=== PATIENT | male | born 1945 | race Caucasian/White ===

== ENCOUNTER 2017-06-28 10:09 | Inpatient (IN) | payer MEDICARE, OTHER ==
--- NOTE | 2017-06-28 11:17 | ED ---
Weakness HPI - General Chief complaint: Weakness Stated complaint: sent by doctor Time Seen by Provider: 06/28/17 10:45 Source: patient, RN notes reviewed Mode of arrival: wheelchair Limitations: no limitations - History of Present Illness Initial comments: This is a 72-year-old male who was sent from an outpatient clinic for evaluation for possible DVT. Patient has had a cough for about 2 weeks even feeling weak tired he developed a fever last evening he also has erythema and a positive Homans sign to the right lower extremity. He did have a blood pressure 104/68 QRS 96 and a room air at the clinic. He has no prior history of DVTs. His other complaints at this time MD Complaint: generalized weakness - Related Data Home Medications Medication Instructions Recorded Confirmed Acetaminophen [Tylenol] 500 mg PO BID 06/28/17 06/28/17 Allopurinol [Zyloprim] 300 mg PO DAILY 06/28/17 06/28/17 Aspirin EC [Ecotrin] 325 mg PO DAILY 06/28/17 06/28/17 Atorvastatin [Lipitor] 40 mg PO DAILY 06/28/17 06/28/17 Furosemide [Lasix] 20 mg PO DAILY 06/28/17 06/28/17 Gemfibrozil [Lopid] 600 mg PO AC-BID 06/28/17 06/28/17 Glimepiride [Amaryl] 1 mg PO DAILY 06/28/17 06/28/17 Lisinopril [Zestril] 20 mg PO DAILY 06/28/17 06/28/17 Metoprolol Tartrate [Lopressor] 50 mg PO BID 06/28/17 06/28/17 Multivitamins, Thera [Multivitamin 1 tab PO DAILY 06/28/17 06/28/17 (formulary)] Omega3/Dha/Epa/Fish Oil/Vit D3 1 cap PO BID 06/28/17 06/28/17 [Fish Oil-Vit D3 Softgel] Pantoprazole Sodium 40 mg PO DAILY 06/28/17 06/28/17 Potassium Chloride ER [K-Dur 10] 10 meq PO DAILY 06/28/17 06/28/17 Allergies Allergy/AdvReac Type Severity Reaction Status Date / Time No Known Allergies Allergy Verified 06/28/17 10:34 Review of Systems ROS Statement: Those systems with pertinent positive or pertinent negative responses have been documented in the HPI. ROS Other: All systems not noted in ROS Statement are negative. Past Medical History Past Medical History: Diabetes Mellitus, Hyperlipidemia, Hypertension History of Any Multi-Drug Resistant Organisms: None Reported Past Surgical History: Coronary Bypass/CABG, Heart Catheterization, Orthopedic Surgery Additional Past Surgical History / Comment(s): bl KNEE Past Psychological History: No Psychological Hx Reported Smoking Status: Never smoker Past Alcohol Use History: None Reported Past Drug Use History: None Reported General Exam - General Exam Comments Initial Comments: This is a well-developed well-nourished awake alert oriented times 3 male Limitations: no limitations General appearance: alert, in no apparent distress Head exam: Present: atraumatic, normocephalic, normal inspection Eye exam: Present: normal appearance, PERRL, EOMI. Absent: scleral icterus, conjunctival injection, periorbital swelling ENT exam: Present: normal exam, mucous membranes moist Neck exam: Present: normal inspection. Absent: tenderness, meningismus, lymphadenopathy Respiratory exam: Present: normal lung sounds bilaterally. Absent: respiratory distress, wheezes, rales, rhonchi, stridor Cardiovascular Exam: Present: regular rate, normal rhythm, normal heart sounds. Absent: systolic murmur, diastolic murmur, rubs, gallop, clicks GI/Abdominal exam: Present: soft, normal bowel sounds. Absent: distended, tenderness, guarding, rebound, rigid Extremities exam: Present: full ROM, normal capillary refill, other (Right calf tenderness with erythema noted to the anterior right lower extremity consistent with a localized cellulitis. No palpable cords.). Absent: tenderness, pedal edema, joint swelling, calf tenderness Back exam: Present: normal inspection Neurological exam: Present: alert, oriented X3, CN II-XII intact Psychiatric exam: Present: normal affect, normal mood Skin exam: Present: warm, dry, intact, normal color. Absent: rash Course Vital Signs 06/28/17 06/28/17 06/28/17 10:16 11:20 12:00 Temperature 100.4 F H Pulse Rate 79 60 74 Respiratory 18 18 18 Rate Blood Pressure 112/71 127/66 108/66 O2 Sat by Pulse 95 95 97 Oximetry 06/28/17 06/28/17 13:00 14:00 Temperature Pulse Rate 78 80 Respiratory 18 18 Rate Blood Pressure 108/66 124/67 O2 Sat by Pulse 94 L 96 Oximetry EKG Findings - EKG Results: EKG: interpreted by BEATRIZ, sinus rhythm (Sinus rhythm rate 67. Interval 190 QRS duration 86 QT since QTC of 406/429, Q waves in lead [address]-T wave changes) Medical Decision Making - Medical Decision Making I did a long discussion with the patient and family regarding findings. Discuss case with the inpatient physician. Patient be admitted place an IV antibiotics. - Lab Data Result diagrams: 06/28/17 10:36 06/28/17 10:36 Lab Results 06/28/17 06/28/17 06/28/17 Range/Units 10:36 10:36 10:36 WBC (3.8-10.6) k/uL RBC (4.30-5.90) m/uL Hgb (13.0-17.5) gm/dL Hct (39.0-53.0) % MCV (80.0-100.0) fL MCH (25.0-35.0) pg MCHC (31.0-37.0) g/dL RDW (11.5-15.5) % Plt Count (150-450) k/uL Neutrophils % % Lymphocytes % % Monocytes % % Eosinophils % % Basophils % % Neutrophils # (1.3-7.7) k/uL Lymphocytes # (1.0-4.8) k/uL Monocytes # (0-1.0) k/uL Eosinophils # (0-0.7) k/uL Basophils # (0-0.2) k/uL PT (9.0-12.0) sec INR (<1.2) APTT (22.0-30.0) sec D-Dimer (<0.60) mg/L FEU Sodium 144 (137-145) mmol/L Potassium 4.9 (3.5-5.1) mmol/L Chloride 107 (98-107) mmol/L Carbon Dioxide 24 (22-30) mmol/L Anion Gap 13 mmol/L BUN 24 H (9-20) mg/dL Creatinine 1.45 H (0.66-1.25) mg/dL Est GFR (MDRD) Af Amer 58 (>60 ml/min/1.73 sqM) Est GFR (MDRD) Non-Af 48 (>60 ml/min/1.73 sqM) Glucose 103 H (74-99) mg/dL Calcium 9.2 (8.4-10.2) mg/dL Magnesium 1.7 (1.6-2.3) mg/dL Total Bilirubin 1.2 (0.2-1.3) mg/dL AST 54 (17-59) U/L ALT 62 (21-72) U/L Alkaline Phosphatase 73 (38-126) U/L Total Creatine Kinase 148 (55-170) U/L CK-MB (CK-2) 0.7 (0.0-2.4) ng/mL CK-MB (CK-2) Rel Index 0.5 Troponin I <0.012 (0.000-0.034) ng/mL NT-Pro-B Natriuret Pep 218 pg/mL Total Protein 7.2 (6.3-8.2) g/dL Albumin 4.5 (3.5-5.0) g/dL Urine Color Urine Appearance (Clear) Urine pH (5.0-8.0) Ur Specific [place] (1.001-1.035) Urine Protein (Negative) Urine Glucose (UA) (Negative) Urine Ketones (Negative) Urine Blood (Negative) Urine Nitrite (Negative) Urine Bilirubin (Negative) Urine Urobilinogen (<2.0) mg/dL Ur Leukocyte Esterase (Negative) 06/28/17 06/28/17 06/28/17 Range/Units 10:36 10:36 11:43 WBC 11.4 H (3.8-10.6) k/uL RBC 4.89 (4.30-5.90) m/uL Hgb 15.0 (13.0-17.5) gm/dL Hct 44.2 (39.0-53.0) % MCV 90.2 (80.0-100.0) fL MCH 30.7 (25.0-35.0) pg MCHC 34.1 (31.0-37.0) g/dL RDW 13.7 (11.5-15.5) % Plt Count 162 (150-450) k/uL Neutrophils % 69 % Lymphocytes % 17 % Monocytes % 9 % Eosinophils % 1 % Basophils % 1 % Neutrophils # 7.9 H (1.3-7.7) k/uL Lymphocytes # 2.0 (1.0-4.8) k/uL Monocytes # 1.0 (0-1.0) k/uL Eosinophils # 0.1 (0-0.7) k/uL Basophils # 0.1 (0-0.2) k/uL PT 11.7 (9.0-12.0) sec INR 1.2 H (<1.2) APTT 23.6 (22.0-30.0) sec D-Dimer 0.58 (<0.60) mg/L FEU Sodium (137-145) mmol/L Potassium (3.5-5.1) mmol/L Chloride (98-107) mmol/L Carbon Dioxide (22-30) mmol/L Anion Gap mmol/L BUN (9-20) mg/dL Creatinine (0.66-1.25) mg/dL Est GFR (MDRD) Af Amer (>60 ml/min/1.73 sqM) Est GFR (MDRD) Non-Af (>60 ml/min/1.73 sqM) Glucose (74-99) mg/dL Calcium (8.4-10.2) mg/dL Magnesium (1.6-2.3) mg/dL Total Bilirubin (0.2-1.3) mg/dL AST (17-59) U/L ALT (21-72) U/L Alkaline Phosphatase (38-126) U/L Total Creatine Kinase (55-170) U/L CK-MB (CK-2) (0.0-2.4) ng/mL CK-MB (CK-2) Rel Index Troponin I (0.000-0.034) ng/mL NT-Pro-B Natriuret Pep pg/mL Total Protein (6.3-8.2) g/dL Albumin (3.5-5.0) g/dL Urine Color Light Yellow Urine Appearance Clear (Clear) Urine pH 5.0 (5.0-8.0) Ur Specific [place] 1.005 (1.001-1.035) Urine Protein Negative (Negative) Urine Glucose (UA) Negative (Negative) Urine Ketones Negative (Negative) Urine Blood Negative (Negative) Urine Nitrite Negative (Negative) Urine Bilirubin Negative (Negative) Urine Urobilinogen <2.0 (<2.0) mg/dL Ur Leukocyte Esterase Negative (Negative) - Radiology Data Radiology results: report reviewed (I did review the imaging and reports no evidence of pulmonary emboli.), image reviewed Disposition Clinical Impression: Cellulitis of right lower extremity, Febrile illness, acute, Leg pain Disposition: ADMITTED IP TO THIS [facility] Condition: Stable Referrals: Angeline Iglesias DO [Primary Care Provider] - 1-2 days Decision Time: 14:30
[2017-06-28 11:48] LABS: Basophils # (A) 0.1 k/uL (0-0.2); Basophils % (A) 1 %; CH 30.7; CHCM 34.2; Eosinophils # (A) 0.1 k/uL (0-0.7); Eosinophils % (A) 1 %; HCT 44.2 % (39.0-53.0); HDW 2.58; Luc # (Auto) 0.36; Luc % (Auto) 3; Lymphocytes % (A) 17 %; MCH 30.7 pg (25.0-35.0); MCHC 34.1 g/dL (31.0-37.0); MCV 90.2 fL (80.0-100.0); Mean Platelet Volume 7.6; Monocytes % (A) 9 %; Neutrophils # (A) 7.9 k/uL (1.3-7.7); Neutrophils % (A) 69 %; RBC 4.89 m/uL (4.30-5.90); RDW 13.7 % (11.5-15.5); WBC 11.4 k/uL (3.8-10.6); WBC (Perox) 10.88
[2017-06-28 11:53] LABS: Calcium 9.2 mg/dL (8.4-10.2); Magnesium 1.7 mg/dL (1.6-2.3); Total Bilirubin 1.2 mg/dL (0.2-1.3); Total Protein 7.2 g/dL (6.3-8.2)
[2017-06-28 11:54] LABS: Potassium 4.9 mmol/L (3.5-5.1)
[2017-06-28 11:58] LABS: INR 1.2 (<1.2); Partial Thromboplastin Time 23.6 sec (22.0-30.0); Prothrombin Time 11.7 sec (9.0-12.0)
[2017-06-28 12:04] LABS: Appearance,Urine Clear (Clear); Bilirubin,Urine Negative (Negative); Glucose,Urine (UA) Negative (Negative); Ketones,Urine Negative (Negative); Leukocyte Esterase,Urine Negative (Negative); Nitrite,Urine Negative (Negative); Protein,Urine Negative (Negative); Specific Gravity,Urine 1.005 (1.001-1.035); UA Billing (MACRO vs. MICRO) CHEM; Urobilinogen,Urine <2.0 mg/dL (<2.0)
[2017-06-28 12:05] LABS: Creatine Kinase 148 U/L (55-170)
--- NOTE | 2017-06-28 12:11 | XR ---
EXAMINATION TYPE: XR chest 2V DATE OF EXAM: 06/28/2017 COMPARISON: None HISTORY: 72-year-old male with weakness TECHNIQUE: Frontal and lateral views FINDINGS: Heart is normal size. Median sternotomy wires with post-CABG clips. Strandy atelectasis in the lower lungs. No consolidation or pleural effusion. Bridging anterior endplate spondylosis upper to midthora cic spine suggestive of DISH. IMPRESSION: No acute cardiopulmonary process.
[2017-06-28 12:18] LABS: Creatine Kinase MB 0.7 ng/mL (0.0-2.4); Troponin I <0.012 ng/mL (0.000-0.034)
--- NOTE | 2017-06-28 12:58 | US ---
EXAMINATION TYPE: US venous doppler duplex LE RT DATE OF EXAM: 06/28/2017 12:31 PM COMPARISON: NONE CLINICAL HISTORY: 72-year-old male with Pain. SIDE PERFORMED: Right TECHNIQUE: The lower extremity deep venous system is examined utilizing real time linear array sonog aneesh with graded compression, doppler sonography and color-flow sonography. FINDINGS: [employer] ARCHITECT NOTES: Patient of large body habitus making exam technically difficult. VESSELS IMAGED: External Iliac Vein (EIV) Common Femoral Vein Deep Femoral Vein Greater Saphenous Vein * Femoral Vein Popliteal Vein Small Saphenous Vein * Proximal Calf Veins (* superficial vessels) Right Leg: Appears negative for DVT. IMPRESSION: Technically difficult exam but without evidence for DVT within the right lower extremity imaged from the groin to the upper calf.
[2017-06-28] MEDS ORDERED: PIPERACILLIN-TAZOBACTAM 3.375 GM in DEXTROSE/WATER 1 50ML.BAG IVPB STA (14:02)
[2017-06-28] MEDS ORDERED: NALOXONE 0.4 MG/ML 1 ML VIAL IV PRN (15:28)
[2017-06-28] MEDS ORDERED: ACETAMINOPHEN TAB 325 MG TAB PO PRN (15:28)
[2017-06-28 16:52] VITALS: BMI 38.5
[2017-06-28] MEDS: SODIUM CHLORIDE 0.9% 1,000 ML IV SCH (17:02)
[2017-06-28] MEDS: HEPARIN SODIUM,PORCINE 5,000 UNIT/ML 1 ML VIAL SQ SCH ×2 (17:03→23:12)
[2017-06-28] MEDS ORDERED: GEMFIBROZIL 600 MG TAB PO SCH (17:30)
[2017-06-28 17:32] LABS: Glucose,Whole Blood 89 mg/dL (75-99)
[2017-06-28] MEDS: INSULIN LISPRO (humaLOG) 300 UNIT/3 ML VIAL SQ SCH ×2 (17:38→21:13)
[2017-06-28 17:55] LABS: Hemoglobin A1C 6.8 % (4.2-6.1)
[2017-06-28 20:05] LABS: Glucose,Whole Blood 101 mg/dL (75-99)
[2017-06-28] MEDS ORDERED: EPA PO SCH (21:00)
[2017-06-28] MEDS ORDERED: VIT D3 PO SCH (21:00)
[2017-06-28] MEDS ORDERED: DHA PO SCH (21:00)
[2017-06-28] MEDS ORDERED: FISH OIL PO SCH (21:00)
[2017-06-28] MEDS ORDERED: OMEGA3 PO SCH (21:00)
[2017-06-28] MEDS: GEMFIBROZIL 600 MG TAB PO SCH (21:11)
[2017-06-28] MEDS: METOPROLOL TARTRATE 50 MG TAB PO SCH (21:11)
[2017-06-29] MEDS: GEMFIBROZIL 600 MG TAB PO SCH ×2 (06:14→22:00)
[2017-06-29 07:05] LABS: Glucose,Whole Blood 117 mg/dL (75-99)
[2017-06-29] MEDS: GLIMEPIRIDE 1 MG TAB PO SCH (08:13)
[2017-06-29] MEDS: ATORVASTATIN 40 MG TAB PO SCH (08:14)
[2017-06-29] MEDS: MULTIVITAMINS, THERA 1 EACH TAB PO SCH (08:14)
[2017-06-29] MEDS: LISINOPRIL 20 MG TAB PO SCH (08:14)
[2017-06-29] MEDS: POTASSIUM CHLORIDE ER 10 MEQ TAB.ER.PRT PO SCH (08:14)
[2017-06-29] MEDS: ASPIRIN 325 MG TAB PO SCH (08:14)
[2017-06-29] MEDS: METOPROLOL TARTRATE 50 MG TAB PO SCH ×2 (08:14→22:00)
[2017-06-29] MEDS: ALLOPURINOL 300 MG TAB PO SCH (08:15)
[2017-06-29] MEDS: INSULIN LISPRO (humaLOG) 300 UNIT/3 ML VIAL SQ SCH ×4 (08:15→23:27)
[2017-06-29] MEDS: PANTOPRAZOLE 40 MG TABLET PO SCH (08:15)
[2017-06-29] MEDS: HEPARIN SODIUM,PORCINE 5,000 UNIT/ML 1 ML VIAL SQ SCH ×3 (08:15→23:27)
[2017-06-29] MEDS ORDERED: FUROSEMIDE 20 MG TAB PO SCH (09:00)
[2017-06-29 11:39] LABS: Glucose,Whole Blood 201 mg/dL (75-99)
[2017-06-29] MEDS: SODIUM CHLORIDE 0.9% 1,000 ML IV SCH ×2 (11:45→18:20)
[2017-06-29] MEDS ORDERED: ceFAZolin 2 GM in SODIUM CHLORIDE 0.9% 100 ML IVPB SCH (12:00)
--- NOTE | 2017-06-29 14:13 | P.HPIM ---
History of Present Illness H&P Date: 06/29/17 Chief Complaint: Redness and pain right lower extremity This is a 72-year-old male, patient of [facility]. 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 Patient presents to the emergency room with complaints of redness along the right lower extremity with some pain and discomfort. His PCP was concerned about a possible DVT. A Doppler was completed and was negative for DVT. Patient was admitted to the hospital for right lower extremity cellulitis. He had low- grade temps of 100.4 and white count was elevated at 11.4. Patient was having fevers at home and a mild cough. But does admit to having chronic cough with his SALMA inhibitor that he just deals with. Patient also reports being in and February and had multiple ticks on his body. He doesn't remember having any tick bites. He also reports having a history of MRSA in his right great toe. Patient was given 1 dose of IV Zosyn in the emergency room. He'll be started on IV ceftezole and infectious disease consulted. Chest x-ray was negative and EKG shows normal sinus rhythm. Patient denies any chest pain or shortness of breath. Denies any nausea or vomiting. Denies any bowel movement changes or urinary symptoms. Review of Systems Please refer to HPI otherwise unremarkable Past Medical History Past Medical History: Diabetes Mellitus, Hyperlipidemia, Hypertension Additional Past Medical History / Comment(s): Coronary artery disease with previous CABG 3 vessel, myocardial infarction History of Any Multi-Drug Resistant Organisms: None Reported Past Surgical History: Coronary Bypass/CABG, Heart Catheterization, Orthopedic Surgery Additional Past Surgical History / Comment(s): bl KNEE Past Anesthesia/Blood Transfusion Reactions: No Reported Reaction Past Psychological History: No Psychological Hx Reported Smoking Status: Never smoker Past Alcohol Use History: None Reported Past Drug Use History: None Reported Medications and Allergies Home Medications Medication Instructions Recorded Confirmed Type Acetaminophen [Tylenol] 500 mg PO BID 06/28/17 06/28/17 History Allopurinol [Zyloprim] 300 mg PO DAILY 06/28/17 06/28/17 History Aspirin EC [Ecotrin] 325 mg PO DAILY 06/28/17 06/28/17 History Atorvastatin [Lipitor] 40 mg PO DAILY 06/28/17 06/28/17 History Furosemide [Lasix] 20 mg PO DAILY 06/28/17 06/28/17 History Gemfibrozil [Lopid] 600 mg PO AC-BID 06/28/17 06/28/17 History Glimepiride [Amaryl] 1 mg PO DAILY 06/28/17 06/28/17 History Lisinopril [Zestril] 20 mg PO DAILY 06/28/17 06/28/17 History Metoprolol Tartrate [Lopressor] 50 mg PO BID 06/28/17 06/28/17 History Multivitamins, Thera [Multivitamin 1 tab PO DAILY 06/28/17 06/28/17 History (formulary)] Omega3/Dha/Epa/Fish Oil/Vit D3 1 cap PO BID 06/28/17 06/28/17 History [Fish Oil-Vit D3 Softgel] Pantoprazole Sodium 40 mg PO DAILY 06/28/17 06/28/17 History Potassium Chloride ER [K-Dur 10] 10 meq PO DAILY 06/28/17 06/28/17 History Allergies Allergy/AdvReac Type Severity Reaction Status Date / Time hazelnut Allergy Anaphylaxis Verified 06/28/17 17:25 Physical Exam Vitals: Vital Signs Temp Pulse Pulse Resp BP BP Pulse Ox 06/29/17 08:00 68 16 06/29/17 07:00 98.5 F 68 16 135/74 95 06/29/17 00:00 92 16 06/28/17 23:09 98.1 F 100/67 06/28/17 21:56 100.4 F H 92 16 169/89 92 L 06/28/17 16:03 100 F H 79 20 124/67 96 Intake and Output 06/28/17 06/29/17 06/29/17 22:59 06:59 14:59 Intake Total 140 245 580 Balance 140 245 580 Intake: Intake, IV Titration 245 100 Amount Sodium Chloride 0.9% 1, 245 000 ml @ 75 mls/hr IV . [id number] MADDIE Rx#:[id number] ceFAZolin 2 gm In Sodium 100 Chloride 0.9% 100 ml @ 100 mls/hr IVPB Q8HR MADDIE Rx#:[id number] Oral 140 480 Other: Voiding Method Toilet # Voids 1 1 3 # Bowel Movements 1 Weight 125.191 kg 125.191 kg 125.191 kg Patient Weight 06/30/17 06:59 Weight 125.191 kg Head normocephalic Neck supple Lungs clear to auscultation bilaterally no wheezing or crackles Heart regular rate and rhythm S1-S2, no rub or gallop Abdomen is soft nontender nondistended positive bowel sounds no hepatosplenomegaly Extremities no edema. Right lower extremity along the medial aspect of the lower right leg evidence of erythema and warmth to touch. No significant pain with palpation Neuro alert and orientated to 3 Results CBC & Chem 7: 06/28/17 10:36 06/28/17 10:36 Labs: Abnormal Lab Results - Last 24 Hours (Table) 06/28/17 06/28/17 06/29/17 Range/Units 11:30 20:04 07:04 POC Glucose (mg/dL) 101 H 117 H (75-99) mg/dL Hemoglobin A1c 6.8 H (4.2-6.1) % 06/29/17 Range/Units 11:38 POC Glucose (mg/dL) 201 H (75-99) mg/dL Hemoglobin A1c (4.2-6.1) % Microbiology - Last 24 Hours (Table) 06/28/17 10:36 Blood Culture - Preliminary Blood No Growth after 24 hours Thrombosis Risk Factor Assmnt - Choose All That Apply Any of the Below Risk Factors Present?: Yes Each Factor Represents 1 point: Obesity (BMI >25) Other Risk Factors: Yes Each Risk Factor Represents 2 Points: Age 61-74 years Thrombosis Risk Factor Assessment Total Risk Factor Score: 3 Thrombosis Risk Factor Assessment Level: Moderate Risk Assessment and Plan Plan: 1. Right lower extremity cellulitis: Patient is currently on cefazolin in 2 g every 8 hours. Consult infectious disease. Blood culture pending. Low-grade temps of 100.4 and white count 11.4 on admission. Patient hasn't had exposure to ticks. We'll await further infectious disease recommendations 2. Acute kidney injury: Creatinine 1.45 on admission. Discontinue Lasix and place patient on normal saline at 75 mL an hour 3. Diabetes mellitus type 2 continue the Amaryl. Add sliding scale coverage. 4. Essential hypertension: Blood pressure stable continue metoprolol and lisinopril 5. History of coronary artery disease with previous myocardial infarction and coronary artery bypass graft 3 vessel 6. Hyperlipidemia continue Lipitor DVT prophylaxis subcu heparin GI prophylaxis Protonix Time with Patient: Greater than 30 (Greater than 50% of the total time spent in counseling and coordination of care.I performed an examination of the patient and discussed their management with the physician [employer] Broker. I have reviewed the Physician [employer]oles[employer] Diamond Broker's notes and agree with the documented findings and plan of care)
[2017-06-29 16:58] LABS: Glucose,Whole Blood 89 mg/dL (75-99)
[2017-06-29] MEDS: ceFAZolin 2 GM in SODIUM CHLORIDE 0.9% 100 ML IVPB SCH ×2 (18:49→23:27)
[2017-06-29 20:37] LABS: Glucose,Whole Blood 154 mg/dL (75-99)
[2017-06-29 23:41] LABS: Glucose,Whole Blood 133 mg/dL (75-99)
[2017-06-30] MEDS: GEMFIBROZIL 600 MG TAB PO SCH (05:43)
[2017-06-30 07:01] LABS: Basophils # (A) 0.1 k/uL (0-0.2); Basophils % (A) 1 %; CH 31.7; CHCM 34.6; Eosinophils # (A) 0.2 k/uL (0-0.7); Eosinophils % (A) 3 %; HCT 42.1 % (39.0-53.0); HDW 2.67; HGB 13.9 gm/dL (13.0-17.5); Luc # (Auto) 0.29; Luc % (Auto) 4; Lymphocytes # (A) 1.6 k/uL (1.0-4.8); Lymphocytes % (A) 24 %; MCH 30.4 pg (25.0-35.0); MCHC 33.1 g/dL (31.0-37.0); MCV 92.1 fL (80.0-100.0); Monocytes # (A) 0.7 k/uL (0-1.0); Monocytes % (A) 11 %; Neutrophils # (A) 3.8 k/uL (1.3-7.7); Neutrophils % (A) 58 %; RBC 4.57 m/uL (4.30-5.90); RDW 14.4 % (11.5-15.5); WBC 6.7 k/uL (3.8-10.6); WBC (Perox) 6.12
[2017-06-30 07:17] LABS: ALT 43 U/L (21-72); AST 42 U/L (17-59); Alkaline Phosphatase 73 U/L (38-126); Anion Gap 10 mmol/L; Blood Urea Nitrogen 22 mg/dL (9-20); Calcium 8.5 mg/dL (8.4-10.2); Carbon Dioxide 20 mmol/L (22-30); Chloride 109 mmol/L (98-107); Glucose 102 mg/dL (74-99); Non-African American GFR(MDRD) 60 (>60 ml/min/1.73 sqM); Potassium 3.9 mmol/L (3.5-5.1); Sodium 139 mmol/L (137-145); Total Bilirubin 0.7 mg/dL (0.2-1.3)
[2017-06-30] MEDS: INSULIN LISPRO (humaLOG) 300 UNIT/3 ML VIAL SQ SCH ×2 (07:37→12:26)
[2017-06-30] MEDS: ceFAZolin 2 GM in SODIUM CHLORIDE 0.9% 100 ML IVPB SCH (07:44)
[2017-06-30] MEDS: HEPARIN SODIUM,PORCINE 5,000 UNIT/ML 1 ML VIAL SQ SCH (07:46)
[2017-06-30] MEDS: ASPIRIN 325 MG TAB PO SCH (07:46)
[2017-06-30] MEDS: GLIMEPIRIDE 1 MG TAB PO SCH (07:47)
[2017-06-30] MEDS: POTASSIUM CHLORIDE ER 10 MEQ TAB.ER.PRT PO SCH (07:47)
[2017-06-30] MEDS: LISINOPRIL 20 MG TAB PO SCH (07:47)
[2017-06-30] MEDS: ALLOPURINOL 300 MG TAB PO SCH (07:47)
[2017-06-30] MEDS: ATORVASTATIN 40 MG TAB PO SCH (07:47)
[2017-06-30] MEDS: METOPROLOL TARTRATE 50 MG TAB PO SCH (07:47)
[2017-06-30] MEDS: PANTOPRAZOLE 40 MG TABLET PO SCH (07:48)
[2017-06-30] MEDS: SODIUM CHLORIDE 0.9% 1,000 ML IV SCH (07:48)
[2017-06-30] MEDS: MULTIVITAMINS, THERA 1 EACH TAB PO SCH (07:48)
[2017-06-30 08:24] VITALS: BP 147/81; PULSE 62; RESP 16; TEMP 98.6
[2017-06-30 12:07] LABS: Glucose,Whole Blood 126 mg/dL (75-99)
--- NOTE | 2017-06-30 13:27 | P.DS ---
Providers Date of admission: 06/28/17 15:28 Expected date of discharge: 06/30/17 Attending physician: Saad Arauz Consults: 06/29/17 11:10 Consult Physician Routine Consulting Provider: Juliette Dominguez Consult Reason/Comments: cellulitis Do you want consulting provider notified?: Yes Primary care physician: Angeline [facility] Course: 1. Right lower extremity cellulitis: Patient is currently on cefazolin in 2 g every 8 hours. Consult infectious disease. Blood culture negative. Low-grade temps of 100.4 and white count 11.4 on admission. White count has now normalized. Patient is been afebrile. Doppler negative for DVT 2. Acute kidney injury: Likely secondary to dehydration and diuretics. Creatinine 1.45 on admission. Lasix held during this admission. Creatinine has normalized. 3. Diabetes mellitus type 2 continue the Amaryl. Add sliding scale coverage. 4. Essential hypertension: Blood pressure stable continue metoprolol and lisinopril 5. History of coronary artery disease with previous myocardial infarction and coronary artery bypass graft 3 vessel 6. Hyperlipidemia continue Lipitor Hospital course This is a 72-year-old male, patient of [facility]. 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 Patient presents to the emergency room with complaints of redness along the right lower extremity with some pain and discomfort. His PCP was concerned about a possible DVT. A Doppler was completed and was negative for DVT. Patient was admitted to the hospital for right lower extremity cellulitis. He had low- grade temps of 100.4 and white count was elevated at 11.4. Patient was having fevers at home and a mild cough. But does admit to having chronic cough with his SALMA inhibitor that he just deals with. Patient also reports being in and February and had multiple ticks on his body. He doesn't remember having any tick bites. He also reports having a history of MRSA in his right great toe. Patient was given 1 dose of IV Zosyn in the emergency room. He'll be started on IV kefzol and infectious disease consulted. Chest x-ray was negative and EKG shows normal sinus rhythm. Patient denies any chest pain or shortness of breath. Denies any nausea or vomiting. Denies any bowel movement changes or urinary symptoms. Patient's symptoms have shown great improvement. He is afebrile. White count has normalized. Patient is eager for discharge home. He'll be evaluated by infectious disease one more time prior to discharge and await their antibiotic recommendations. Kidney functions have improved creatinine is back to normal. Lasix can be resumed tomorrow. Patient is medically stable for discharge once seen by infectious disease. Recommend to check a BMP in 1 week I performed an examination of the patient and discussed their management with the physician [employer] Engineer. I have reviewed the Physician [employer] Engineer's notes and agree with the documented findings and plan of care Patient Condition at Discharge: Stable Plan - Discharge Summary New Discharge Prescriptions: Continue Omega3/Dha/Epa/Fish Oil/Vit D3 [Fish Oil-Vit D3 Softgel] 1 cap PO BID Multivitamins, Thera [Multivitamin (formulary)] 1 tab PO DAILY Atorvastatin [Lipitor] 40 mg PO DAILY Aspirin EC [Ecotrin] 325 mg PO DAILY Acetaminophen [Tylenol] 500 mg PO BID Pantoprazole Sodium 40 mg PO DAILY Metoprolol Tartrate [Lopressor] 50 mg PO BID Lisinopril [Zestril] 20 mg PO DAILY Glimepiride [Amaryl] 1 mg PO DAILY Furosemide [Lasix] 20 mg PO DAILY Allopurinol [Zyloprim] 300 mg PO DAILY Potassium Chloride ER [K-Dur 10] 10 meq PO DAILY Gemfibrozil [Lopid] 600 mg PO AC-BID Discharge Medication List Acetaminophen [Tylenol] 500 mg PO BID 06/28/17 [History] Allopurinol [Zyloprim] 300 mg PO DAILY 06/28/17 [History] Aspirin EC [Ecotrin] 325 mg PO DAILY 06/28/17 [History] Atorvastatin [Lipitor] 40 mg PO DAILY 06/28/17 [History] Furosemide [Lasix] 20 mg PO DAILY 06/28/17 [History] Gemfibrozil [Lopid] 600 mg PO AC-BID 06/28/17 [History] Glimepiride [Amaryl] 1 mg PO DAILY 06/28/17 [History] Lisinopril [Zestril] 20 mg PO DAILY 06/28/17 [History] Metoprolol Tartrate [Lopressor] 50 mg PO BID 06/28/17 [History] Multivitamins, Thera [Multivitamin (formulary)] 1 tab PO DAILY 06/28/17 [History ] Omega3/Dha/Epa/Fish Oil/Vit D3 [Fish Oil-Vit D3 Softgel] 1 cap PO BID 06/28/17 [ History] Pantoprazole Sodium 40 mg PO DAILY 06/28/17 [History] Potassium Chloride ER [K-Dur 10] 10 meq PO DAILY 06/28/17 [History] Cephalexin [Keflex] 500 mg PO Q6HR #40 cap 06/30/17 [Rx] Follow up Appointment(s)/Referral(s): Angeline Iglesias DO [Primary Care Provider] - 1 Week Activity/Diet/Wound Care/Special Instructions: Diet: cardiac, diabetic Activity: as tolerated Discharge Disposition: HOME SELF-CARE
--- NOTE | 2017-06-30 13:46 | CONS ---
DATE OF SERVICE: 06/29/2017 REASON FOR CONSULTATION: Right lower extremity cellulitis. HISTORY OF PRESENT ILLNESS: The patient is a 72-year-old male who presented to the ER with chief complaints of swelling and redness of his right lower extremity. Currently his symptoms have been going on for about two days prior to admission to the hospital. The patient had some discomfort along with swelling and redness of the right leg. The pain is described to be more of a dull aching, 2-3 out of 10, especially when the area is touched. There is no skin breakdown. There is no drainage. The patient did have a low grade fever of 100.4 and elevated white. The patient has been evaluated by the ER physician. Did have lower extremity Doppler that had been negative for DVT. The patient was started on Zosyn in the ER, however, subsequent ( ) and ID was consulted for further recommendation regarding antibiotic therapy. REVIEW OF SYSTEMS: CONSTITUTIONAL: Positive for weakness and a fever. EYES: No complaint. ENT: No complaint. RESPIRATORY: No complaint. CARDIOVASCULAR: No complaint. GENITOURINARY: No complaint. GASTROINTESTINAL: No complaint. MUSCULOSKELETAL: No complaint. INTEGUMENTARY: As per HPI. PSYCHOLOGICAL: No complaint. ENDOCRINE: No complaint. IMMUNOLOGIC: No complaint. PAST MEDICAL HISTORY: Hypertension, hyperlipidemia, diabetes mellitus, coronary artery disease. PAST SURGICAL HISTORY: Heart catheterization, coronary artery bypass grafting and bilateral knee surgery. SOCIAL HISTORY: No history of smoking, drinking or drug use. FAMILY HISTORY: No pertinent findings were noted. ALLERGIES: No known drug allergies. MEDICATION: The patient is currently on Tylenol, Zyloprim, aspirin, Lipitor, cefazolin 2 gm q12, Lopid, Amaryl, heparin, Humalog, Zestril, Lopressor, Theragran, Marcaine, Protonix, K-Dur. On examination, blood pressure 124/57 with a pulse of 71, temperature 99.1, T- max of 100.4. He is 95% on room air. GENERAL DESCRIPTION: Elderly male lying in bed in no distress. No tachypnea or muscles of respiration used. HEENT: Showed no pallor or scleral icterus. Oral mucosa dry. NECK: Trachea central. No thyromegaly. LUNGS: Unlabored breathing. Clear to auscultation anteriorly. HEART: S1/S2 regular rate. ABDOMEN: Soft. No tenderness, no rigidity. EXTREMITIES: Right leg did have swelling, redness, slightly warm to touch. No skin breakdown and no evidence of athlete's foot. NEUROLOGIC: The patient is awake, alert and oriented x3. Mood and affect normal. LABS: Hemoglobin 15, white count 11.4. BUN 24 with a creatinine 1.45. Electrolytes have been normal. Liver enzymes are normal. Urine has been negative. Blood cultures currently pending. DIAGNOSTIC IMPRESSION: The patient in the hospital with acute right lower extremity cellulitis. The patient did have some diffuse swelling and redness with elevated white count and low grade fever. It is likely streptococcal cellulitis. The patient apparently did ahve some improvement with Zosyn and cefazolin he has received in a patient who did have a normal kidney function. PLAN: 1. Will keep cefazolin 2 gm q8h. 2. Wide Reynaldo wrap to the leg. 3. Will follow up in the clinic ( ). Thank you for this consultation. I will follow the patient along with you. BEAN
--- NOTE | 2017-06-30 16:31 | PN ---
DATE OF SERVICE: 06/30/2017 REASON FOR FOLLOW UP: Right lower extremity cellulitis. INTERVAL HISTORY: The patient was seen on rounds early this afternoon. The patient overall is feeling better, breathing comfortably. Right leg swelling and redness improved. Denies significant chest pain, shortness of breath or cough. No abdominal pain or any diarrhea. On examination, blood pressure 147/81 with a pulse of 52, temperature 98.6. He is 97% on room air. GENERAL DESCRIPTION: Elderly male up in the bed in no distress. RESPIRATORY: Unlabored breathing. Clear to auscultation anteriorly. HEART: S1/S2 regular rate. ABDOMEN: Soft. No tenderness. Right leg swelling and redness has improved. LABS: White count is 6.7. Blood culture has been negative. DIAGNOSTIC IMPRESSION: Patient with acute right lower extremity cellulitis, ( ) cefazolin. Did have improvement. Patient interested in going home. Antibiotic was switched over to Keflex 500 mg q6h for 10 days with outpatient follow up. [facility]
== END 2017-06-30 14:00 | disposition home or self-care (01) | DRG 603 ==
LOC: EC 10:09 → 5MS5E 15:28
PROVIDERS: ADMIT Internal Medicine; ATTEND Internal Medicine
DX: L03.115 Cellulitis of right lower limb (principal); N17.9 Acute kidney failure, unspecified; E11.9 Type 2 diabetes mellitus without complications; E86.0 Dehydration; E78.5 Hyperlipidemia, unspecified; I10 Essential (primary) hypertension; I25.10 Atherosclerotic heart disease of native coronary artery without angina pectoris; I25.2 Old myocardial infarction; Z79.899 Other long term (current) drug therapy; Z86.14 Personal history of Methicillin resistant Staphylococcus aureus infection; Z87.442 Personal history of urinary calculi; Z95.1 Presence of aortocoronary bypass graft; Z79.82 Long term (current) use of aspirin
CPT/HCPCS: 36415; 71020; 80053; 81003; 82550; 82553; 83036; 83735; 83880; 84484; 85025; 85379; 85610; 85730; 87040; 93005; 96365; 96366; 99285

== ENCOUNTER 2018-06-13 16:31 | Emergency (ER) | payer MEDICARE, OTHER ==
[2018-06-13] MEDS ORDERED: SODIUM CHLORIDE 0.9% 1,000 ML IV STA (17:34)
[2018-06-13] MEDS ORDERED: ONDANSETRON 4 MG/2 ML VIAL IVP STA (17:34)
[2018-06-13] MEDS ORDERED: MORPHINE SULFATE 4 MG/ML SYRINGE IV STA (17:34)
[2018-06-13] MEDS ORDERED: KETOROLAC 30 MG/ML 1 ML VIAL IVP STA (17:34)
--- NOTE | 2018-06-13 17:38 | ED ---
Abdominal Pain HPI - General Chief Complaint: Abdominal Pain Stated Complaint: Poss Kidney Stone Time Seen by Provider: 06/13/18 17:28 Source: patient Mode of arrival: ambulatory Limitations: no limitations - History of Present Illness Initial Comments: 73-year-old male patient presents to the emergency department today for evaluation of right flank pain. Patient states his been having pain intermittently over the last week however states the pain became much worse. Patient states this is a sharp stabbing pain to the right flank. Denies any radiation of the pain to his abdomen. Denies any nausea, vomiting, constipation , or diarrhea. Denies any difficulty with urination. Denies any hematuria, dysuria, urinary urgency, urinary frequency. States he has had a kidney stone in the past and this feels quite similar. States that it hurts in the right flank to take a deep breath. Denies any cough, chest pain, shortness of breath. Patient denies any recent rash, fever, chills, numbness, tingling, dizziness, weakness, hematuria, dysuria, urinary urgency, urinary frequency, headache, visual changes, or any other complaints. - Related Data Home Medications Medication Instructions Recorded Confirmed Acetaminophen [Tylenol] 500 mg PO BID 06/28/17 06/13/18 Allopurinol [Zyloprim] 300 mg PO DAILY 06/28/17 06/13/18 Aspirin EC [Ecotrin] 325 mg PO DAILY 06/28/17 06/13/18 Atorvastatin [Lipitor] 40 mg PO DAILY 06/28/17 06/13/18 Furosemide [Lasix] 20 mg PO DAILY 06/28/17 06/13/18 Gemfibrozil [Lopid] 600 mg PO AC-BID 06/28/17 06/13/18 Glimepiride [Amaryl] 1 mg PO DAILY 06/28/17 06/13/18 Metoprolol Tartrate [Lopressor] 50 mg PO BID 06/28/17 06/13/18 Multivitamins, Thera [Multivitamin 1 tab PO DAILY 06/28/17 06/13/18 (formulary)] Omega3/Dha/Epa/Fish Oil/Vit D3 1 cap PO BID 06/28/17 06/13/18 [Fish Oil-Vit D3 Softgel] Pantoprazole Sodium 40 mg PO DAILY 06/28/17 06/13/18 Potassium Chloride ER [K-Dur 10] 10 meq PO DAILY 06/28/17 06/13/18 Previous Rx's Medication Instructions Recorded Acetaminophen-Codeine 300-30mg 1 tab PO Q6H PRN #12 tablet 06/13/18 [Tylenol #3] Allergies Allergy/AdvReac Type Severity Reaction Status Date / Time hazelnut Allergy Anaphylaxis Verified 06/13/18 17:55 Review of Systems ROS Statement: Those systems with pertinent positive or pertinent negative responses have been documented in the HPI. ROS Other: All systems not noted in ROS Statement are negative. Past Medical History Past Medical History: Diabetes Mellitus, Hyperlipidemia, Hypertension Additional Past Medical History / Comment(s): Coronary artery disease with previous CABG 3 vessel, myocardial infarction, kidney stones History of Any Multi-Drug Resistant Organisms: None Reported Past Surgical History: Coronary Bypass/CABG, Heart Catheterization, Orthopedic Surgery Additional Past Surgical History / Comment(s): bl KNEE Past Anesthesia/Blood Transfusion Reactions: No Reported Reaction Past Psychological History: No Psychological Hx Reported Smoking Status: Never smoker Past Alcohol Use History: None Reported Past Drug Use History: None Reported General Exam Limitations: no limitations General appearance: alert, in no apparent distress, other (Social well-developed , well-nourished adult male patient in no acute distress. Vital signs upon presentation are temperature 98.3F, pulse 66, respirations 20, blood pressure 132/70, pulse ox 98% on room air.) Eye exam: Present: normal appearance, PERRL, EOMI. Absent: scleral icterus, conjunctival injection, periorbital swelling ENT exam: Present: normal exam, normal oropharynx, mucous membranes moist Respiratory exam: Present: normal lung sounds bilaterally. Absent: respiratory distress, wheezes, rales, rhonchi, stridor Cardiovascular Exam: Present: regular rate, normal rhythm, normal heart sounds. Absent: systolic murmur, diastolic murmur, rubs, gallop, clicks GI/Abdominal exam: Present: soft, normal bowel sounds. Absent: distended, tenderness, guarding, rebound, rigid Back exam: Present: normal inspection, CVA tenderness (R). Absent: CVA tenderness (L) Neurological exam: Present: alert, oriented X3, CN II-XII intact Psychiatric exam: Present: normal affect, normal mood Skin exam: Present: warm, dry, intact, normal color. Absent: rash Course Vital Signs 06/13/18 06/13/18 06/13/18 16:37 18:26 22:52 Temperature 98.3 F 98.5 F Pulse Rate 66 64 78 Respiratory 20 18 20 Rate Blood Pressure 132/78 119/69 140/70 O2 Sat by Pulse 98 98 98 Oximetry Medical Decision Making - Medical Decision Making 73-year-old male patient presented to the emergency department today for evaluation of right flank and right lower back pain. Physical examination did reveal right flank tenderness. Patient did have increased pain with movement and deep breathing. Labs reviewed and were unremarkable. Urine had no evidence of blood. Patient did have a history of kidney stones we did perform CT abdomen and pelvis without contrast, this showed no acute abnormalities, no hydronephrosis, no presence of stones. Patient continued to have significant pain despite a couple doses of pain medicine here in the department, given patient's symptoms we did discuss possible gallbladder dysfunction, patient is going out of town since we did perform ultrasound of the abdomen here, it appeared gallbladder was mildly enlarged at 4.6 cm, no dilation of the ducts no evidence of stones. I did discuss findings and results with the patient. He is instructed to follow-up with his primary care physician for recheck in 1-2 days. Did discuss musculoskeletal pain as a possible cause for his symptoms, patient has no history of back pain does not think this is the case. He is instructed to follow-up as soon as possible. Return parameters discussed in detail. He verbalizes understanding and agree with this plan. - Lab Data Result diagrams: 06/13/18 15:11 06/13/18 15:11 Lab Results 06/13/18 06/13/18 06/13/18 Range/Units 15:11 15:11 19:23 WBC 9.2 (3.8-10.6) k/uL RBC 5.20 (4.30-5.90) m/uL Hgb 15.0 (13.0-17.5) gm/dL Hct 45.8 (39.0-53.0) % MCV 87.9 (80.0-100.0) fL MCH 28.7 (25.0-35.0) pg MCHC 32.7 (31.0-37.0) g/dL RDW 14.2 (11.5-15.5) % Plt Count 211 (150-450) k/uL Neutrophils % 57 % Lymphocytes % 28 % Monocytes % 8 % Eosinophils % 4 % Basophils % 1 % Neutrophils # 5.3 (1.3-7.7) k/uL Lymphocytes # 2.6 (1.0-4.8) k/uL Monocytes # 0.7 (0-1.0) k/uL Eosinophils # 0.3 (0-0.7) k/uL Basophils # 0.1 (0-0.2) k/uL Sodium 143 (137-145) mmol/L Potassium 4.7 (3.5-5.1) mmol/L Chloride 108 H (98-107) mmol/L Carbon Dioxide 26 (22-30) mmol/L Anion Gap 9 mmol/L BUN 20 (9-20) mg/dL Creatinine 1.20 (0.66-1.25) mg/dL Est GFR (CKD-EPI)AfAm 70 (>60 ml/min/1.73 sqM) Est GFR (CKD-EPI)NonAf 61 (>60 ml/min/1.73 sqM) Glucose 91 (74-99) mg/dL Calcium 9.6 (8.4-10.2) mg/dL Total Bilirubin 0.8 (0.2-1.3) mg/dL AST 41 (17-59) U/L ALT 49 (21-72) U/L Alkaline Phosphatase 81 (38-126) U/L Total Protein 7.1 (6.3-8.2) g/dL Albumin 4.5 (3.5-5.0) g/dL Amylase 130 H (30-110) U/L Lipase 442 H (23-300) U/L Urine Color Light Yellow Urine Appearance Clear (Clear) Urine pH 5.0 (5.0-8.0) Ur Specific [place] 1.009 (1.001-1.035) Urine Protein Negative (Negative) Urine Glucose (UA) Negative (Negative) Urine Ketones Negative (Negative) Urine Blood Negative (Negative) Urine Nitrite Negative (Negative) Urine Bilirubin Negative (Negative) Urine Urobilinogen <2.0 (<2.0) mg/dL Ur Leukocyte Esterase Negative (Negative) - Radiology Data Radiology results: report reviewed, image reviewed Two-view x-ray of the abdomen is obtained. Report was reviewed in its entirety. Impression by Dr. Bonny Franco shows no acute process. CT of the abdomen and pelvis without contrast was obtained. Report was reviewed in its entirety. Impression by Dr. Bonny Franco shows no acute process, coronary calcifications noted. Ultrasound of the right upper quadrant was obtained. Report was reviewed in its entirety. Impression by Dr. Montemayor shows gallbladder is mildly dilated and measures 4.6 cm. This could relate to a gallbladder dysfunction. Intrahepatic bile ducts are not dilated. Disposition Clinical Impression: Right flank pain Disposition: HOME SELF-CARE Condition: Good Instructions: Low Fat Diet (ED), Flank Pain (ED) Additional Instructions: Increase fluids. Take pain medication as directed. Follow-up with your primary care physician for recheck in 1-2 days. Return here immediately for any new, worsening, or concerning symptoms. Prescriptions: Acetaminophen-Codeine 300-30mg [Tylenol #3] 1 tab PO Q6H PRN #12 tablet PRN Reason: Pain Is patient prescribed a controlled substance at d/c from ED?: Yes When asked, does pt state using other controlled substances?: Yes If prescribed controlled substance>3 days was MAPS reviewed?: Prescribed <3 Days If opioid is for acute pain is fill amount 7 days or less?: Yes If Rx opioid, was Start Talking consent form obtained?: Yes Referrals: Angeline Iglesias DO [Primary Care Provider] - 1-2 days Time of Disposition: 22:37
--- NOTE | 2018-06-13 17:58 | XR ---
EXAMINATION TYPE: XR KUB, 2 views DATE OF EXAM: 06/13/2018 COMPARISON: NONE HISTORY: Abdominal pain, right flank TECHNIQUE: 2 upright views FINDINGS: Visualized lung bases and pleural spaces are negative. Sternal sutures are noted, and mildl y enlarged cardiac silhouette. There is no pneumoperitoneum. The bowel gas pattern is normal, although excessive right colonic stool volume is No acute skeletal or soft tissue findings are evident. There are no calcifications over the renal sha dows or the expected course of the ureters bilaterally, although bilateral pelvic phleboliths are atul dent. IMPRESSION: No acute process.
[2018-06-13 18:26] LABS: Basophils # (A) 0.1 k/uL (0-0.2); Basophils % (A) 1 %; Eosinophils # (A) 0.3 k/uL (0-0.7); Eosinophils % (A) 4 %; HCT 45.8 % (39.0-53.0); Lymphocytes # (A) 2.6 k/uL (1.0-4.8); Lymphocytes % (A) 28 %; MCH 28.7 pg (25.0-35.0); MCHC 32.7 g/dL (31.0-37.0); MCV 87.9 fL (80.0-100.0); Mean Platelet Volume 7.7; Monocytes # (A) 0.7 k/uL (0-1.0); Monocytes % (A) 8 %; Neutrophils # (A) 5.3 k/uL (1.3-7.7); Neutrophils % (A) 57 %; Platelet Count 211 k/uL (150-450); RDW 14.2 % (11.5-15.5); WBC 9.2 k/uL (3.8-10.6)
[2018-06-13 18:46] LABS: Albumin 4.5 g/dL (3.5-5.0); Calcium 9.6 mg/dL (8.4-10.2); Potassium 4.7 mmol/L (3.5-5.1); Total Bilirubin 0.8 mg/dL (0.2-1.3); Total Protein 7.1 g/dL (6.3-8.2)
[2018-06-13] MEDS ORDERED: HYDROmorphone 0.5 MG/0.5 ML SYRINGE IVP STA (19:05)
[2018-06-13 19:43] LABS: Appearance,Urine Clear (Clear); Bilirubin,Urine Negative (Negative); Blood,Urine Negative (Negative); Color,Urine Light Yellow; Glucose,Urine (UA) Negative (Negative); Ketones,Urine Negative (Negative); Leukocyte Esterase,Urine Negative (Negative); Nitrite,Urine Negative (Negative); Protein,Urine Negative (Negative); Specific Gravity,Urine 1.009 (1.001-1.035); Urobilinogen,Urine <2.0 mg/dL (<2.0)
--- NOTE | 2018-06-13 21:04 | CT ---
EXAMINATION TYPE: CT abdomen pelvis wo con DATE OF EXAM: 06/13/2018 COMPARISON: HISTORY: Right flank pain, hx of kidney stones CT DLP: 1939.1 mGycm Automated exposure control for dose reduction was used. TECHNIQUE: Helical acquisition of images was performed from the lung bases through the pelvis. FINDINGS: KIDNEYS, URETERS, BLADDER: There are no calcifications within the kidneys or ureters or bladder. Ther e is no hydronephrosis or hydroureter. No focal findings. LUNG BASES: No significant abnormality is appreciated. Prominent left and right coronary calcificatio ns noted. LIVER/GB: No significant abnormality is appreciated. PANCREAS: No significant abnormality is seen. SPLEEN: No significant abnormality is seen. ADRENALS: No significant abnormality is seen. FREE AIR: No free air is visualized ADENOPATHY: None visualized REPRODUCTIVE ORGANS: No significant abnormality is seen URINARY BLADDER: No significant abnormality is seen. PELVIC ADENOPATHY: None visualized. OSSEOUS STRUCTURES: No significant abnormality is seen. BOWEL: No significant abnormality is seen. IMPRESSION: 1. NO ACUTE PROCESS. 2. Coronary calcifications noted.
--- NOTE | 2018-06-13 22:08 | US ---
EXAMINATION TYPE: US abdomen limited DATE OF EXAM: 06/13/2018 COMPARISON: NONE CLINICAL HISTORY: Pain. Pain RLQ EXAM MEASUREMENTS: Liver Length: 19.8 cm Gallbladder Wall: 0.27 cm CBD: 0.75 cm Right Kidney: 10.6 x 5.3 x 4.2 cm Pancreas: Obscured by bowel gas Liver: Increased attenuation Gallbladder: No stones seen Evidence for sonographic Gifford's sign: No CBD: upper limits Right Kidney: No hydronephrosis or masses seen IMPRESSION: Gallbladder is mildly dilated and measures 4.6 cm. There is could relate to gallbladder d ysfunction. Intrahepatic bile ducts are not dilated.
[2018-06-13 22:55] VITALS: BP 140/70; PULSE 78; RESP 20; TEMP 98.5
== END 2018-06-13 22:55 | disposition home or self-care (01) ==
LOC: EC 16:31
DX: R10.9 Unspecified abdominal pain (principal); M54.5 Low back pain; K82.8 Other specified diseases of gallbladder; E11.9 Type 2 diabetes mellitus without complications; E78.5 Hyperlipidemia, unspecified; I10 Essential (primary) hypertension; I25.2 Old myocardial infarction; Z87.442 Personal history of urinary calculi; Z79.82 Long term (current) use of aspirin; Z79.84 Long term (current) use of oral hypoglycemic drugs; Z79.899 Other long term (current) drug therapy; Z91.018 Allergy to other foods; Z95.818 Presence of other cardiac implants and grafts; Z95.1 Presence of aortocoronary bypass graft
CPT/HCPCS: 36415; 80053; 82150; 83690; 85025; 81003; 74018; 76705; 74176; 99284; 96374; 96375 ×3; 96361; J2270; J2405; J1885; J1170

== ENCOUNTER 2019-11-18 07:09 | Day surgery (SDC) | payer MEDICARE, OTHER ==
[~2019-11-18 07:09] MED LIST: LACTATED RINGERS 1,000 ML IV SCH; LIDOCAINE 1% 20 ML VIAL (10MG/ML) FOR IV START INTRADERMA PRN
[2019-11-18 08:02] VITALS: RESP 16; TEMP 97.7
[2019-11-18] MEDS ORDERED: PROPOFOL 10 MG/ML 20 ML VIAL IV ONE (08:05)
[2019-11-18 08:17] LABS: Glucose,Whole Blood 93 mg/dL (75-99)
--- NOTE | 2019-11-18 08:26 | P.PCN ---
Date of Procedure: 11/18/19 Description of Procedure: BRIEF HISTORY: Patient is a 74-year-old pleasant male scheduled for an elective colonoscopy as a part of personal history of colon polyps. Last colonoscopy in 2014 per his recollection with polypectomy performed. No change in bowel reported. He has seen some small amounts of blood per rectum. No family history of colon cancer. PROCEDURE PERFORMED: Colonoscopy. PREOPERATIVE DIAGNOSIS: Personal history of colon polyps, last colonoscopy 2014. ESTIMATED BLOOD LOSS: Minimal. IV sedation per Anesthesia. PROCEDURE: After informed consent was obtained, the patient, was brought into the endoscopy unit. IV sedation was administered by Anesthesia under continuous monitoring. Digital rectal examination was normal. Initially the Olympus CF-190 flexible video colonoscope was then inserted in the rectum, gradually advanced into the cecum without any difficulty. Careful examination was performed as the scope was gradually being withdrawn. Ileocecal valve and the appendiceal orifice were visualized and appeared normal. Prep was good. Mucosa of the cecum, ascending colon, transverse colon, descending colon, sigmoid colon, and rectum appeared normal. A few scattered diverticula noted in the sigmoid colon. Retroflexion was performed in the rectum and no lesions were seen, low-grade internal hemorrhoids. The patient tolerated the procedure well. IMPRESSION: Normal-appearing colon from rectum to cecum. Mild sigmoid diverticulosis. RECOMMENDATIONS: Findings of this examination were discussed with the patient and his . Okay to resume diet. Okay to resume medications. Would recommend repeat colonoscopy in 5 years for personal history of colon polyps.
[2019-11-18 08:41] VITALS: BP 127/80; PULSE 64
== END 2019-11-18 09:00 | disposition home or self-care (01) ==
LOC: ORWHC2ENDO 07:09
PROVIDERS: ATTEND Internal Medicine
DX: Z12.11 Encounter for screening for malignant neoplasm of colon (principal); K57.30 Diverticulosis of large intestine without perforation or abscess without bleeding; Z86.010 Personal history of colon polyps; I25.10 Atherosclerotic heart disease of native coronary artery without angina pectoris; I10 Essential (primary) hypertension; E78.5 Hyperlipidemia, unspecified; E11.9 Type 2 diabetes mellitus without complications; K21.9 Gastro-esophageal reflux disease without esophagitis; Z79.84 Long term (current) use of oral hypoglycemic drugs; Z79.82 Long term (current) use of aspirin; Z79.899 Other long term (current) drug therapy; Z95.1 Presence of aortocoronary bypass graft; Z96.653 Presence of artificial knee joint, bilateral; Z91.018 Allergy to other foods
CPT/HCPCS: J2704; G0105

== ENCOUNTER → 2020-06-03 | Outpatient (CLI) | payer MEDICARE, OTHER ==
--- NOTE | 2020-06-03 09:55 | CT ---
EXAMINATION TYPE: CT abdomen pelvis wo con DATE OF EXAM: 06/03/2020 COMPARISON: 06/13/2018 HISTORY: Calculus of kidney, right flank pain CT DLP: 2160.1 mGycm Automated exposure control for dose reduction was used. TECHNIQUE: Helical acquisition of images was performed from the lung bases through the pelvis. FINDINGS: LUNG BASES: Groundglass changes most typical of atelectasis heart is enlarged and there is coronary a rtery calcification. LIVER/GB: No significant abnormality is appreciated. PANCREAS: No significant abnormality is seen. SPLEEN: No significant abnormality is seen. ADRENALS: No significant abnormality is seen. KIDNEYS: No hydronephrosis or nephrolithiasis. Nonspecific perinephric stranding. URINARY BLADDER: No significant abnormality is seen. ADENOPATHY: None visualized. OSSEOUS STRUCTURES: Hypertrophic and degenerative changes of the spine. Multilevel facet arthropathy with grade 1 anterolisthesis L4 relative to L5. Chronic deformity of the right iliac bone could be r elated to previous trauma. Small osteochondroma in the differential diagnosis. BOWEL: There is a moderate-sized hiatal hernia. OTHER: Fat-containing bilateral inguinal hernias. Atherosclerotic change of the aorta but no evidence of aneurysm. Tiny fat-containing periumbilical hernia. Calcifications in the soft tissue the right gluteal region likely related to granuloma. IMPRESSION: 1. No evidence of hydronephrosis or nephrolithiasis. Nonspecific. Nonspecific perinephric stranding c an occasionally be associated with infectious etiology correlate with urinalysis. 2. Coronary artery calcification. 3. Moderate-sized hiatal hernia. 4. Chronic deformity of the right iliac crest could been the basis of remote trauma or hyperostosis. Small osteochondroma not excluded.
== END | disposition home or self-care (01) ==
LOC: RADCTMAIN 08:59
PROVIDERS: ATTEND Nurse Practitioner Acute Care
DX: K44.9 Diaphragmatic hernia without obstruction or gangrene (principal); M95.5 Acquired deformity of pelvis
CPT/HCPCS: 74176

== ENCOUNTER → 2020-08-28 | Outpatient (CLI) | payer OTHER ==
--- NOTE | 2020-08-28 09:30 | US ---
EXAMINATION TYPE: US kidneys/renal and bladder DATE OF EXAM: 08/28/2020 COMPARISON: CT 06/03/2020 CLINICAL HISTORY: N18.3 CKD. EXAM MEASUREMENTS: Right Kidney: 12.5 x 6.1 x 5.5 cm Left Kidney: 12.9 x 5.6 x 5.8 cm Right Kidney: No hydronephrosis or masses seen Left Kidney: No hydronephrosis or masses seen Bladder: wnl Bilateral Jets seen: No No obstructing renal stones identified. IMPRESSION: 1. Normal renal ultrasound
== END | disposition home or self-care (01) ==
LOC: RADUSWWP 07:31
PROVIDERS: ATTEND Internal Medicine Nephrology
DX: N18.3 Chronic kidney disease, stage 3 (moderate) (principal)
CPT/HCPCS: 76770

== ENCOUNTER 2021-06-18 11:18 | Emergency (ER) | payer OTHER ==
[2021-06-18 11:42] VITALS: TEMP 98.4
--- NOTE | 2021-06-18 12:15 | ED ---
Skin/Abscess/FB HPI - General Chief complaint: Skin/Abscess/Foreign Body Stated complaint: toe infection Source: patient, RN notes reviewed Mode of arrival: ambulatory Limitations: physical limitation - History of Present Illness Initial comments: 76-year-old white male alert and oriented 4, presents to the emergency room with left second toe pain and redness. Patient states that he opened a door over his foot 3 weeks ago and avulsed the toenail. Patient states that over the past 3 weeks the toe has become increasingly red and swollen and now the foot is swollen. He states that he normally uses compression socks but related to the toe injury has not been wearing them. He denies any fevers. He states he went to [facility] and they told him to come to the emergency room for evaluation. Patient denies any fevers, nausea vomiting or diarrhea. He is able to ambulate without difficulty. He states he has been working but is planning on going on vacation and wants to make sure that it's okay before he leaves. MD complaint: other (Nail avulsion to the second digit of his left foot 3 weeks ago. Increased redness to the toe and foot.) -: week(s) (3) Tetanus Up to Date: unsure Location: L foot Quality: aching Consistency: constant Improves with: none Worsens with: palpation Context: other (Social history of 3 weeks ago nail avulsion) Associated symptoms: denies other symptoms Treatments Prior to Arrival: bandages - Related Data Home Medications Medication Instructions Recorded Confirmed Acetaminophen [Tylenol] 500 mg PO BID 06/28/17 11/18/19 Aspirin EC [Ecotrin] 325 mg PO DAILY 06/28/17 11/18/19 Atorvastatin [Lipitor] 40 mg PO HS 06/28/17 11/18/19 Glimepiride [Amaryl] 1 mg PO QAM 06/28/17 11/18/19 Metoprolol Tartrate [Lopressor] 50 mg PO BID 06/28/17 11/18/19 Multivitamins, Thera [Multivitamin 1 tab PO DAILY 06/28/17 11/18/19 (formulary)] Omega3/Dha/Epa/Fish Oil/Vit D3 1 cap PO BID 06/28/17 11/18/19 [Fish Oil-Vit D3 Softgel] Pantoprazole Sodium 40 mg PO QAM 06/28/17 11/18/19 allopurinoL [Zyloprim] 300 mg PO QAM 06/28/17 11/18/19 gemfibroziL [Lopid] 600 mg PO AC-BID 06/28/17 11/18/19 Pioglitazone [Actos] 30 mg PO QAM 11/11/19 11/18/19 lisinopriL 20 mg PO QAM 11/11/19 11/18/19 Furosemide [Lasix] 120 mg PO DAILY 11/12/19 11/18/19 Previous Rx's Medication Instructions Recorded Cephalexin [Keflex] 500 mg PO Q6HR 7 Days #28 cap 06/18/21 Sulfamethox-Tmp 800-160Mg [Bactrim 1 each PO Q12HR 7 Days #14 tab 06/18/21 Ds] Allergies Allergy/AdvReac Type Severity Reaction Status Date / Time hazelnut Allergy Anaphylaxis Verified 06/18/21 11:42 Review of Systems ROS Statement: Those systems with pertinent positive or pertinent negative responses have been documented in the HPI. ROS Other: All systems not noted in ROS Statement are negative. Past Medical History Past Medical History: Diabetes Mellitus, Hyperlipidemia, Hypertension, Myocardial Infarction ([place]) Additional Past Medical History / Comment(s): GOUT. HX: CELLULITIS POST RIGHT KNEE SCOPE (STREP). MRSA OF RIGHT BIG TOE. Coronary artery disease with previous CABG 3 vessel, myocardial infarction, kidney stones History of Any Multi-Drug Resistant Organisms: MRSA Date of last positivie culture/infection: 05/09/10 MDRO Source:: RIGHT BIG TOE. Past Surgical History: Coronary Bypass/CABG, Heart Catheterization, Orthopedic Surgery, Tonsillectomy Additional Past Surgical History / Comment(s): BILATERAL KNEE REPLACEMENT. Past Anesthesia/Blood Transfusion Reactions: No Reported Reaction Past Psychological History: No Psychological Hx Reported Smoking Status: Never smoker Past Alcohol Use History: None Reported Past Drug Use History: None Reported General Exam Limitations: physical limitation General appearance: alert, in no apparent distress Head exam: Present: atraumatic, normocephalic, normal inspection Eye exam: Present: normal appearance, PERRL, EOMI. Absent: scleral icterus, conjunctival injection, periorbital swelling ENT exam: Present: normal exam, normal oropharynx, mucous membranes moist Neck exam: Present: normal inspection, full ROM. Absent: tenderness, meningismus, lymphadenopathy, thyromegaly Respiratory exam: Present: normal lung sounds bilaterally. Absent: respiratory distress, wheezes, rales, rhonchi, stridor Cardiovascular Exam: Present: regular rate, normal rhythm, normal heart sounds. Absent: systolic murmur, diastolic murmur, rubs, gallop, clicks GI/Abdominal exam: Present: soft, normal bowel sounds. Absent: distended, tenderness, guarding, rebound, rigid Left Foot/Toe exam: Present: tenderness, swelling, erythema (Erythema extending from the second toe to the top of the foot), nail avulsion. Absent: ecchymosis, deformity, calcaneal tenderness Neurovascular tendon exam: Present: no vascular compromise. Absent: pulse deficit, extremity cold to touch, pallor, foot drop Gait: observed and normal Back exam: Present: full ROM. Absent: tenderness, CVA tenderness (R), CVA tenderness (L), muscle spasm, paraspinal tenderness, vertebral tenderness, rash noted Neurological exam: Present: alert, oriented X3, CN II-XII intact Psychiatric exam: Present: normal affect, normal mood Skin exam: Present: warm, dry, intact, normal color. Absent: rash, cyanosis, diaphoretic, erythema, petechiae, pallor, mottled Course Vital Signs 06/18/21 06/18/21 11:38 12:58 Temperature 98.4 F Pulse Rate 64 65 Respiratory 18 22 Rate Blood Pressure 110/63 122/67 O2 Sat by Pulse 99 96 Oximetry Medical Decision Making - Medical Decision Making X-ray of the left foot shows no suspicious abnormality or osteomyelitis to the distal second digit. There is superficial soft tissue swelling. Patient will be treated for cellulitis with Bactrim and Keflex. Case was discussed with Dr. Archer was agreeable to this plan of care. Patient was given strict return parameters for any increasing redness or pain, fevers or discoloration of the toe. Patient given a postop shoe to wear. Disposition Clinical Impression: Cellulitis Disposition: HOME SELF-CARE Condition: Fair Instructions (If sedation given, give patient instructions): Cellulitis (ED) Additional Instructions: Take medication as prescribed. Follow-up with the primary care doctor within 1 week. Return if any worsening signs and symptoms of infection including increased swelling and redness, drainage or fevers. Prescriptions: Sulfamethox-Tmp 800-160Mg [Bactrim Ds] 1 each PO Q12HR 7 Days #14 tab Cephalexin [Keflex] 500 mg PO Q6HR 7 Days #28 cap Is patient prescribed a controlled substance at d/c from ED?: No Referrals: [facility],Clinic [Primary Care Provider] - 1-2 days Time of Disposition: 13:12
[2021-06-18] MEDS: DIPH,PERTUS(ACELL)TETVAC-LF 0.5 ML VIAL IM ONE (12:20)
--- NOTE | 2021-06-18 12:40 | XR ---
EXAMINATION TYPE: XR foot complete LT DATE OF EXAM: 06/18/2021 COMPARISON: None HISTORY: Second distal digit nonhealing wound TECHNIQUE: 3 view left foot FINDINGS: A small amount soft tissue abnormalities at the tip of the second digit. The underlying oss eous structures appear intact. There is some soft tissue swelling over the second digit Varus deformity of the distal fifth digit is present. Degenerative joint changes are present notably the distal interphalangeal joint spaces and the first tarsal metatarsal junction small plantar and Ac hilles tendon calcaneal heel spurs are present. Diffuse soft tissue swelling is present. IMPRESSION: 1. No suspicious abnormality to suggest acute osteomyelitis distal second digit 2. Superficial soft tissue swelling and soft tissue abnormality of the distal second digit. 3. Degenerative joint changes. 4. Calcaneal heel spurs.
[2021-06-18 12:58] VITALS: BP 122/67; PULSE 65; RESP 22
== END 2021-06-18 13:24 | disposition home or self-care (01) ==
LOC: EC 11:18
DX: L03.032 Cellulitis of left toe (principal); Z23 Encounter for immunization; E11.9 Type 2 diabetes mellitus without complications; I10 Essential (primary) hypertension; E78.5 Hyperlipidemia, unspecified; I25.10 Atherosclerotic heart disease of native coronary artery without angina pectoris; I25.2 Old myocardial infarction; Z79.84 Long term (current) use of oral hypoglycemic drugs; Z79.82 Long term (current) use of aspirin
CPT/HCPCS: 90471; 90715; 99283

== ENCOUNTER 2021-07-13 14:59 | Inpatient (IN) | payer OTHER, MEDICARE ==
[2021-07-13] MEDS ORDERED: VANCOMYCIN IV PER PHARMACY 1 EACH MISC MISCELLANE PRN ×2 (16:06→19:53)
[2021-07-13] MEDS ORDERED: AMPICILLIN-SULBACTAM 3 GM in SODIUM CHLORIDE 0.9% 100 ML IVPB STA (16:06)
[2021-07-13] MEDS ORDERED: VANCOMYCIN 2,000 MG in SODIUM CHLORIDE 0.9% 500 ML 500 ML IVPB STA (16:12)
--- NOTE | 2021-07-13 16:25 | XR ---
EXAMINATION TYPE: XR foot complete LT DATE OF EXAM: 07/13/2021 CLINICAL HISTORY: pain TECHNIQUE: Frontal, lateral and oblique images of the left foot are obtained. COMPARISON: None. FINDINGS: Bony destructive process involving the distal phalanx of the left second toe compatible wit h osteomyelitis. Overlying soft tissue swelling. No additional bony destructive process is seen. No e vidence for fracture or dislocation. IMPRESSION: Osteomyelitis involving the distal phalanx of the left second toe.
[2021-07-13 16:41] LABS: Basophils # (A) 0.1 k/uL (0-0.2); Basophils % (A) 1 %; Eosinophils # (A) 0.3 k/uL (0-0.7); Eosinophils % (A) 4 %; HCT 40.8 % (39.0-53.0); HGB 14.1 gm/dL (13.0-17.5); Lymphocytes # (A) 2.2 k/uL (1.0-4.8); Lymphocytes % (A) 29 %; MCH 31.7 pg (25.0-35.0); MCHC 34.7 g/dL (31.0-37.0); MCV 91.6 fL (80.0-100.0); Mean Platelet Volume 7.6; Monocytes # (A) 0.7 k/uL (0-1.0); Monocytes % (A) 9 %; Neutrophils # (A) 4.2 k/uL (1.3-7.7); Neutrophils % (A) 54 %; Platelet Count 175 k/uL (150-450); RBC 4.46 m/uL (4.30-5.90); RDW 14.9 % (11.5-15.5); WBC 7.7 k/uL (3.8-10.6)
[2021-07-13 16:49] LABS: Albumin 4.3 g/dL (3.5-5.0); Calcium 9.2 mg/dL (8.4-10.2); Potassium 4.9 mmol/L (3.5-5.1); Total Bilirubin 1.2 mg/dL (0.2-1.3); Total Protein 6.8 g/dL (6.3-8.2)
[2021-07-13] MEDS ORDERED: NALOXONE 0.4 MG/ML 1 ML VIAL IV PRN (17:28)
--- NOTE | 2021-07-13 17:28 | ED ---
Extremity Problem HPI - General Chief complaint: Extremity Problem,Nontraumatic Stated complaint: L Toe Infection Time Seen by Provider: 07/13/21 15:00 Source: patient Mode of arrival: ambulatory Limitations: no limitations - History of Present Illness Initial comments: Patient is a 76-year-old male with past history of udt-[id number]-[id number] diabetes, hypertension who presents emergency Department with reported osteomyelitis of his left second toe. Patient was seen in our emergency department on June 18. At that time he states that 3 weeks prior he sustained an injury to his left second toe. He came into the emergency department and was placed on Keflex and Bactrim for possible cellulitis. He states he followed up with his primary care doctor after he finished the course of the antibiotics and was placed on a second course. He cannot room number the name of the antibiotic. He has had continued pain, swelling and redness. The ulceration to the tip of his toe has gotten larger in size. He went to the [place] clinic today and an x-ray was repeated. He was found have osteomyelitis the second digit. They did place him back on Bactrim. He states he took the first dose. He was instructed to come in to the emergency room for further treatment. He does have a history of non insulin dependant diabetes - last HbA1c was 5.8. He denies any fevers or chills. No numbness, tingling, weakness or pain in his foot. No nausea or vomiting. No other alleviating, precipitating or modifying factors - Related Data Home Medications Medication Instructions Recorded Confirmed Atorvastatin [Lipitor] 40 mg PO HS 06/28/17 07/13/21 Glimepiride [Amaryl] 1 mg PO DAILY 06/28/17 07/13/21 Multivitamins, Thera [Multivitamin 1 tab PO DAILY 06/28/17 07/13/21 (formulary)] Pantoprazole Sodium 40 mg PO DAILY 06/28/17 07/13/21 allopurinoL [Zyloprim] 300 mg PO DAILY 06/28/17 07/13/21 Pioglitazone [Actos] 30 mg PO DAILY 11/11/19 07/13/21 lisinopriL 20 mg PO DAILY 11/11/19 07/13/21 Furosemide [Lasix] 80 mg PO DAILY 11/12/19 07/13/21 Aspirin EC [Ecotrin Low Dose] 81 mg PO DAILY 07/13/21 07/13/21 Empagliflozin [Jardiance] 10 mg PO DAILY 07/13/21 07/13/21 Ergocalciferol [Vitamin D2 (1250 1,250 mcg PO Q30D 07/13/21 07/13/21 Mcg = 92761 Iu)] Ezetimibe [Zetia] 10 mg PO DAILY 07/13/21 07/13/21 Metoprolol Tartrate [Lopressor] 25 mg PO BID 07/13/21 07/13/21 Nitroglycerin Sl Tabs [Nitrostat] 0.4 mg SL Q5M PRN 07/13/21 07/13/21 [place]-3 Fatty Acids/Fish Oil [Fish 2 cap PO DAILY 07/13/21 07/13/21 Oil 1,000 mg Softgel] Sulfamethox-Tmp 800-160Mg [Bactrim 1 tab PO Q12H 07/13/21 07/13/21 Ds] Allergies Allergy/AdvReac Type Severity Reaction Status Date / Time hazelnut Allergy Anaphylaxis Verified 07/15/21 13:52 Review of Systems ROS Statement: Those systems with pertinent positive or pertinent negative responses have been documented in the HPI. ROS Other: All systems not noted in ROS Statement are negative. Past Medical History Past Medical History: Diabetes Mellitus, Hyperlipidemia, Hypertension, Myocardial Infarction ([place]) Additional Past Medical History / Comment(s): GOUT. HX: CELLULITIS POST RIGHT KNEE SCOPE (STREP). MRSA OF RIGHT BIG TOE. Coronary artery disease with previous CABG 3 vessel, myocardial infarction, kidney stones History of Any Multi-Drug Resistant Organisms: MRSA Date of last positivie culture/infection: 05/09/10 MDRO Source:: RIGHT BIG TOE. Past Surgical History: Coronary Bypass/CABG, Heart Catheterization, Orthopedic Surgery, Tonsillectomy Additional Past Surgical History / Comment(s): BILATERAL KNEE REPLACEMENT. Past Anesthesia/Blood Transfusion Reactions: No Reported Reaction Past Psychological History: No Psychological Hx Reported Smoking Status: Never smoker Past Alcohol Use History: None Reported Past Drug Use History: None Reported - Past Family History Mother Family Medical History: Coronary Artery Disease (CAD), Diabetes Mellitus Father Family Medical History: Coronary Artery Disease (CAD), Diabetes Mellitus General Exam Limitations: no limitations General appearance: alert, in no apparent distress Head exam: Present: atraumatic, normocephalic, normal inspection Eye exam: Present: normal appearance, PERRL, EOMI. Absent: scleral icterus, conjunctival injection, periorbital swelling ENT exam: Present: normal exam, mucous membranes moist Neck exam: Present: normal inspection. Absent: tenderness, meningismus, lymphadenopathy Respiratory exam: Present: normal lung sounds bilaterally. Absent: respiratory distress, wheezes, rales, rhonchi, stridor Cardiovascular Exam: Present: regular rate, normal rhythm, normal heart sounds. Absent: systolic murmur, diastolic murmur, rubs, gallop, clicks GI/Abdominal exam: Present: soft, normal bowel sounds. Absent: distended, tenderness, guarding, rebound, rigid Extremities exam: Present: tenderness (left second toe has distal ulceration, surrounding erythema. Toenail absent. Digits 1, 3-5 appear normal on the left. 2+ DP and PT pulses.), normal capillary refill. Absent: pedal edema, joint s welling, calf tenderness Back exam: Present: normal inspection Neurological exam: Present: alert, oriented X3, CN II-XII intact Psychiatric exam: Present: normal affect, normal mood Skin exam: Present: warm, dry, intact, normal color. Absent: rash Course Vital Signs 07/13/21 07/13/21 07/13/21 15:00 18:47 19:00 Temperature 97.6 F 98.2 F Pulse Rate 73 50 L Pulse Rate [ Sitting] Respiratory 19 18 18 Rate Blood Pressure 173/83 135/72 135/72 Blood Pressure [Left Radial Artery] O2 Sat by Pulse 97 99 98 Oximetry 07/13/21 07/14/21 07/14/21 22:33 07:11 11:34 Temperature 98.5 F Pulse Rate 68 51 L Pulse Rate [ Sitting] Respiratory 18 19 20 Rate Blood Pressure 122/74 125/66 Blood Pressure [Left Radial Artery] O2 Sat by Pulse 94 L 97 Oximetry 07/14/21 07/14/21 12:09 19:15 Temperature 97.8 F 98.2 F Pulse Rate 53 L Pulse Rate [ 51 L Sitting] Respiratory 17 18 Rate Blood Pressure 95/69 Blood Pressure 122/62 [Left Radial Artery] O2 Sat by Pulse 99 98 Oximetry Medical Decision Making - Medical Decision Making Upon arrival patient's placed into room 17. A thorough history and physical exam is performed. IV is established laboratory studies were conducted. Review the patient's labs demonstrate that his creatinine is 1.9. This is likely due to the Bactrim that the patient has been on. X-ray was repeated as we do not have the imaging from the [place] clinic. He does demonstrate osteo-myelitis involving the distal phalanx of the left second toe. Blood cultures are obtained and the patient is started on Unasyn and Vanco. I did speak with Desire from [facility] [place] who agreed to admit the patient. I will place wound care, infectious disease and vascular on consult. The patient agreed to the treatment plan and he is currently awaiting a bed on the floor - Lab Data Result diagrams: 07/17/21 06:56 07/17/21 06:56 Lab Results 07/13/21 07/13/21 07/13/21 Range/Units 16:19 16:19 16:19 WBC 7.7 (3.8-10.6) k/uL RBC 4.46 (4.30-5.90) m/uL Hgb 14.1 (13.0-17.5) gm/dL Hct 40.8 (39.0-53.0) % MCV 91.6 (80.0-100.0) fL MCH 31.7 (25.0-35.0) pg MCHC 34.7 (31.0-37.0) g/dL RDW 14.9 (11.5-15.5) % Plt Count 175 (150-450) k/uL MPV 7.6 Neutrophils % 54 % Lymphocytes % 29 % Monocytes % 9 % Eosinophils % 4 % Basophils % 1 % Neutrophils # 4.2 (1.3-7.7) k/uL Lymphocytes # 2.2 (1.0-4.8) k/uL Monocytes # 0.7 (0-1.0) k/uL Eosinophils # 0.3 (0-0.7) k/uL Basophils # 0.1 (0-0.2) k/uL Sodium 139 (137-145) mmol/L Potassium 4.9 (3.5-5.1) mmol/L Chloride 105 (98-107) mmol/L Carbon Dioxide 26 (22-30) mmol/L Anion Gap 8 mmol/L BUN 44 H (9-20) mg/dL Creatinine 1.92 H (0.66-1.25) mg/dL Est GFR (CKD-EPI)AfAm 39 (>60 ml/min/1.73 sqM) Est GFR (CKD-EPI)NonAf 34 (>60 ml/min/1.73 sqM) Glucose 104 H (74-99) mg/dL Plasma Lactic Acid Hugh 1.5 (0.7-2.0) mmol/L Calcium 9.2 (8.4-10.2) mg/dL Total Bilirubin 1.2 (0.2-1.3) mg/dL AST 59 (17-59) U/L ALT 49 (4-49) U/L Alkaline Phosphatase 123 (38-126) U/L Total Protein 6.8 (6.3-8.2) g/dL Albumin 4.3 (3.5-5.0) g/dL Disposition Clinical Impression: Osteomyelitis, CHE (acute kidney injury) Disposition: ADMITTED IP TO [facility] Condition: Stable Is patient prescribed a controlled substance at d/c from ED?: No Decision to Admit Reason: Admit from EC Decision Date: 07/13/21 Decision Time: 17:28
[2021-07-13] MEDS ORDERED: NITROGLYCERIN SL TABS 0.4 MG TAB SUBLINGUAL PRN (19:55)
--- NOTE | 2021-07-13 20:33 | HP ---
HISTORY AND PHYSICAL DATE OF SERVICE: 07/13/2021 CHIEF COMPLAINTS: Nonhealing ulcer and possible osteomyelitis of the second toe, left foot. HISTORY OF PRESENT ILLNESS: This 76-year-old gentleman with a past medical history of multiple medical problems, including diabetes mellitus, hypertension, hyperlipidemia, history of myocardial infarction, gout, being followed by Dr. Marco Rivera in the [facility], had an injury on the left foot. The patient hit the foot against the door about 3 months ago and the patient is on antibiotics because of lack of improvement, the patient came to [facility] and was admitted for evaluation and treatment. The creatinine was elevated up to 1.92, indicating acute renal failure. There is no history of any fever, rigors or chills. No history of headache, loss of consciousness, seizures at this time. PAST MEDICAL HISTORY: History of diabetes mellitus, hypertension, hyperlipidemia, history of myocardial infarction, history of gout. MEDICATIONS: Home medications are vitamin D3, Lipitor, lisinopril, zyloprim, Bactrim, Actos, Protonix, fish oil, Nitrostat, multivitamins, Lopressor, Amaryl, Lasix, Zetia. Doses are reviewed. ALLERGIES: HAZELNUTS. FAMILY HISTORY: No history of heart disease or strokes in the family. SOCIAL HISTORY: No history of smoking. No history of alcohol intake. REVIEW OF SYSTEMS: ENT: No diminished hearing. No diminished vision. CARDIOVASCULAR SYSTEM: No angina, palpitations. RESPIRATORY SYSTEM: No cough, hemoptysis. GI: As mentioned earlier. : No dysuria, retention. NERVOUS SYSTEM: No numbness, weakness. ALLERGY/IMMUNOLOGY: No asthma or hay fever. MUSCULOSKELETAL: As mentioned earlier. HEMATOLOGY/ONCOLOGY: No history of anemia. ENDOCRINE: No history of diabetes, hypothyroidism. CONSTITUTIONAL: As mentioned earlier. DERMATOLOGY: Negative. RHEUMATOLOGY: Negative. PSYCHIATRY: As mentioned earlier. PHYSICAL EXAMINATION: Patient is alert and oriented x3. Pulse 50, blood pressure is 135/72, respiration 18, temperature 98.2, pulse ox 99% on room air. HEENT: Conjunctivae normal. Oral mucosa moist. NECK: No jugular venous distention. No carotid bruit. No lymph node enlargement. CARDIOVASCULAR: S1, S2 muffled. No S3. No S4. RESPIRATION: Breath sounds diminished at the bases. No rhonchi. No crackles. ABDOMEN: Soft, obese, non-tender. No mass palpable. LEGS: Cold to touch. Ulcer on the second toe present. LYMPHATICS: No lymph node palpable in neck, axillae or groin. SKIN: No ulcer, rash, bleeding. JOINTS: No active deforming arthropathy. LABS: CBC within normal limits. Sodium potassium 4.2, creatinine is 1.92. ASSESSMENT: 1. Nonhealing ulcer of the second toe of the left foot, possibly osteomyelitis. 2. Rule out peripheral vascular disease. 3. Increased creatinine with acute renal failure, acute tubular necrosis. 4. Diabetes mellitus, type 2. 5. Hypertension. 6. Hyperlipidemia. 7. History of myocardial infarction. 8. Gout. 9. History of cellulitis. 10.History of coronary artery disease, coronary artery bypass grafting. 11.Cardiac catheterization. 12.Obesity with body mass index of 38.2. 13.FULL CODE. RECOMMENDATIONS AND DISCUSSION: In this 76-year-old gentleman who presented with multiple complex medical issues, we will monitor the patient closely, continue the current medications, continue symptomatic treatment. Will initiate broad-spectrum IV antibiotics. Vascular consultation. Wound care. Otherwise, Unasyn and vancomycin have been initiated. Bone scan will be ordered. Prognosis guarded because of multiple complex medical issues. Further recommendations to follow. A copy of this dictation is being forwarded to Dr. Rivera, who is the primary physician. MMJAYMEL / GWENN: [id number] / MTDD
[2021-07-13] MEDS: ATORVASTATIN 40 MG TAB PO SCH (22:32)
[2021-07-13] MEDS: METOPROLOL TARTRATE 25 MG TAB PO SCH (22:32)
[2021-07-13] MEDS: SODIUM CHLORIDE 0.9% 1,000 ML IV SCH (22:33)
[2021-07-13 23:32] LABS: Glucose,Whole Blood 168 mg/dL (75-99)
[2021-07-13] MEDS: INSULIN ASPART (NovoLOG) 100 UNIT/ML VIAL SQ SCH (23:41)
[2021-07-13] MEDS: HEPARIN SODIUM,PORCINE/PF 5,000 UNIT/0.5 ML SYRINGE SQ SCH (23:42)
[2021-07-14] MEDS: AMPICILLIN-SULBACTAM 3 GM in SODIUM CHLORIDE 0.9% 100 ML IVPB SCH ×4 (00:02→17:25)
[2021-07-14 04:17] LABS: Basophils # (A) 0.1 k/uL (0-0.2); Basophils % (A) 1 %; Eosinophils # (A) 0.5 k/uL (0-0.7); Eosinophils % (A) 6 %; HCT 42.8 % (39.0-53.0); HGB 13.9 gm/dL (13.0-17.5); Lymphocytes # (A) 1.9 k/uL (1.0-4.8); Lymphocytes % (A) 27 %; MCH 30.8 pg (25.0-35.0); MCHC 32.6 g/dL (31.0-37.0); MCV 94.5 fL (80.0-100.0); Mean Platelet Volume 8.1; Monocytes # (A) 0.6 k/uL (0-1.0); Monocytes % (A) 8 %; Neutrophils # (A) 3.9 k/uL (1.3-7.7); Neutrophils % (A) 55 %; Platelet Count 154 k/uL (150-450); RBC 4.53 m/uL (4.30-5.90); RDW 14.7 % (11.5-15.5); WBC 7.1 k/uL (3.8-10.6)
[2021-07-14 07:28] LABS: Glucose,Whole Blood 85 mg/dL (75-99)
[2021-07-14] MEDS: INSULIN ASPART (NovoLOG) 100 UNIT/ML VIAL SQ SCH ×4 (07:32→20:43)
[2021-07-14] MEDS: allopurinoL 300 MG TAB PO SCH (07:42)
[2021-07-14] MEDS: ASPIRIN 81 MG PO SCH (07:42)
[2021-07-14] MEDS: MULTIVITAMINS, THERA 1 EACH TAB PO SCH (07:42)
[2021-07-14] MEDS: METOPROLOL TARTRATE 25 MG TAB PO SCH ×2 (07:42→21:47)
[2021-07-14] MEDS: PANTOPRAZOLE 40 MG TABLET PO SCH (07:42)
[2021-07-14] MEDS: HEPARIN SODIUM,PORCINE/PF 5,000 UNIT/0.5 ML SYRINGE SQ SCH ×2 (07:42→21:47)
[2021-07-14] MEDS: Empagliflozin [Jardiance] PO SCH (07:46)
[2021-07-14] MEDS: PIOGLITAZONE 30 MG TAB PO SCH (08:26)
[2021-07-14] MEDS: GLIMEPIRIDE 1 MG TAB PO SCH (08:26)
[2021-07-14] MEDS: EZETIMIBE 10 MG TAB PO SCH (08:26)
[2021-07-14] MEDS: VANCOMYCIN 2,000 MG in SODIUM CHLORIDE 0.9% 500 ML 500 ML IVPB SCH (09:10)
[2021-07-14] MEDS: SODIUM CHLORIDE 0.9% 1,000 ML IV SCH ×2 (09:16→21:48)
[2021-07-14 10:25] LABS: Anion Gap 9.2 mmol/L (4.00-12.00); Calcium 8.8 mg/dL (8.7-10.3); Carbon Dioxide 27.8 mmol/L (21.6-31.8); Non-African American GFR(CKD) 31.9 (60.0-200.0); Potassium 4.6 mmol/L (3.5-5.5)
--- NOTE | 2021-07-14 10:47 | P.GSCN ---
History of Present Illness Consult date: 07/14/21 Reason for Consult: left 2nd toe osteomyelitis Requesting physician: Purvi Hansen History of present illness: This is a pleasant 76-year-old male who presented to the emergency department per recommendation of his PCP. The patient states he injured his left second toe in May by hitting it on a door which caused a small wound. The patient was seen at [facility] on 06/18/2021 for a left toe nonhealing wound and was told to come to the emergency department for further evaluation. He came to the emergency department on 06/18/2021 and was sent home on oral antibiotics of Bactrim and Keflex. He then again went and saw his PCP at the [place] and was given another antibiotic which he finished, but still having discomfort and throbbing in his toe. He again saw his PCP on Monday and they took x-rays and told him he had an infection in his toe and needed to go to the emergency department for further evaluation and treatment. He denies any drainage or foul odor from his toe. He does state that it throbs mostly at night. He denies any history of peripheral arterial disease, he does have a past medical history including diabetes mellitus, coronary artery disease status post CABG, hyperlipidemia, hypertension, and gout. X-ray on admission shows osteomyelitis involving the distal phalanx of the left second toe. He denies fevers or chills, he is been afebrile. He denies any shortness of breath, chest pain, abdominal pain, nausea, or vomiting. Review of Systems - Constitutional Constitutional Comment(s): A 14 point review of systems was completed all pertinent positives and negatives as stated in the HPI. Past Medical History Past Medical History: Diabetes Mellitus, Hyperlipidemia, Hypertension, Myocardial Infarction ([place]) Additional Past Medical History / Comment(s): GOUT. HX: CELLULITIS POST RIGHT KNEE SCOPE (STREP). MRSA OF RIGHT BIG TOE. Coronary artery disease with previous CABG 3 vessel, myocardial infarction, kidney stones History of Any Multi-Drug Resistant Organisms: MRSA Year Discovered:: 05/09/10 MDRO Source:: RIGHT BIG TOE. Past Surgical History: Coronary Bypass/CABG, Heart Catheterization, Orthopedic Surgery, Tonsillectomy Additional Past Surgical History / Comment(s): BILATERAL KNEE REPLACEMENT. Past Anesthesia/Blood Transfusion Reactions: No Reported Reaction Past Psychological History: No Psychological Hx Reported Smoking Status: Never smoker Past Alcohol Use History: None Reported Past Drug Use History: None Reported Medications and Allergies Home Medications Medication Instructions Recorded Confirmed Type Atorvastatin [Lipitor] 40 mg PO HS 06/28/17 07/13/21 History Glimepiride [Amaryl] 1 mg PO DAILY 06/28/17 07/13/21 History Multivitamins, Thera [Multivitamin 1 tab PO DAILY 06/28/17 07/13/21 History (formulary)] Pantoprazole Sodium 40 mg PO DAILY 06/28/17 07/13/21 History allopurinoL [Zyloprim] 300 mg PO DAILY 06/28/17 07/13/21 History Pioglitazone [Actos] 30 mg PO DAILY 11/11/19 07/13/21 History lisinopriL 20 mg PO DAILY 11/11/19 07/13/21 History Furosemide [Lasix] 80 mg PO DAILY 11/12/19 07/13/21 History Aspirin EC [Ecotrin Low Dose] 81 mg PO DAILY 07/13/21 07/13/21 History Empagliflozin [Jardiance] 10 mg PO DAILY 07/13/21 07/13/21 History Ergocalciferol [Vitamin D2 (1250 1,250 mcg PO Q30D 07/13/21 07/13/21 History Mcg = 99652 Iu)] Ezetimibe [Zetia] 10 mg PO DAILY 07/13/21 07/13/21 History Metoprolol Tartrate [Lopressor] 25 mg PO BID 07/13/21 07/13/21 History Nitroglycerin Sl Tabs [Nitrostat] 0.4 mg SL Q5M PRN 07/13/21 07/13/21 History [place]-3 Fatty Acids/Fish Oil [Fish 2 cap PO DAILY 07/13/21 07/13/21 History Oil 1,000 mg Softgel] Sulfamethox-Tmp 800-160Mg [Bactrim 1 tab PO Q12H 07/13/21 07/13/21 History Ds] Allergies Allergy/AdvReac Type Severity Reaction Status Date / Time hazelnut Allergy Anaphylaxis Verified 07/13/21 15:03 Surgical - Exam Vital Signs Temp Pulse Resp BP Pulse Ox 97.6 F 73 19 173/83 97 07/13/21 15:00 07/13/21 15:00 07/13/21 15:00 07/13/21 15:00 07/13/21 15:00 General appearance: The patient is alert, oriented, in no acute distress. HET: Head is normocephalic and atraumatic. . Neck: Supple without lymphadenopathy. Trachea midline. Heart: S1 S2. Regular rate and rhythm. Lungs: Clear to auscultation. Abdomen: Soft, nontender, nondistended. Extremities: Normal skin color and turgor. Left lower extremity +2 pitting edema, left foot second toe with wound on distal aspect, no drainage or odor noticed. Neurological: No focal deficits. Strength and sensation are grossly intact. Results - Labs 07/14/21 03:47 07/14/21 03:47 Abnormal Lab Results - Last 24 Hours (Table) 07/13/21 07/13/21 Range/Units 16:19 23:26 BUN 44 H (9-20) mg/dL Creatinine 1.92 H (0.66-1.25) mg/dL Glucose 104 H (74-99) mg/dL POC Glucose (mg/dL) 168 H (75-99) mg/dL Diabetes panel 07/13/21 Range/Units 16:19 Sodium 139 (137-145) mmol/L Potassium 4.9 (3.5-5.1) mmol/L Chloride 105 (98-107) mmol/L Carbon Dioxide 26 (22-30) mmol/L BUN 44 H (9-20) mg/dL Creatinine 1.92 H (0.66-1.25) mg/dL Glucose 104 H (74-99) mg/dL Calcium 9.2 (8.4-10.2) mg/dL AST 59 (17-59) U/L ALT 49 (4-49) U/L Alkaline Phosphatase 123 (38-126) U/L Total Protein 6.8 (6.3-8.2) g/dL Albumin 4.3 (3.5-5.0) g/dL Calcium panel 07/13/21 Range/Units 16:19 Calcium 9.2 (8.4-10.2) mg/dL Albumin 4.3 (3.5-5.0) g/dL Pituitary panel 07/13/21 Range/Units 16:19 Sodium 139 (137-145) mmol/L Potassium 4.9 (3.5-5.1) mmol/L Chloride 105 (98-107) mmol/L Carbon Dioxide 26 (22-30) mmol/L BUN 44 H (9-20) mg/dL Creatinine 1.92 H (0.66-1.25) mg/dL Glucose 104 H (74-99) mg/dL Calcium 9.2 (8.4-10.2) mg/dL Adrenal panel 07/13/21 Range/Units 16:19 Sodium 139 (137-145) mmol/L Potassium 4.9 (3.5-5.1) mmol/L Chloride 105 (98-107) mmol/L Carbon Dioxide 26 (22-30) mmol/L BUN 44 H (9-20) mg/dL Creatinine 1.92 H (0.66-1.25) mg/dL Glucose 104 H (74-99) mg/dL Calcium 9.2 (8.4-10.2) mg/dL Total Bilirubin 1.2 (0.2-1.3) mg/dL AST 59 (17-59) U/L ALT 49 (4-49) U/L Alkaline Phosphatase 123 (38-126) U/L Total Protein 6.8 (6.3-8.2) g/dL Albumin 4.3 (3.5-5.0) g/dL - Imaging Comments: X-ray left foot shows osteomyelitis involving the distal phalanx of the left second toe Assessment and Plan Assessment: 1. Nonhealing diabetic wound to left second toe 2. Osteomyelitis per x-ray involving distal phalanx of the left second toe 3. History of diabetes mellitus 4. History of coronary artery disease status post CABG 5. Hyperlipidemia 6. Hypertension Plan: 1. Nothing by mouth after midnight 2. Antibiotics per recommendations from infectious disease 3. Will schedule patient for debridement of the left second toe with deep tissue cultures 4. Lower extremity arterial duplex ordered Thank you for this consultation and allowing us take part in the plan of care of your patient during his hospital stay. The impression and plan of care has been dictated as directed. Dr. Javed I performed a history and examination of this patient, discussed the same with the dictator. I agree with the dictator's note ,documented as a scribe. Any additional findings or plans will be noted.
[2021-07-14 11:58] LABS: Glucose,Whole Blood 133 mg/dL (75-99)
--- NOTE | 2021-07-14 14:00 | NM ---
EXAMINATION TYPE: NM bone 3 phase DATE OF EXAM: 07/14/2021 COMPARISON: NONE HISTORY: Correlate for osteomyelitis Triple phase bone scintigraphy was performed following the injection of 22.1 mCi Tc 99m MDP. Immedia te images and 5 hours post injection images acquired. FINDINGS: Triple phase bone scintigraphy demonstrates increased radiotracer accumulation involving the left sec ond toe on all 3 phases of the examination compatible with osteomyelitis. IMPRESSION: Findings compatible with osteomyelitis involving the distal phalanx of the left second toe.
[2021-07-14] MEDS: ACETAMINOPHEN TAB 500 MG TAB PO PRN (14:15)
[2021-07-14] MEDS: LACTATED RINGERS 1,000 ML IV SCH (16:37)
[2021-07-14 17:22] LABS: Glucose,Whole Blood 111 mg/dL (75-99)
[2021-07-14 20:43] LABS: Glucose,Whole Blood 116 mg/dL (75-99)
--- NOTE | 2021-07-14 21:02 | PN ---
PROGRESS NOTE DATE OF SERVICE: 07/14/2021 This 76-year-old gentleman admitted with an ulcer of the second toe on the left foot has features of osteomyelitis. Vascular Surgery is planning debridement tomorrow. No chest pain. No palpitations. No fever. Patient on IV antibiotics. Cultures are pending at this time. PHYSICAL EXAMINATION: Alert, oriented x3. Pulse 51, blood pressure 122/62, respirations 17, temperature 97.8, pulse ox 99% on room air. HEENT: Conjunctivae normal. NECK: No jugular venous distention. CARDIOVASCULAR: S1, S2 muffled. RESPIRATION: Breath sounds diminished at the bases. ABDOMEN: Soft, non-tender. LEGS: Left leg second osteomyelitis present. NERVOUS SYSTEM: No focal deficit. LABS: Accu-Cheks 133, 111. ASSESSMENT: 1. Acute nonhealing ulcer of the second toe of the left foot, possible acute osteomyelitis. 2. Rule out peripheral vascular disease. 3. Increased creatinine with acute renal failure, acute tubular necrosis, present on admission. 4. Diabetes mellitus, type 2. 5. Hypertension. 6. Hyperlipidemia. 7. History of myocardial infarction. 8. Gout. 9. History of cellulitis. 10.History of coronary artery disease, coronary artery bypass grafting. 11.History of cardiac catheterization. 12.Obesity with body mass index of 38.8. 13.FULL CODE. RECOMMENDATIONS AND DISCUSSION: I recommend to continue current medications, continue with symptomatic treatment. Otherwise at this time continue with the IV antibiotics. The patient is on IV vancomycin. Await cultures. Repeat labs. Closely follow with Vascular Surgery and Infectious Disease. Prognosis guarded. Further recommendations to follow. MMODL / IJN: [id number] /
[2021-07-14] MEDS: ATORVASTATIN 40 MG TAB PO SCH (21:47)
[2021-07-15] MEDS: AMPICILLIN-SULBACTAM 3 GM in SODIUM CHLORIDE 0.9% 100 ML IVPB SCH ×5 (00:32→23:37)
[2021-07-15] MEDS ORDERED: ONDANSETRON 4 MG/2 ML VIAL IVP ONE (06:00)
[2021-07-15] MEDS ORDERED: DEXAMETHASONE SOD PHOSPHATE 4 MG/ML 1 ML VIAL IV ONE (06:00)
[2021-07-15 06:19] LABS: African American GFR (CKD) 58 (>60 ml/min/1.73 sqM); Anion Gap 7 mmol/L; Blood Urea Nitrogen 31 mg/dL (9-20); Calcium 8.9 mg/dL (8.4-10.2); Carbon Dioxide 25 mmol/L (22-30); Chloride 108 mmol/L (98-107); Glucose 114 mg/dL (74-99); Non-African American GFR(CKD) 51 (>60 ml/min/1.73 sqM); Potassium 4.8 mmol/L (3.5-5.1); Sodium 140 mmol/L (137-145)
[2021-07-15 06:30] LABS: Basophils # (A) 0.1 k/uL (0-0.2); Basophils % (A) 1 %; Eosinophils # (A) 0.4 k/uL (0-0.7); Eosinophils % (A) 6 %; HCT 38.5 % (39.0-53.0); Lymphocytes # (A) 1.5 k/uL (1.0-4.8); Lymphocytes % (A) 23 %; MCH 31.4 pg (25.0-35.0); MCHC 33.8 g/dL (31.0-37.0); MCV 92.9 fL (80.0-100.0); Mean Platelet Volume 7.8; Monocytes # (A) 0.5 k/uL (0-1.0); Monocytes % (A) 8 %; Neutrophils # (A) 3.9 k/uL (1.3-7.7); Neutrophils % (A) 59 %; Platelet Count 151 k/uL (150-450); RBC 4.14 m/uL (4.30-5.90); RDW 14.9 % (11.5-15.5); WBC 6.5 k/uL (3.8-10.6)
--- NOTE | 2021-07-15 06:41 | P.CONS ---
History of Present Illness - Reason for Consult Consult date: 07/14/21 left 2nd toe osteomyelitis Requesting physician: Vikki Gandara - Chief Complaint left 2nd toe wound and pain x weeks - History of Present Illness History of present illness : Patient is 76-year-old male who did have injury to his left second toe in May 2021 by hitting it on the door with a small wound which has not been healing for the last few weeks patient has been evaluated at [facility] ER on 06/18/2021 and the patient was sent home on Bactrim and Keflex patient was subsequently seen by his primary care physician and the patient was given a different antibiotic patient did not remember the name however the patient did have nonhealing of his left second toe with becoming more swollen and red patient has been complaining of dull aching to throbbing pain to his left second toe intensity is about 5-6 out of 10 had no radiation and the pain was mostly at night patient denies having any purulent drainage from the left second toe and denies high-grade fever with the symptom the patient presented back to the hospital yesterday patient on arrival to the ER was afebrile patient did have a normal white count creatinine was initially elevated to her repeat is 1.37 blood culture has been obtained which are currently pending patient did have a x-rays of the foot suggestive of osteomyelitis involving the distal phalanx of the left second toe bone scan has been done subsequently findings compatible with osteomyelitis involving the distal phalanx of the left second toe patient has been treated with the Unasyn and vancomycin infectious disease was consulted for further management of antibiotic therapy Review of system: CONSTITUTIONAL: Positive for weakness denies high-grade fever. EYES: No complaint. ENT: No complaint. RESPIRATORY: No complaint. CARDIOVASCULAR: No complaint. GENITOURINARY: No complaint. GASTROINTESTINAL: No complaint. MUSCULOSKELETAL: As per history of present illness. INTEGUMENTARY: No complaint. PSYCHOLOGIC: No complaint. ENDOCRINE: No complaint. NEUROLOGIC: No complaint. Past medical history : Reviewed, documented below Past surgical history : Reviewed, documented below Social history: Reviewed, documented below Medications: Reviewed, as documented below GENERAL DESCRIPTION: Elderly male lying in bed, no distress. No tachypnea or accessory muscle of respiration use. HEENT: Shows Pallor , no scleral icterus. Oral mucous membrane is dry. NECK: Trachea central, no thyromegaly. LUNGS: Unlabored breathing. Clear to auscultation anteriorly. No wheeze or crackle. HEART: S1, S2, regular rate and rhythm. ABDOMEN: Soft, no tenderness , guarding or rigidity EXTREMITIES: No edema of feet. Left second toe is swollen minimal redness with the wound on the tip of the toe with no hospital drainage SKIN: No rash, no masses palpable. NEUROLOGICAL: The patient is awake, alert, oriented x3, mood and affect normal. LABS AND RADIOLOGY: Reviewed results see below Assessment : Patient with the traumatic wound to the left second toe with secondary cellulitis that has failed to respond to the outpatient oral Bactrim and Keflex therapy with progression of his wound and now concerning for left second toe osteomyelitis Plan: 1-await surgical drainage/amputation of the distal phalanx per vascular surgery and deep culture 2-vancomycin pharmacy to dose her with a target trough of 15 while watching her kidney function and Vanco trough closely. 3-Unasyn 3 g every 6 hours We will follow on clinical condition and cultures to further adjust medication if needed Thank you for this consultation we will follow the patient along with you Past Medical History Past Medical History: Diabetes Mellitus, Hyperlipidemia, Hypertension, Myocardial Infarction ([place]) Additional Past Medical History / Comment(s): GOUT. HX: CELLULITIS POST RIGHT KNEE SCOPE (STREP). MRSA OF RIGHT BIG TOE. Coronary artery disease with previous CABG 3 vessel, myocardial infarction, kidney stones Last Myocardial Infarction Date:: 25 years ago History of Any Multi-Drug Resistant Organisms: MRSA Year Discovered:: 05/09/10 MDRO Source:: RIGHT BIG TOE. Past Surgical History: Coronary Bypass/CABG, Heart Catheterization, Orthopedic Surgery, Tonsillectomy Additional Past Surgical History / Comment(s): BILATERAL KNEE REPLACEMENT. Past Anesthesia/Blood Transfusion Reactions: No Reported Reaction Past Psychological History: No Psychological Hx Reported Smoking Status: Never smoker Past Alcohol Use History: None Reported Past Drug Use History: None Reported - Past Family History Mother Family Medical History: Coronary Artery Disease (CAD), Diabetes Mellitus Father Family Medical History: Coronary Artery Disease (CAD), Diabetes Mellitus Medications and Allergies Home Medications Medication Instructions Recorded Confirmed Type Atorvastatin [Lipitor] 40 mg PO HS 06/28/17 07/13/21 History Glimepiride [Amaryl] 1 mg PO DAILY 06/28/17 07/13/21 History Multivitamins, Thera [Multivitamin 1 tab PO DAILY 06/28/17 07/13/21 History (formulary)] Pantoprazole Sodium 40 mg PO DAILY 06/28/17 07/13/21 History allopurinoL [Zyloprim] 300 mg PO DAILY 06/28/17 07/13/21 History Pioglitazone [Actos] 30 mg PO DAILY 11/11/19 07/13/21 History lisinopriL 20 mg PO DAILY 11/11/19 07/13/21 History Furosemide [Lasix] 80 mg PO DAILY 11/12/19 07/13/21 History Aspirin EC [Ecotrin Low Dose] 81 mg PO DAILY 07/13/21 07/13/21 History Empagliflozin [Jardiance] 10 mg PO DAILY 07/13/21 07/13/21 History Ergocalciferol [Vitamin D2 (1250 1,250 mcg PO Q30D 07/13/21 07/13/21 History Mcg = 56940 Iu)] Ezetimibe [Zetia] 10 mg PO DAILY 07/13/21 07/13/21 History Metoprolol Tartrate [Lopressor] 25 mg PO BID 07/13/21 07/13/21 History Nitroglycerin Sl Tabs [Nitrostat] 0.4 mg SL Q5M PRN 07/13/21 07/13/21 History [place]-3 Fatty Acids/Fish Oil [Fish 2 cap PO DAILY 07/13/21 07/13/21 History Oil 1,000 mg Softgel] Sulfamethox-Tmp 800-160Mg [Bactrim 1 tab PO Q12H 07/13/21 07/13/21 History Ds] Allergies Allergy/AdvReac Type Severity Reaction Status Date / Time hazelnut Allergy Anaphylaxis Verified 07/13/21 15:03 Physical Exam Vitals: Vital Signs Temp Pulse Pulse Resp BP BP Pulse Ox 07/14/21 12:09 97.8 F 51 L 17 122/62 99 07/14/21 11:34 20 07/14/21 07:11 98.5 F 51 L 19 125/66 97 07/13/21 22:33 68 18 122/74 94 L 07/13/21 19:00 18 135/72 98 07/13/21 18:47 98.2 F 50 L 18 135/72 99 07/13/21 15:00 97.6 F 73 19 173/83 97 Intake and Output 07/13/21 07/14/21 07/14/21 22:59 06:59 14:59 Other: Weight 124.284 kg Results CBC & Chem 7: 07/15/21 05:18 07/15/21 05:18 Labs: Abnormal Lab Results - Last 24 Hours (Table) 07/13/21 07/13/21 07/14/21 Range/Units 16:19 23:26 03:47 BUN 44 H 46.0 H (9-20) mg/dL Creatinine 1.92 H 2.0 H (0.66-1.25) mg/dL Est GFR (CKD-EPI)AfAm 37.0 L (60.0-200.0) Est GFR (CKD-EPI)NonAf 31.9 L (60.0-200.0) BUN/Creatinine Ratio 23.00 H (12.00-20.00) Ratio Glucose 104 H (74-99) mg/dL POC Glucose (mg/dL) 168 H (75-99) mg/dL 07/14/21 Range/Units 11:57 BUN (9-20) mg/dL Creatinine (0.66-1.25) mg/dL Est GFR (CKD-EPI)AfAm (60.0-200.0) Est GFR (CKD-EPI)NonAf (60.0-200.0) BUN/Creatinine Ratio (12.00-20.00) Ratio Glucose (74-99) mg/dL POC Glucose (mg/dL) 133 H (75-99) mg/dL
[2021-07-15] MEDS ORDERED: HYDROmorphone 0.5 MG/0.5 ML SYRINGE IVP PRN (07:00)
[2021-07-15] MEDS ORDERED: fentaNYL (PF) 50 MCG/ML 2 ML AMP IV PRN (07:00)
[2021-07-15 07:16] LABS: Glucose,Whole Blood 92 mg/dL (75-99)
[2021-07-15] MEDS: Empagliflozin [Jardiance] PO SCH (07:22)
[2021-07-15] MEDS: INSULIN ASPART (NovoLOG) 100 UNIT/ML VIAL SQ SCH ×4 (07:22→21:46)
[2021-07-15] MEDS: PANTOPRAZOLE 40 MG TABLET PO SCH (07:22)
[2021-07-15] MEDS: HEPARIN SODIUM,PORCINE/PF 5,000 UNIT/0.5 ML SYRINGE SQ SCH ×2 (07:23→21:46)
[2021-07-15] MEDS: METOPROLOL TARTRATE 25 MG TAB PO SCH ×2 (07:52→21:46)
[2021-07-15] MEDS: SODIUM CHLORIDE 0.9% 1,000 ML IV SCH ×2 (07:53→23:38)
[2021-07-15] MEDS: VANCOMYCIN 2,000 MG in SODIUM CHLORIDE 0.9% 500 ML 500 ML IVPB SCH (09:09)
--- NOTE | 2021-07-15 11:31 | P.CONS ---
History of Present Illness - Reason for Consult Consult date: 07/15/21 wound care - History of Present Illness This is a 76-year-old patient being seen on [address] for a nonhealing ulceration to the left second toe with failed outpatient treatment and positive ostial found on bone scan. Patient was sent to the emergency department by recommendation from his PCP. Patient had injured his left second toe in May by hitting it on a door which causes a small wound. Patient was seen at [facility] for left toe nonhealing wound and was told to come to the emergency department for further evaluation. Patient was sent home on Bactrim and Keflex on 06/18/2021. He then went and seen his PCP at the [place] and was given another course of antibiotics which he finished. Patient continued to have throbbing and discomfort to his toe. He saw his PCP again on Monday who took x-rays and felt that he needed to have an evaluation at the hospital. Patient has history of diabetes, coronary artery disease, peripheral artery arterial disease, status post CABG, hyperlipidemia, hypertension, and gout. Patient is scheduled for a debridement possible amputation today. Left second toe with a wound on distal aspect. No drainage or odor Review Of Systems: Constitutional: No fever, no chills, no night sweats. No weight change. No weakness, fatigue or lethargy. No daytime sleepiness. Integumentary:reports wounds, no lesions. No rash or pruritus. No unusual bruising. No change in hair or nails. Physical exam: General Appearance: Alert, cooperative, no distress, appears stated age. Skin: See HPI all other Skin color, texture, tugor normal, no rashes or lesions. Neurologic: Alert oriented x3 Assessment: 1. Diabetic foot ulcer 2. Nonhealing ulceration with bone necrosis left foot 3. Osteomyelitis Plan: 1. Discussed in length with the patient outpatient options including advanced w ound care and wound care clinic and hyperbaric oxygen therapy. Patient is reluctant at this time to proceed with coming to a wound care clinic. He is happy with having home care come in to do wound care. No dressings will be ordered until after surgical intervention. Thank you for the consultation any questions please contact the wound care center DNP note has been reviewed and discussed with Dr. Schumacher and the impression and plan of care has been directed as dictated. Past Medical History Past Medical History: Diabetes Mellitus, Hyperlipidemia, Hypertension, Myocardial Infarction ([place]) Additional Past Medical History / Comment(s): GOUT. HX: CELLULITIS POST RIGHT KNEE SCOPE (STREP). MRSA OF RIGHT BIG TOE. Coronary artery disease with previous CABG 3 vessel, myocardial infarction, kidney stones Last Myocardial Infarction Date:: 25 years ago History of Any Multi-Drug Resistant Organisms: MRSA Year Discovered:: 05/09/10 MDRO Source:: RIGHT BIG TOE. Past Surgical History: Coronary Bypass/CABG, Heart Catheterization, Orthopedic Surgery, Tonsillectomy Additional Past Surgical History / Comment(s): BILATERAL KNEE REPLACEMENT. Past Anesthesia/Blood Transfusion Reactions: No Reported Reaction Past Psychological History: No Psychological Hx Reported Smoking Status: Never smoker Past Alcohol Use History: None Reported Past Drug Use History: None Reported - Past Family History Mother Family Medical History: Coronary Artery Disease (CAD), Diabetes Mellitus Father Family Medical History: Coronary Artery Disease (CAD), Diabetes Mellitus Medications and Allergies Home Medications Medication Instructions Recorded Confirmed Type Atorvastatin [Lipitor] 40 mg PO HS 06/28/17 07/13/21 History Glimepiride [Amaryl] 1 mg PO DAILY 06/28/17 07/13/21 History Multivitamins, Thera [Multivitamin 1 tab PO DAILY 06/28/17 07/13/21 History (formulary)] Pantoprazole Sodium 40 mg PO DAILY 06/28/17 07/13/21 History allopurinoL [Zyloprim] 300 mg PO DAILY 06/28/17 07/13/21 History Pioglitazone [Actos] 30 mg PO DAILY 11/11/19 07/13/21 History lisinopriL 20 mg PO DAILY 11/11/19 07/13/21 History Furosemide [Lasix] 80 mg PO DAILY 11/12/19 07/13/21 History Aspirin EC [Ecotrin Low Dose] 81 mg PO DAILY 07/13/21 07/13/21 History Empagliflozin [Jardiance] 10 mg PO DAILY 07/13/21 07/13/21 History Ergocalciferol [Vitamin D2 (1250 1,250 mcg PO Q30D 07/13/21 07/13/21 History Mcg = 93174 Iu)] Ezetimibe [Zetia] 10 mg PO DAILY 07/13/21 07/13/21 History Metoprolol Tartrate [Lopressor] 25 mg PO BID 07/13/21 07/13/21 History Nitroglycerin Sl Tabs [Nitrostat] 0.4 mg SL Q5M PRN 07/13/21 07/13/21 History [place]-3 Fatty Acids/Fish Oil [Fish 2 cap PO DAILY 07/13/21 07/13/21 History Oil 1,000 mg Softgel] Sulfamethox-Tmp 800-160Mg [Bactrim 1 tab PO Q12H 07/13/21 07/13/21 History Ds] Allergies Allergy/AdvReac Type Severity Reaction Status Date / Time hazelnut Allergy Anaphylaxis Verified 07/13/21 15:03 Physical Exam Vitals: Vital Signs Temp Pulse Pulse Pulse Resp BP BP 07/15/21 05:00 97.9 F 47 L 16 143/92 07/14/21 20:47 97.4 F L 63 16 136/72 07/14/21 19:15 98.2 F 53 L 18 95/69 07/14/21 12:09 97.8 F 51 L 17 122/62 07/14/21 11:34 20 Pulse Ox 07/15/21 05:00 98 07/14/21 20:47 98 07/14/21 19:15 98 07/14/21 12:09 99 07/14/21 11:34 Intake and Output 07/14/21 07/15/21 07/15/21 22:59 06:59 14:59 Intake Total 590 Balance 590 Intake: Oral 590 Other: # Voids 2 Results CBC & Chem 7: 07/15/21 05:18 07/15/21 05:18 Labs: Abnormal Lab Results - Last 24 Hours (Table) 07/14/21 07/14/21 07/14/21 Range/Units 11:57 17:15 20:42 RBC (4.30-5.90) m/uL Hct (39.0-53.0) % Chloride (98-107) mmol/L BUN (9-20) mg/dL Creatinine (0.66-1.25) mg/dL Glucose (74-99) mg/dL POC Glucose (mg/dL) 133 H 111 H 116 H (75-99) mg/dL 07/15/21 07/15/21 Range/Units 05:18 05:18 RBC 4.14 L (4.30-5.90) m/uL Hct 38.5 L (39.0-53.0) % Chloride 108 H (98-107) mmol/L BUN 31 H (9-20) mg/dL Creatinine 1.37 H (0.66-1.25) mg/dL Glucose 114 H (74-99) mg/dL POC Glucose (mg/dL) (75-99) mg/dL Microbiology - Last 24 Hours (Table) 07/13/21 23:45 Blood Culture - Preliminary Blood No Growth after 24 hours 07/13/21 23:30 Blood Culture - Preliminary Blood No Growth after 24 hours Assessment and Plan (1) Diabetic foot ulcer Current Visit: Yes Status: Acute Code(s): E11.621 - TYPE 2 DIABETES MELLITUS WITH FOOT ULCER; L97.509 - NON-PRESSURE CHRONIC ULCER OTH PRT UNSP FOOT W UNSP SEVERITY SNOMED Code(s): 902943838 (2) Non-healing ulcer of left foot with necrosis of bone Current Visit: Yes Status: Acute Code(s): L97.524 - NON-PRS CHRONIC ULCER OTH PRT LEFT FOOT W NECROSIS OF BONE SNOMED Code(s): 566567390 (3) Osteomyelitis Current Visit: Yes Status: Acute Code(s): M86.9 - OSTEOMYELITIS, UNSPECIFIED SNOMED Code(s): 85423710
[2021-07-15 12:09] LABS: Glucose,Whole Blood 83 mg/dL (75-99)
[2021-07-15] MEDS ORDERED: IV FLUID CONTINUATION 750 ML IV ONE (13:44)
[2021-07-15 14:09] LABS: Glucose,Whole Blood 71 mg/dL (75-99)
[2021-07-15] MEDS ORDERED: DEXTROSE 50% SYRINGE 50 ML IVP ONE (14:13)
[2021-07-15] MEDS ORDERED: MIDAZOLAM 2 MG/2 ML VIAL ONE (14:16)
[2021-07-15] MEDS ORDERED: KETAMINE 10 MG/ML 20 ML VIAL ONE (14:16)
[2021-07-15] MEDS ORDERED: PROPOFOL 10 MG/ML 20 ML VIAL IV ONE (14:16)
[2021-07-15] MEDS ORDERED: LIDOCAINE 1% INJ 10MG/ML (20 ML MDV) SQ ONE ×2 (14:37)
[2021-07-15] MEDS ORDERED: BACITRACIN ZINC 500 UNIT/GM OINT 28.4 GM TUBE TOPICAL ONE (14:44)
--- NOTE | 2021-07-15 14:51 | PN ---
PROGRESS NOTE DATE OF SERVICE: 07/15/2021 REASON FOR FOLLOWUP: Left 2nd toe osteomyelitis. INTERVAL HISTORY: The patient is currently afebrile. He is breathing comfortably, waiting for surgical debridement and cultures. Denies any chest pain, shortness of breath. No cough. No abdominal pain. No diarrhea or any worsening pain to the left second toe. PHYSICAL EXAMINATION: Blood pressure 143/79 with a pulse of 61, temperature 98.5. He is 98% on room air. General description: An elderly male up in the chair in no distress. Respiratory system: Unlabored breathing. Clear to auscultation anteriorly. Heart S1, S2. Regular rate and rhythm. Abdomen soft, no tenderness. Left second toe is currently dressed. LABS: Creatinine is 1.37. DIAGNOSTIC IMPRESSION AND PLAN: Patient with left second toe osteomyelitis, with nonhealing wound. Waiting for surgical debridement and cultures. Continue with Unasyn and vancomycin adjusting it further based on culture report. Continue supportive care. MMODL / IJN: [id number] /
--- NOTE | 2021-07-15 14:57 | P.OP ---
Date of Procedure: 07/15/21 Preoperative Diagnosis: Nonhealing wound distal tuft of the second toe left foot. Postoperative Diagnosis: Same Procedure(s) Performed: #1: Excisional debridement nonviable tissue distal tuft of the left second toe. #2: Tissue culture. Implants: None. Anesthesia: MAC, local (1% Xylocaine.) Surgeon: Hernandez Javed Estimated Blood Loss (ml): 0 Urine output (ml): 0 Pathology: other (Wound culture.) Condition: stable Disposition: no change Indications for Procedure: Patient is a 76-year-old male with at least a 10 year history of diabetes mellitus who had presented with a nonhealing wound of the distal tuft of the second toe left foot. He denies any previous similar symptoms. There is no history of claudication or ischemic rest pain. Physical examination revealed femoral pulses are intact on with popliteal pulses bilaterally over the pedal pulses are absent. Arterial Doppler and been performed which demonstrated perfusion appearing sufficient for wound healing. Patient is offered debridement of the wound for clear evaluation of the wound and help guide future management. Description of Procedure: Patient was brought the upper and placed in supine position and administered attended anesthesia delivered by the department anesthesiology. The patient's left foot was sterilely prepped and draped in usual manner. 1% Xylocaine was utilized for local anesthesia and a digit block manner. The wound had a large area of callus tissue surrounding the distal tuft. This was shaved back to normal healthy tissue utilizing a surgical scalpel. A Of nonviable tissue was sharply excised utilizing a surgical scalpel revealing a wound which measured 10 mm x 10 mm in length and width and by 2 mm in depth. Cultures of this area were obtained. All nonviable tissue was sharply excised. Proper dressings were applied. Patient tolerated procedure well. He was taken the recovery area satisfactory and stable condition.
[2021-07-15 15:00] LABS: Glucose,Whole Blood 94 mg/dL (75-99)
--- NOTE | 2021-07-15 16:27 | PN ---
PROGRESS NOTE DATE OF SERVICE: 07/15/2021 This 76-year-old gentleman admitted with nonhealing ulcer and possible osteomyelitis of the second toe on the left is undergoing surgical evaluation today. No chest pain. No palpitations. No fever. Cultures are showing MRSA. PHYSICAL EXAMINATION: Alert and oriented x3. Pulse 57, blood pressure 147/70, respiration 18, temperature 97.3, pulse ox 98% on room air. HEENT: Conjunctivae normal. NECK: No jugular venous distention. CARDIOVASCULAR: S1, S2 muffled. RESPIRATION: Breath sounds diminished at the bases. No rhonchi. No crackles. ABDOMEN: Soft, obese. LEGS: Left leg wound present. NERVOUS SYSTEM: No focal deficit. LABS: Creatinine is 1.6. Accu-Cheks are noted. ASSESSMENT: 1. Acute nonhealing ulcer of the second toe of the left foot, possible acute osteomyelitis. 2. Rule out peripheral vascular disease. 3. Increased creatinine with acute renal failure with acute tubular necrosis, present on admission. 4. Diabetes mellitus, type 2. 5. Hypertension. 6. Hyperlipidemia. 7. History of myocardial infarction. 8. History of gout. 9. History of cellulitis. 10.History of coronary artery disease, coronary artery bypass grafting. 11.History of cardiac catheterization. 12.Obesity with body mass index of 38.8. 13.FULL CODE. RECOMMENDATIONS AND DISCUSSION: I recommend to continue current medications, continue symptomatic treatment. Continue the antibiotics. Debridement. Guarded prognosis because of multiple complex medical issues. Further recommendations to follow. MMODL / IJN: [id number] /
[2021-07-15] MEDS: PIOGLITAZONE 30 MG TAB PO SCH (17:11)
[2021-07-15] MEDS: GLIMEPIRIDE 1 MG TAB PO SCH (17:11)
[2021-07-15] MEDS: allopurinoL 300 MG TAB PO SCH (17:16)
[2021-07-15] MEDS: EZETIMIBE 10 MG TAB PO SCH (17:16)
[2021-07-15] MEDS: MULTIVITAMINS, THERA 1 EACH TAB PO SCH (17:16)
[2021-07-15] MEDS: ASPIRIN 81 MG PO SCH (17:16)
[2021-07-15 17:24] LABS: Glucose,Whole Blood 155 mg/dL (75-99)
[2021-07-15] MEDS: LACTATED RINGERS 1,000 ML IV SCH (18:05)
[2021-07-15 20:49] LABS: Glucose,Whole Blood 195 mg/dL (75-99)
[2021-07-15] MEDS: ATORVASTATIN 40 MG TAB PO SCH (21:46)
[2021-07-15] MEDS: ACETAMINOPHEN TAB 500 MG TAB PO PRN (21:50)
[2021-07-16] MEDS: AMPICILLIN-SULBACTAM 3 GM in SODIUM CHLORIDE 0.9% 100 ML IVPB SCH ×4 (05:26→23:44)
[2021-07-16 06:38] LABS: Glucose,Whole Blood 132 mg/dL (75-99)
[2021-07-16] MEDS: INSULIN ASPART (NovoLOG) 100 UNIT/ML VIAL SQ SCH ×4 (07:19→20:16)
[2021-07-16] MEDS ORDERED: VANCOMYCIN TROUGH DUE 1 EACH MISC MISCELLANE ONE (08:00)
[2021-07-16] MEDS: VANCOMYCIN 2,000 MG in SODIUM CHLORIDE 0.9% 500 ML 500 ML IVPB SCH (09:47)
[2021-07-16] MEDS: PANTOPRAZOLE 40 MG TABLET PO SCH (09:59)
[2021-07-16] MEDS: ASPIRIN 81 MG PO SCH (10:00)
[2021-07-16] MEDS: allopurinoL 300 MG TAB PO SCH (10:00)
[2021-07-16] MEDS: EZETIMIBE 10 MG TAB PO SCH (10:01)
[2021-07-16] MEDS: Empagliflozin [Jardiance] PO SCH (10:02)
[2021-07-16] MEDS: METOPROLOL TARTRATE 25 MG TAB PO SCH ×2 (10:03→20:38)
[2021-07-16] MEDS: GLIMEPIRIDE 1 MG TAB PO SCH (10:06)
[2021-07-16] MEDS: HEPARIN SODIUM,PORCINE/PF 5,000 UNIT/0.5 ML SYRINGE SQ SCH ×2 (10:08→20:31)
[2021-07-16] MEDS: MULTIVITAMINS, THERA 1 EACH TAB PO SCH (10:25)
[2021-07-16] MEDS: PIOGLITAZONE 30 MG TAB PO SCH (10:25)
--- NOTE | 2021-07-16 10:45 | P.PN ---
Subjective Progress Note Date: 07/16/21 This is a 76-year-old patient being seen on [address] for a nonhealing ulceration to the left second toe with failed outpatient treatment and positive ostial found on bone scan. Patient was sent to the emergency department by recommendation from his PCP. Patient had injured his left second toe in May by hitting it on a door which causes a small wound. Patient was seen at [facility] for left toe nonhealing wound and was told to come to the emergency department for further evaluation. Patient was sent home on Bactrim and Keflex on 06/18/2021. He then went and seen his PCP at the [facility] and was given another course of antibiotics which he finished. Patient continued to have throbbing and discomfort to his toe. He saw his PCP again on Monday who took x-rays and felt that he needed to have an evaluation at the hospital. Patient has history of diabetes, coronary artery disease, peripheral artery arterial disease, status post CABG, hyperlipidemia, hypertension, and gout. Patient is scheduled for a debridement possible amputation today. Left second toe with a wound on distal aspect. No drainage or odor 07/16/2021: Patient had a surgical debridement yesterday with Dr. Roche. The ulceration measures 1 x 1 x 0.2. He has a surgical dressing on the site. Discussed in great length with the patient the post care regarding wound care and continue with IV antibiotics. Patient was agreeable to going to wound care. Review Of Systems: Constitutional: No fever, no chills, no night sweats. No weight change. No weakness, fatigue or lethargy. No daytime sleepiness. Integumentary:reports wounds, no lesions. No rash or pruritus. No unusual bruising. No change in hair or nails. Physical exam: General Appearance: Alert, cooperative, no distress, appears stated age. Skin: See HPI all other Skin color, texture, tugor normal, no rashes or lesions. Neurologic: Alert oriented x3 Assessment: 1. Diabetic foot ulcer 2. Nonhealing ulceration with bone necrosis left foot 3. Osteomyelitis Plan: 1. Apply absorptive silver, saline moistened gauze, dry gauze, rolled gauze secured with paper tape. Change Monday. Patient to utilize a walker for ambulation. No weightbearing to left forefoot. 2.Discussed in length with the patient outpatient options including advanced wound care and wound care clinic and hyperbaric oxygen therapy. he was agreeable to have wound care. Thank you for the consultation any questions please contact the wound care center DNP note has been reviewed and discussed with Dr. Schumacher and the impression and plan of care has been directed as dictated. Objective - Vital Signs Vital signs: Vital Signs Temp 98.5 F 07/16/21 05:51 Pulse 52 L 07/16/21 09:24 Resp 20 07/16/21 05:51 BP 109/55 07/16/21 05:51 Pulse Ox 99 07/16/21 05:51 Intake & Output 07/15/21 07/16/21 07/16/21 18:59 06:59 18:59 Intake Total 1675 1000 Output Total 2 Balance 1673 1000 Weight 124.284 kg Intake: IV 375 Intake, IV Titration 1300 1000 Amount Ampicillin-Sulbactam 3 gm 200 200 In Sodium Chloride 0.9% 100 ml @ 200 mls/hr IVPB Q6HR [facility] Rx#:[id number] IV Fluid Continuation 750 600 ml @ 0 mls/hr IV .[facility] Rx#:[id number] Sodium Chloride 0.9% 1, 800 000 ml @ 75 mls/hr IV . [id number] [facility] Rx#:[id number] Vancomycin 2,000 mg In 500 Sodium Chloride 0.9% 500 ml 500 ml @ 167 mls/hr IVPB DAILY [facility] Rx#: [id number] Output: Estimated Blood Loss 2 Other: Voiding Method Toilet Toilet # Voids 3 - Labs CBC & Chem 7: 07/15/21 05:18 07/15/21 05:18 Labs: Abnormal Lab Results - Last 24 Hours (Table) 07/15/21 07/15/21 07/15/21 Range/Units 14:08 17:21 20:48 POC Glucose (mg/dL) 71 L 155 H 195 H (75-99) mg/dL 07/16/21 Range/Units 06:36 POC Glucose (mg/dL) 132 H (75-99) mg/dL Microbiology - Last 24 Hours (Table) 07/15/21 14:45 Gram Stain - Preliminary Toe - Left Second Wound Culture - Preliminary 07/13/21 23:30 Blood Culture - Preliminary Blood No Growth after 48 hours 07/13/21 23:45 Blood Culture - Preliminary Blood No Growth after 48 hours 07/15/21 14:45 Fungal Culture - Preliminary Toe - Left Second 07/15/21 14:45 Anaerobic Culture - Preliminary Toe - Left Second Assessment and Plan (1) Diabetic foot ulcer Current Visit: Yes Status: Acute Code(s): E11.621 - TYPE 2 DIABETES MELLITUS WITH FOOT ULCER; L97.509 - NON-PRESSURE CHRONIC ULCER OTH PRT UNSP FOOT W UNSP SEVERITY SNOMED Code(s): 531686924 (2) Non-healing ulcer of left foot with necrosis of bone Current Visit: Yes Status: Acute Code(s): L97.524 - NON-PRS CHRONIC ULCER OTH PRT LEFT FOOT W NECROSIS OF BONE SNOMED Code(s): 864547246 (3) Osteomyelitis Current Visit: Yes Status: Acute Code(s): M86.9 - OSTEOMYELITIS, UNSPECIFIED SNOMED Code(s): 96918213
[2021-07-16 12:18] LABS: Glucose,Whole Blood 153 mg/dL (75-99)
[2021-07-16] MEDS: SODIUM CHLORIDE 0.9% 1,000 ML IV SCH ×2 (15:26→23:44)
[2021-07-16 17:06] LABS: Glucose,Whole Blood 97 mg/dL (75-99)
--- NOTE | 2021-07-16 17:34 | PN ---
PROGRESS NOTE DATE OF SERVICE: 07/16/2021. This 76-year-old gentleman who was admitted with acute nonhealing ulcer of the 2nd toe, had debridement and deep tissue cultures are pending. No chest pain. No palpitations. Patient on empiric antibiotics. PHYSICAL EXAMINATION: Alert and oriented times three. Pulse 64. Blood pressure 130/77, respiration 16, temperature 97.8, pulse ox 97% on room air. HEENT: Conjunctivae normal. Neck: No JVD. Cardiovascular: S1, S2 muffled. Respiration: Breath sounds diminished in the bases. Abdomen soft. Nontender. Nervous system: No focal deficits. LABS: Accu-Cheks 130-150. Vancomycin levels noted. Other labs are noted. Creatinine is 1.37. ASSESSMENT: 1. Acute nonhealing ulcer of the 2nd toe of the left foot with possible acute osteomyelitis. 2. Rule out peripheral vascular disease. 3. Increased creatinine with acute renal failure with acute tubular necrosis. 4. Diabetes mellitus type 2. 5. Hypertension. 6. Hyperlipidemia. 7. History of myocardial infarction. 8. History of gout. 9. History of cellulitis. 10.History of coronary artery disease/ coronary artery bypass grafting. 11.History of cardiac catheterization. 12.Obesity with body mass index 38.8. 13.FULL CODE. RECOMMENDATIONS AND DISCUSSION: Continue current medications, management. Symptomatic treatment. Repeat labs. Otherwise, await final deep cultures. Recommend probably long-term IV antibiotics for the osteomyelitis. Further recommendations to follow. MMODL / IJN: [id number] /
--- NOTE | 2021-07-16 18:10 | PN ---
PROGRESS NOTE DATE OF SERVICE: 07/16/2021 REASON FOR FOLLOWUP: Left second toe wound and osteomyelitis. INTERVAL HISTORY: Patient is afebrile. The patient is breathing comfortably. The patient is status post excisional debridement of the left second toe tuft. The patient tolerated the procedure. Pain is currently controlled. No chest pain, shortness of breath or cough. No abdominal pain or diarrhea. PHYSICAL EXAMINATION: Blood pressure 130/74 with a pulse of 54, temperature 97.8. He is 97% on room air. General description is an elderly male up in the chair in no distress. Respiratory system: Unlabored breathing, clear to auscultation anteriorly. Heart S1, S2. Regular rate and rhythm. Abdomen soft, no tenderness. Left foot is currently dressed. No drainage on dressing. LABS: Cultures are currently pending. Vancomycin trough low at 11.9. DIAGNOSTIC IMPRESSION AND PLAN: Patient with left second toe chronic nonhealing wound with underlying osteomyelitis, status post debridement. Cultures are pending. Patient to continue with Unasyn and Vanco with discharge antibiotic depending on the basis of culture report. Continue supportive care. MMODL / IJN: [id number] /
[2021-07-16 20:06] LABS: Glucose,Whole Blood 110 mg/dL (75-99)
[2021-07-16] MEDS: ATORVASTATIN 40 MG TAB PO SCH (20:38)
[2021-07-17] MEDS: VANCOMYCIN 2,000 MG in SODIUM CHLORIDE 0.9% 500 ML 500 ML IVPB SCH ×2 (00:51→15:39)
[2021-07-17] MEDS: AMPICILLIN-SULBACTAM 3 GM in SODIUM CHLORIDE 0.9% 100 ML IVPB SCH ×3 (06:16→19:21)
[2021-07-17 07:47] LABS: Glucose,Whole Blood 69 mg/dL (75-99)
[2021-07-17 07:48] LABS: Basophils # (A) 0.1 k/uL (0-0.2); Basophils % (A) 1 %; Eosinophils # (A) 0.3 k/uL (0-0.7); Eosinophils % (A) 3 %; HCT 38.4 % (39.0-53.0); HGB 12.9 gm/dL (13.0-17.5); Lymphocytes # (A) 2.5 k/uL (1.0-4.8); Lymphocytes % (A) 28 %; MCH 31.8 pg (25.0-35.0); MCHC 33.6 g/dL (31.0-37.0); MCV 94.9 fL (80.0-100.0); Mean Platelet Volume 7.8; Monocytes # (A) 0.7 k/uL (0-1.0); Monocytes % (A) 8 %; Neutrophils % (A) 58 %; Platelet Count 162 k/uL (150-450); RBC 4.05 m/uL (4.30-5.90); RDW 15.2 % (11.5-15.5); WBC 8.8 k/uL (3.8-10.6)
[2021-07-17] MEDS: ASPIRIN 81 MG PO SCH (08:08)
[2021-07-17] MEDS: allopurinoL 300 MG TAB PO SCH (08:08)
[2021-07-17] MEDS: MULTIVITAMINS, THERA 1 EACH TAB PO SCH (08:08)
[2021-07-17] MEDS: PANTOPRAZOLE 40 MG TABLET PO SCH (08:08)
[2021-07-17] MEDS: METOPROLOL TARTRATE 25 MG TAB PO SCH ×2 (08:09→20:50)
[2021-07-17] MEDS: Empagliflozin [Jardiance] PO SCH (08:09)
[2021-07-17] MEDS: INSULIN ASPART (NovoLOG) 100 UNIT/ML VIAL SQ SCH ×4 (08:09→20:50)
[2021-07-17] MEDS: EZETIMIBE 10 MG TAB PO SCH (08:10)
[2021-07-17] MEDS: HEPARIN SODIUM,PORCINE/PF 5,000 UNIT/0.5 ML SYRINGE SQ SCH ×2 (08:10→20:50)
[2021-07-17] MEDS: GLIMEPIRIDE 1 MG TAB PO SCH (08:11)
[2021-07-17] MEDS: PIOGLITAZONE 30 MG TAB PO SCH (08:11)
[2021-07-17 08:21] LABS: Glucose,Whole Blood 72 mg/dL (75-99)
[2021-07-17] MEDS: ACETAMINOPHEN TAB 500 MG TAB PO PRN (11:13)
[2021-07-17 12:04] LABS: African American GFR (CKD) 68.6 (60.0-200.0); Anion Gap 5.1 mmol/L (4.00-12.00); BUN/Creat Ratio 19.17 Ratio (12.00-20.00); Calcium 8.8 mg/dL (8.7-10.3); Carbon Dioxide 22.9 mmol/L (21.6-31.8); Non-African American GFR(CKD) 59.2 (60.0-200.0); Potassium 4.9 mmol/L (3.5-5.5)
[2021-07-17 12:54] LABS: Glucose,Whole Blood 89 mg/dL (75-99)
--- NOTE | 2021-07-17 17:04 | PN ---
PROGRESS NOTE DATE OF SERVICE: 07/17/2021 This 76-year-old gentleman was admitted with osteomyelitis of the second toe, has been closely monitored. Deep cultures have been taken. Final ID is pending. No chest pain. No palpitations. No fever. The patient is empirically on vancomycin. PHYSICAL EXAMINATION: Alert and oriented x3. Pulse is 53, blood pressure 131/71, respiration 18 temperature 98.2, pulse ox 98% on room air. skin: Scars respiration is. HEENT: Conjunctivae normal. Oral mucosa moist. NECK: No jugular venous distention. No lymph node enlargement. CARDIOVASCULAR: S1, S2, muffled. No S3, no S4, RESPIRATORY: Diminished breath sounds at the bases. No wheeze. ABDOMEN: Soft, nontender. LEGS: Left second toe is status post debridement. LAB: Hemoglobin 12.9, glucose 69 and 72. ASSESSMENT: 1. Acute nonhealing ulcer of the second toe with acute osteomyelitis status post debridement, awaiting deep cultures. 2. Rule out peripheral vascular disease. 3. Increased creatinine with acute renal failure with acute tubular necrosis, present on admission. 4. Diabetes mellitus type 2. 5. Hypertension. 6. Hyperlipidemia. 7. History of myocardial infarction. 8. History of gout. 9. History of cellulitis. 10.History of CAD, CABG. 11.History of cardiac catheterization. 12.Obesity, body mass of 38.8. 13.FULL CODE. RECOMMENDATIONS AND DISCUSSION: I recommend to continue current management and symptomatic treatment. Otherwise, continue with antibiotics but, however, we await the final culture report and monitor the blood sugars closely. Further recommendations to follow. MMODL / IJN: [id number] /
[2021-07-17 17:19] LABS: Glucose,Whole Blood 95 mg/dL (75-99)
--- NOTE | 2021-07-17 19:10 | PN ---
PROGRESS NOTE DATE OF SERVICE: 07/17/2021 REASON FOR FOLLOWUP: Left second toe osteomyelitis. INTERVAL HISTORY: The patient is afebrile. The patient is breathing comfortably. Overall pain and discomfort to the left second toe debridement site is currently decreased. No chest pain, shortness of breath or cough. No abdominal pain or diarrhea. PHYSICAL EXAMINATION: Blood pressure 120/70 with a pulse of 53, temperature 98.6. He is 98% on room air. General description is an elderly male lying in bed in no distress. Respiratory system: Unlabored breathing, clear to auscultation anteriorly. Heart S1, S2. Regular rate and rhythm. Abdomen soft, no tenderness. Left foot is currently dressed. No obvious drainage on the dressing. LABS: Hemoglobin is 12.1, white count 8.8. BUN of 23, creatinine 1.2. DIAGNOSTIC IMPRESSION AND PLAN: Patient with left second toe tip osteomyelitis status post debridement. Cultures are currently pending. Patient is covered with vancomycin and Unasyn to continue. Adjust discharge antibiotic on the basis of the culture report. Continue supportive care. MMODL / IJN: [id number] /
[2021-07-17 20:21] LABS: Glucose,Whole Blood 110 mg/dL (75-99)
[2021-07-17] MEDS: SODIUM CHLORIDE 0.9% 1,000 ML IV SCH (20:49)
[2021-07-17] MEDS: ATORVASTATIN 40 MG TAB PO SCH (20:50)
[2021-07-18] MEDS: AMPICILLIN-SULBACTAM 3 GM in SODIUM CHLORIDE 0.9% 100 ML IVPB SCH ×4 (00:18→18:04)
[2021-07-18 08:19] LABS: Glucose,Whole Blood 87 mg/dL (75-99)
[2021-07-18] MEDS: VANCOMYCIN 2,000 MG in SODIUM CHLORIDE 0.9% 500 ML 500 ML IVPB SCH (08:35)
[2021-07-18] MEDS: PANTOPRAZOLE 40 MG TABLET PO SCH (08:35)
[2021-07-18] MEDS: ASPIRIN 81 MG PO SCH (08:35)
[2021-07-18] MEDS: METOPROLOL TARTRATE 25 MG TAB PO SCH (08:35)
[2021-07-18] MEDS: allopurinoL 300 MG TAB PO SCH (08:35)
[2021-07-18] MEDS: HEPARIN SODIUM,PORCINE/PF 5,000 UNIT/0.5 ML SYRINGE SQ SCH ×2 (08:35→21:11)
[2021-07-18] MEDS: MULTIVITAMINS, THERA 1 EACH TAB PO SCH (08:35)
[2021-07-18] MEDS: SODIUM CHLORIDE 0.9% 1,000 ML IV SCH ×2 (08:36→22:52)
[2021-07-18] MEDS: EZETIMIBE 10 MG TAB PO SCH (08:36)
[2021-07-18] MEDS: GLIMEPIRIDE 1 MG TAB PO SCH (08:36)
[2021-07-18] MEDS: INSULIN ASPART (NovoLOG) 100 UNIT/ML VIAL SQ SCH ×4 (08:36→21:11)
[2021-07-18] MEDS: PIOGLITAZONE 30 MG TAB PO SCH (08:36)
[2021-07-18] MEDS: Empagliflozin [Jardiance] PO SCH (08:36)
[2021-07-18 12:30] LABS: Glucose,Whole Blood 101 mg/dL (75-99)
[2021-07-18 17:59] LABS: Glucose,Whole Blood 86 mg/dL (75-99)
[2021-07-18 20:54] LABS: Glucose,Whole Blood 142 mg/dL (75-99)
[2021-07-18] MEDS: ACETAMINOPHEN TAB 500 MG TAB PO PRN (21:10)
[2021-07-18] MEDS: ATORVASTATIN 40 MG TAB PO SCH (21:11)
[2021-07-19] MEDS: AMPICILLIN-SULBACTAM 3 GM in SODIUM CHLORIDE 0.9% 100 ML IVPB SCH ×4 (00:05→17:43)
--- NOTE | 2021-07-19 00:18 | PN ---
PROGRESS NOTE DATE OF SERVICE: 07/18/2021 REASON FOR FOLLOWUP: Left second toe gangrene and osteomyelitis. INTERVAL HISTORY: The patient is afebrile, has been breathing comfortably. Denies having any chest pain. No shortness of breath or cough. No nausea. No abdominal pain. Overall pain and discomfort to the left second toe debridement site is controlled. PHYSICAL EXAMINATION: Blood pressure 144/72 with a pulse of 53, temperature 98.8. He is 97% on room air. General description is an elderly male lying in bed in no distress. Respiratory system: Unlabored breathing, clear to auscultation anteriorly. Heart S1, S2. Regular rate and rhythm. Abdomen soft, no tenderness. Left foot is currently dressed, no drainage on the dressing. LABS: ( ) is 20. CRP less than 0.4. DIAGNOSTIC IMPRESSION: Patient with left second toe gangrene status post debridement and amputation. Culture has been negative for any resistant pathogen and the patient did not have elevated inflammatory markers, ( ) for underlying deep infection. Unasyn to continue, however, discontinue the vancomycin. Local care per Surgery. Continue supportive care. MMODL / IJN: [id number] /
[2021-07-19] MEDS: METOPROLOL TARTRATE 25 MG TAB PO SCH ×3 (02:19→20:54)
[2021-07-19 06:12] LABS: Basophils # (A) 0.1 k/uL (0-0.2); Basophils % (A) 1 %; Eosinophils # (A) 0.4 k/uL (0-0.7); Eosinophils % (A) 5 %; HCT 40.6 % (39.0-53.0); HGB 13.4 gm/dL (13.0-17.5); Lymphocytes # (A) 2.2 k/uL (1.0-4.8); Lymphocytes % (A) 30 %; MCH 31.1 pg (25.0-35.0); MCHC 33.1 g/dL (31.0-37.0); MCV 94.1 fL (80.0-100.0); Monocytes # (A) 0.6 k/uL (0-1.0); Monocytes % (A) 8 %; Neutrophils # (A) 3.8 k/uL (1.3-7.7); Neutrophils % (A) 53 %; Platelet Count 147 k/uL (150-450); RBC 4.31 m/uL (4.30-5.90); RDW 15.4 % (11.5-15.5); WBC 7.2 k/uL (3.8-10.6)
[2021-07-19 07:34] LABS: Glucose,Whole Blood 62 mg/dL (75-99)
[2021-07-19 07:46] LABS: Glucose,Whole Blood 66 mg/dL (75-99)
[2021-07-19] MEDS: ASPIRIN 81 MG PO SCH (08:03)
[2021-07-19] MEDS: MULTIVITAMINS, THERA 1 EACH TAB PO SCH (08:03)
[2021-07-19] MEDS: PANTOPRAZOLE 40 MG TABLET PO SCH (08:03)
[2021-07-19 08:04] LABS: Glucose,Whole Blood 85 mg/dL (75-99)
[2021-07-19] MEDS: INSULIN ASPART (NovoLOG) 100 UNIT/ML VIAL SQ SCH ×4 (08:04→20:54)
[2021-07-19] MEDS: allopurinoL 300 MG TAB PO SCH (08:04)
[2021-07-19] MEDS: HEPARIN SODIUM,PORCINE/PF 5,000 UNIT/0.5 ML SYRINGE SQ SCH ×2 (08:04→20:54)
[2021-07-19] MEDS: Empagliflozin [Jardiance] PO SCH (08:05)
[2021-07-19] MEDS: EZETIMIBE 10 MG TAB PO SCH (08:05)
[2021-07-19] MEDS: GLIMEPIRIDE 1 MG TAB PO SCH (08:05)
[2021-07-19] MEDS: PIOGLITAZONE 30 MG TAB PO SCH (08:53)
[2021-07-19] MEDS ORDERED: ERGOCALCIFEROL 1,250 MCG (50,000 IU) CAPSULE PO SCH (09:00)
[2021-07-19 09:06] LABS: African American GFR (CKD) 68.6 (60.0-200.0); Anion Gap 7.4 mmol/L (4.00-12.00); BUN/Creat Ratio 16.67 Ratio (12.00-20.00); Calcium 9.1 mg/dL (8.7-10.3); Carbon Dioxide 23.6 mmol/L (21.6-31.8); Non-African American GFR(CKD) 59.2 (60.0-200.0); Potassium 4.2 mmol/L (3.5-5.5)
[2021-07-19] MEDS: SODIUM CHLORIDE 0.9% 1,000 ML IV SCH (11:44)
[2021-07-19 11:56] LABS: Glucose,Whole Blood 99 mg/dL (75-99)
[2021-07-19] MEDS ORDERED: VANCOMYCIN TROUGH DUE 1 EACH MISC MISCELLANE ONE (16:00)
[2021-07-19 17:33] LABS: Glucose,Whole Blood 93 mg/dL (75-99)
[2021-07-19 20:31] LABS: Glucose,Whole Blood 98 mg/dL (75-99)
[2021-07-19] MEDS: ATORVASTATIN 40 MG TAB PO SCH (20:53)
--- NOTE | 2021-07-19 21:31 | PN ---
PROGRESS NOTE DATE OF SERVICE: 07/19/2021 REASON FOR FOLLOWUP: Left 2nd toe osteomyelitis. INTERVAL HISTORY: Patient is afebrile. He is breathing comfortably. The patient denies having any chest pain, shortness of breath or cough. No nausea. No abdominal pain or any worsening pain in the right second toe area. PHYSICAL EXAMINATION: Blood pressure 147/84, pulse 47, temperature 97.6. He is 98% on room air. General description is an elderly male up in the chair in no distress. Respiratory system: Unlabored breathing, clear to auscultation anteriorly. Heart S1, S2. Regular rate and rhythm. Abdomen soft, no tenderness. Left second toe remains to be swollen and red. No foul-smelling drainage. LABS: Culture has been negative so far. DIAGNOSTIC IMPRESSION/PLAN: Left 2nd toe gangrene and osteomyelitis, status post debridement. Culture has been negative. Patient is covered with Unasyn. Transition to IV Rocephin 2 grams daily along with oral Flagyl. Local wound care with Aquacel dressing. Close outpatient followup. MMODL / IJN: [id number] /
--- NOTE | 2021-07-19 22:24 | P.PN ---
Subjective Progress Note Date: 07/18/21 Patient is a 76-year-old male was admitted to the hospital with osteomyelitis of the second toe. Deep wound cultures were taken. Final culture report is pending. Otherwise patient denied any complaints of chest pain or shortness of. Foot pain is controlled with medications. Patient is on antibiotics involve Unasyn. ID is on board. Constitutional: Patient denies any fever or chills . No generalized weakness or weight loss. Abdomen: Patient denied nausea vomiting and diarrhea and abdominal pain. Cardiovascular: Patient denies any chest pain or short of breath no palpitations. Respiratory: patient denied any cough or sputum production. No shortness of breath Neurologic: Patient denied any numbness or tingling headache. Musculoskeletal: Patient denies any complaints of joint swelling or deformity. Objective - Vital Signs Vital signs: Vital Signs Temp 98.1 F 07/18/21 12:27 Pulse 51 L 07/18/21 12:27 Resp 16 07/18/21 12:27 BP 147/65 07/18/21 12:27 Pulse Ox 97 07/18/21 12:27 Intake & Output 07/17/21 07/18/21 07/18/21 18:59 06:59 18:59 Intake Total 1300 1150 1350 Output Total 0 Balance 1300 1150 1350 Intake: Intake, IV Titration 320 Amount Ampicillin-Sulbactam 3 gm 200 In Sodium Chloride 0.9% 100 ml @ 200 mls/hr IVPB Q6HR [facility] Rx#:[id number] Sodium Chloride 0.9% 1, 120 000 ml @ 75 mls/hr IV . [id number] [facility] Rx#:[id number] Oral [id number] Output: Stool 0 Other: Voiding Method Toilet Toilet Toilet # Voids 3 1 3 - Exam PHYSICAL EXAMINATION: Patient is lying in the bed comfortably, no acute distress, awake alert and oriented.. HEENT: Normocephalic. Neck is supple. Pupils reactive. Nostrils clear. Oral cavity is moist. Neck reveals no JVD, carotid bruits, or thyromegaly. CHEST EXAMINATION: Trachea is central. Symmetrical expansion. Lung samson clear to auscultation and percussion. CARDIAC: Normal S1, S2 with no gallops. No murmurs ABDOMEN: Soft. Bowel sounds normal. No organomegaly. No abdominal bruits. Extremities: reveal no edema. No clubbing or cyanosis Neurologically awake, alert, oriented x3 with well-coordinated movements. No focal deficits noted Skin: No rash or skin lesions. Psychiatric: Coperative. Nonsuicidal Musculoskeletal: No joint swelling or deformity. Normal range of motion. - Labs CBC & Chem 7: 07/19/21 05:09 07/19/21 16:12 Labs: Abnormal Lab Results - Last 24 Hours (Table) 07/17/21 07/18/21 Range/Units 20:19 12:26 POC Glucose (mg/dL) 110 H 101 H (75-99) mg/dL Microbiology - Last 24 Hours (Table) 07/13/21 23:30 Blood Culture - Preliminary Blood No Growth after 96 hours 07/13/21 23:45 Blood Culture - Preliminary Blood No Growth after 96 hours 07/15/21 14:45 Anaerobic Culture - Preliminary Toe - Left Second 07/15/21 14:45 Gram Stain - Final Toe - Left Second Wound Culture - Final Assessment and Plan Assessment: Acute nonhealing ulcer of the left second toe status post debridement. Awaiting deep wound cultures. Rule out peripheral vascular disease Acute kidney injury possible ATN. Present on admission Diabetes type 2 Hypertension Hyperlipidemia History of CO Gout History of cardiac disease status post CABG Obesity with BMI 38.8 Plan: Patient is being continued on antibiotics in the form of Unasyn. Follow blood sugars closely and titrate insulin dose. Follow-up culture reports. ID is on board. Time with Patient: Greater than 30
--- NOTE | 2021-07-19 22:26 | P.PN ---
Subjective Progress Note Date: 07/19/21 Patient is a 76-year-old male was admitted to the hospital with osteomyelitis of the second toe. Deep wound cultures were taken. Final culture report is pending. Otherwise patient denied any complaints of chest pain or shortness of. Foot pain is controlled with medications. Patient is on antibiotics involve Unasyn. ID is on board. [id number] Patient is currently resting in the chair comfortably. Left foot pain is better. No complaints of chest pain or shortness of breath. No nausea vomiting abdominal pain or diarrhea. Laboratory data reviewed and blood sugar is better controlled. Patient has been counseled on antibiotics involve Unasyn. Changed to ceftriaxone and Flagyl. ID is on board. Follow-up with cultures and final ID recommendations. Constitutional: Patient denies any fever or chills . No generalized weakness or weight loss. Abdomen: Patient denied nausea vomiting and diarrhea and abdominal pain. Cardiovascular: Patient denies any chest pain or short of breath no palpitations . Respiratory: patient denied any cough or sputum production. No shortness of breath Neurologic: Patient denied any numbness or tingling headache. Musculoskeletal: Patient denies any complaints of joint swelling or deformity. Objective - Vital Signs Vital signs: Vital Signs Temp 97.8 F 07/19/21 19:10 Pulse 53 L 07/19/21 19:10 Resp 20 07/19/21 19:10 BP 160/75 07/19/21 19:10 Pulse Ox 97 07/19/21 19:10 Intake & Output 07/19/21 07/19/21 07/20/21 06:59 18:59 06:59 Intake Total 815 Balance 815 Intake: Intake, IV Titration 575 Amount Ampicillin-Sulbactam 3 gm 200 In Sodium Chloride 0.9% 100 ml @ 200 mls/hr IVPB Q6HR MADDIE Rx#:[id number] Sodium Chloride 0.9% 1, 375 000 ml @ 75 mls/hr IV . [id number] MADDIE Rx#:[id number] Oral 240 Other: Voiding Method Toilet Toilet # Voids 3 - Exam PHYSICAL EXAMINATION: Patient is lying in the bed comfortably, no acute distress, awake alert and oriented.. HEENT: Normocephalic. Neck is supple. Pupils reactive. Nostrils clear. Oral ca vity is moist. Neck reveals no JVD, carotid bruits, or thyromegaly. CHEST EXAMINATION: Trachea is central. Symmetrical expansion. Lung samson clear to auscultation and percussion. CARDIAC: Normal S1, S2 with no gallops. No murmurs ABDOMEN: Soft. Bowel sounds normal. No organomegaly. No abdominal bruits. Extremities: reveal no edema. No clubbing or cyanosisLeft second toe swelling and redness. Neurologically awake, alert, oriented x3 with well-coordinated movements. No focal deficits noted Skin: No rash or skin lesions. Psychiatric: Coperative. Nonsuicidal Musculoskeletal: No joint swelling or deformity. Normal range of motion. - Labs CBC & Chem 7: 07/19/21 05:09 07/19/21 16:12 Labs: Abnormal Lab Results - Last 24 Hours (Table) 07/19/21 07/19/21 07/19/21 Range/Units 05:09 05:09 07:27 Plt Count 147 L (150-450) k/uL Chloride 110 H (96-109) mmol/L Est GFR (CKD-EPI)NonAf 59.2 L (60.0-200.0) POC Glucose (mg/dL) 62 L (75-99) mg/dL 07/19/21 Range/Units 07:45 Plt Count (150-450) k/uL Chloride (96-109) mmol/L Est GFR (CKD-EPI)NonAf (60.0-200.0) POC Glucose (mg/dL) 66 L (75-99) mg/dL Microbiology - Last 24 Hours (Table) 07/13/21 23:45 Blood Culture - Preliminary Blood No Growth after 120 hours 07/13/21 23:30 Blood Culture - Preliminary Blood No Growth after 120 hours Assessment and Plan Assessment: Acute nonhealing ulcer of the left second toe status post debridement. Awaiting deep wound cultures. Left second toe gangrene. Rule out peripheral vascular disease Acute kidney injury possible ATN. Present on admission Diabetes type 2 Hypertension Hyperlipidemia History of [place] Gout History of cardiac disease status post CABG Obesity with BMI 38.8 Plan: Patient is being continued on antibiotics in the form of Ceftriaxone and Flagyl. . Follow blood sugars closely and titrate insulin dose. Follow-up culture reports. ID is on board.
[2021-07-20] MEDS: AMPICILLIN-SULBACTAM 3 GM in SODIUM CHLORIDE 0.9% 100 ML IVPB SCH ×4 (00:37→17:31)
[2021-07-20] MEDS: SODIUM CHLORIDE 0.9% 1,000 ML IV SCH ×2 (02:42→05:48)
[2021-07-20 03:30] LABS: Glucose,Whole Blood 82 mg/dL (75-99)
[2021-07-20 07:18] LABS: Glucose,Whole Blood 82 mg/dL (75-99)
[2021-07-20] MEDS: HEPARIN SODIUM,PORCINE/PF 5,000 UNIT/0.5 ML SYRINGE SQ SCH ×2 (07:59→20:39)
[2021-07-20] MEDS: GLIMEPIRIDE 1 MG TAB PO SCH ×2 (07:59→08:21)
[2021-07-20] MEDS: allopurinoL 300 MG TAB PO SCH (07:59)
[2021-07-20] MEDS: EZETIMIBE 10 MG TAB PO SCH (07:59)
[2021-07-20] MEDS: ASPIRIN 81 MG PO SCH (07:59)
[2021-07-20] MEDS: METOPROLOL TARTRATE 25 MG TAB PO SCH ×3 (07:59→20:44)
[2021-07-20] MEDS: PANTOPRAZOLE 40 MG TABLET PO SCH (07:59)
[2021-07-20] MEDS: MULTIVITAMINS, THERA 1 EACH TAB PO SCH (08:00)
[2021-07-20] MEDS: PIOGLITAZONE 30 MG TAB PO SCH ×2 (08:00→08:21)
[2021-07-20] MEDS: INSULIN ASPART (NovoLOG) 100 UNIT/ML VIAL SQ SCH ×4 (08:01→20:41)
[2021-07-20] MEDS: Empagliflozin [Jardiance] PO SCH (08:02)
[2021-07-20] MEDS ORDERED: LIDOCAINE 1% INJ 10MG/ML (20 ML MDV) ONE (09:55)
[2021-07-20] MEDS ORDERED: LIDOCAINE 1% INJ 10MG/ML (20 ML MDV) SQ ONE (10:10)
[2021-07-20 12:05] LABS: Glucose,Whole Blood 98 mg/dL (75-99)
[2021-07-20] MEDS: ACETAMINOPHEN TAB 500 MG TAB PO PRN (12:40)
--- NOTE | 2021-07-20 13:26 | IR ---
PICC LINE PLACEMENT: HISTORY: Infection requiring long-term antibiotic therapy PROCEDURE: Ultrasound and fluoroscopic guidance of PICC line placement. COMPLICATIONS: None ANESTHESIA: 1. 1% Lidocaine locally. FINDINGS/TECHNIQUE: The procedure was explained to the patient. The risks, complications, benefits and alternatives were discussed and any questions were answered. Informed consent was obtained. The patient was placed supine on the fluoroscopic table and prepped and draped in the usual sterile fash ion. Utilizing a 21 gauge needle and sonographic and fluoroscopic guidance, access in the left basi lic vein was achieved and there is placement of a 0.018 guidewire. The vein is patent. A 4-F sheath was placed over the guidewire. The guidewire and dilator were removed and a 4-F. PICC line was plac ed through the sheath with the tip at the level of the SVC. The sheath was removed, the catheter was flushed and sutured into position. The patient was stable throughout the procedure and remained sta ble upon discharge from the Department of Radiology. The vein puncture was patent under ultrasound. A aquino scale image was obtained to document patency of the vein punctured. All elements of the maximal barrier technique were utilized. FLUOROSCOPY TIME: 0.1 minutes and one images submitted IMPRESSION: Successful PICC line placement under ultrasound and fluoroscopic guidance.
[2021-07-20 14:14] VITALS: BMI 38.2
--- NOTE | 2021-07-20 16:18 | P.PN ---
Subjective Progress Note Date: 07/20/21 Patient is a 76-year-old male was admitted to the hospital with osteomyelitis of the second toe. Deep wound cultures were taken. Final culture report is pending. Otherwise patient denied any complaints of chest pain or shortness of. Foot pain is controlled with medications. Patient is on antibiotics involve Unasyn. ID is on board. 07/19/2021 Patient is currently resting in the chair comfortably. Left foot pain is better. No complaints of chest pain or shortness of breath. No nausea vomiting abdominal pain or diarrhea. Laboratory data reviewed and blood sugar is better controlled. Patient has been counseled on antibiotics involve Unasyn. Changed to ceftriaxone and Flagyl. ID is on board. Follow-up with cultures and final ID recommendations. 07/20/2021 Patient is seen and evaluated and follow-up currently maintained on IV ceftriaxone along with Flagyl with infectious disease following closely. Cultures remain negative. Patient has received a PICC line and awaiting [place] assisted home care in order to arrange for IV antibiotic therapy to be taught in the home care setting. Case management following and working on discharge planning needs. Patient is aware we are awaiting [place] authorization for the IV antibiotic therapy. Review of systems: Constitutional: No reports of fatigue, fever, or chills Cardiovascular: No reports of chest pain or palpitations Respiratory: No reports of shortness of breath or cough GI: No reports of nausea, vomiting, or diarrhea : No reports of dysuria or retention Neurovascular: No reports of weakness or numbness All medications have been reviewed Active Medications Acetaminophen (Acetaminophen Tab 500 Mg Tab) 500 mg PO Q6HR PRN PRN Reason: Fever and/ or Pain Last Admin: 07/20/21 12:40 Dose: 500 mg Documented by: Allopurinol (Allopurinol 300 Mg Tab) 300 mg PO DAILY [facility] Last Admin: 07/20/21 07:59 Dose: 300 mg Documented by: Aspirin (Aspirin 81 Mg) 81 mg PO DAILY [facility] Last Admin: 07/20/21 07:59 Dose: 81 mg Documented by: Atorvastatin Calcium (Atorvastatin 40 Mg Tab) 40 mg PO HS [facility] Last Admin: 07/19/21 20:53 Dose: 40 mg Documented by: Ezetimibe (Ezetimibe 10 Mg Tab) 10 mg PO DAILY [facility] Last Admin: 07/20/21 07:59 Dose: 10 mg Documented by: Ergocalciferol (Ergocalciferol 1,250 Mcg (50,000 Iu) Capsule) 1,250 mcg PO Q30D [facility] Last Admin: 07/19/21 08:05 Dose: 1,250 mcg Documented by: Glimepiride (Glimepiride 1 Mg Tab) 1 mg PO DAILY [facility] Last Admin: 07/20/21 08:21 Dose: Not Given Documented by: Heparin Sodium (Porcine) (Heparin Sodium,Porcine/Pf 5,000 Unit/0.5 Ml Syringe) 5,000 unit SQ Q12HR [facility] Last Admin: 07/20/21 07:59 Dose: 5,000 unit Documented by: Sodium Chloride (Saline 0.9%) 1,000 mls @ 75 mls/hr IV .[id number] [facility] Last Admin: 07/20/21 05:48 Dose: 75 mls/hr Documented by: Ampicillin Sodium/Sulbactam (Sodium 3 gm/ Sodium Chloride) 100 mls @ 200 mls/hr IVPB Q6HR [facility] Last Admin: 07/20/21 12:27 Dose: 200 mls/hr Documented by: Insulin Aspart (Insulin Aspart (Novolog) 100 Unit/Ml Vial) 0 unit SQ ACHS [facility]; Protocol Last Admin: 07/20/21 12:29 Dose: Not Given Documented by: Metoprolol Tartrate (Metoprolol Tartrate 25 Mg Tab) 25 mg PO BID [facility] Last Admin: 07/20/21 07:59 Dose: 25 mg Documented by: Multivitamins (Multivitamins, Thera 1 Each Tab) 1 each PO DAILY [facility] Last Admin: 07/20/21 08:00 Dose: 1 each Documented by: Naloxone HCl (Naloxone 0.4 Mg/Ml 1 Ml Vial) 0.2 mg IV Q2M PRN PRN Reason: Opioid Reversal Nitroglycerin (Nitroglycerin Sl Tabs 0.4 Mg Tab) 0.4 mg SUBLINGUAL Q5M PRN PRN Reason: Chest Pain Empagliflozin [ (Jardiance]) 10 mg PO DAILY [facility] Last Admin: 07/20/21 08:02 Dose: Not Given Documented by: Pantoprazole Sodium (Pantoprazole 40 Mg Tablet) 40 mg PO AC-BRKFST [facility] Last Admin: 07/20/21 07:59 Dose: 40 mg Documented by: Pioglitazone HCl (Pioglitazone 30 Mg Tab) 30 mg PO DAILY [facility] Last Admin: 07/20/21 08:21 Dose: Not Given Documented by: Objective - Vital Signs Vital signs: Vital Signs Temp 97.7 F 07/20/21 07:17 Pulse 60 07/20/21 07:17 Resp 16 07/20/21 07:17 BP 151/61 07/20/21 07:17 Pulse Ox 97 07/20/21 04:30 Intake & Output 07/19/21 07/20/21 07/20/21 18:59 06:59 18:59 Intake Total 100 Balance 100 Intake: Oral 100 Other: Voiding Method Toilet Toilet Toilet # Voids 1 - Exam Patient is sitting up in the chair, awake alert and oriented.. HEENT: Normocephalic. Neck is supple. Pupils reactive. Nostrils clear. Oral cavi ty is moist. Neck reveals no JVD, carotid bruits, or thyromegaly. CHEST EXAMINATION: Trachea is central. Symmetrical expansion. Lung samson clear to auscultation and percussion. CARDIAC: Normal S1, S2 with no gallops. No murmurs ABDOMEN: Soft. Bowel sounds normal. No organomegaly. No abdominal bruits. Extremities: reveal no edema. No clubbing or cyanosis Left second toe swelling and redness which has decreased. Neurologically awake, alert, oriented x3 with well-coordinated movements. No f ocal deficits noted Skin: No rash or skin lesions. Psychiatric: Cooperative. Non-suicidal Musculoskeletal: No joint swelling or deformity. Normal range of motion. - Labs CBC & Chem 7: 07/19/21 05:09 07/19/21 16:12 Labs: Microbiology - Last 24 Hours (Table) 07/13/21 23:30 Blood Culture - Final Blood No Growth after 144 hours 07/13/21 23:45 Blood Culture - Final Blood No Growth after 144 hours 07/15/21 14:45 Anaerobic Culture - Final Toe - Left Second Assessment and Plan Assessment: Acute non-healing ulcer of the left second toe status post debridement. Awaiting deep wound cultures. Cultures remain negative Left second toe gangrene. Rule out peripheral vascular disease Acute kidney injury possible ATN. Present on admission Diabetes type 2 Hypertension Hyperlipidemia History of [place] Gout History of cardiac disease status post CABG Obesity with BMI 38.8 Full code Plan: Recommend patient to continue with IV antibiotics in the form of ceftriaxone and Flagyl. Cultures remain negative and infectious disease following closely. Patient has received a PICC line in case management also working on discharge planning needs as the patient has [facility] insurance and needs Homecare and teaching in regards to IV antibiotic therapy. A[facility] through the [facility]. He is aware. Continue with local wound care. Prognosis is guarded. Further recommendations to follow based on the clinical course of the patient.
[2021-07-20 17:07] LABS: Glucose,Whole Blood 127 mg/dL (75-99)
--- NOTE | 2021-07-20 19:30 | PN ---
PROGRESS NOTE DATE OF SERVICE: 07/20/2021 REASON FOR FOLLOWUP: Left second toe gangrene and osteomyelitis. INTERVAL HISTORY: The patient is afebrile. The patient is breathing comfortably. Denies having any chest pain, shortness of breath or cough. No abdominal pain or pain to the left foot area. PHYSICAL EXAMINATION: Blood pressure 136/66, pulse of 60, temperature is 97.6. He is 95% on room air. General description is an elderly male up in the chair in no distress. Respiratory system: Unlabored breathing, clear to auscultation anteriorly. Heart S1, S2. Regular rate and rhythm. Abdomen soft, no tenderness. Left foot is currently dressed. LABS: Culture has been negative so far. DIAGNOSTIC IMPRESSION AND PLAN: Patient with left second toe diabetic foot infection with underlying osteomyelitis, status post debridement. Culture negative for resistant pathogen. He is on Unasyn that will be transitioned to Rocephin 2 grams daily on oral Flagyl. Local wound care with Aquacel Silver dressing. Family has multiple questions. Those were answered. MMODL / IJN: [id number] /
[2021-07-20 19:46] VITALS: RESP 20
[2021-07-20 20:32] LABS: Glucose,Whole Blood 90 mg/dL (75-99)
[2021-07-20] MEDS: ATORVASTATIN 40 MG TAB PO SCH (20:40)
[2021-07-21] MEDS: AMPICILLIN-SULBACTAM 3 GM in SODIUM CHLORIDE 0.9% 100 ML IVPB SCH ×3 (00:25→12:36)
[2021-07-21] MEDS: SODIUM CHLORIDE 0.9% 1,000 ML IV SCH (01:30)
[2021-07-21 04:23] VITALS: BP 135/79; PULSE 66; TEMP 98.2
[2021-07-21 07:14] LABS: Glucose,Whole Blood 92 mg/dL (75-99)
[2021-07-21] MEDS: INSULIN ASPART (NovoLOG) 100 UNIT/ML VIAL SQ SCH ×2 (07:21→12:36)
[2021-07-21] MEDS: MULTIVITAMINS, THERA 1 EACH TAB PO SCH (08:05)
[2021-07-21] MEDS: allopurinoL 300 MG TAB PO SCH (08:05)
[2021-07-21] MEDS: HEPARIN SODIUM,PORCINE/PF 5,000 UNIT/0.5 ML SYRINGE SQ SCH (08:05)
[2021-07-21] MEDS: PANTOPRAZOLE 40 MG TABLET PO SCH (08:06)
[2021-07-21] MEDS: ASPIRIN 81 MG PO SCH (08:06)
[2021-07-21] MEDS: EZETIMIBE 10 MG TAB PO SCH (08:06)
[2021-07-21] MEDS: GLIMEPIRIDE 1 MG TAB PO SCH (08:06)
[2021-07-21] MEDS: METOPROLOL TARTRATE 25 MG TAB PO SCH (08:06)
[2021-07-21] MEDS: PIOGLITAZONE 30 MG TAB PO SCH (08:06)
[2021-07-21] MEDS: Empagliflozin [Jardiance] PO SCH (08:07)
[2021-07-21 11:04] LABS: Basophils % (A) 1 %; Eosinophils # (A) 0.3 k/uL (0-0.7); Eosinophils % (A) 4 %; HCT 37.8 % (39.0-53.0); HGB 12.5 gm/dL (13.0-17.5); Lymphocytes # (A) 1.5 k/uL (1.0-4.8); Lymphocytes % (A) 24 %; MCH 31.3 pg (25.0-35.0); MCV 94.9 fL (80.0-100.0); Mean Platelet Volume 9.1; Monocytes # (A) 0.4 k/uL (0-1.0); Monocytes % (A) 6 %; Neutrophils # (A) 3.9 k/uL (1.3-7.7); Neutrophils % (A) 64 %; Platelet Count 116 k/uL (150-450); RBC 3.98 m/uL (4.30-5.90); WBC 6.1 k/uL (3.8-10.6)
[2021-07-21 11:17] LABS: African American GFR (CKD) 80 (>60 ml/min/1.73 sqM); Anion Gap 5 mmol/L; Blood Urea Nitrogen 16 mg/dL (9-20); Calcium 8.8 mg/dL (8.4-10.2); Carbon Dioxide 24 mmol/L (22-30); Chloride 108 mmol/L (98-107); Glucose 159 mg/dL (74-99); Non-African American GFR(CKD) 69 (>60 ml/min/1.73 sqM); Potassium 3.9 mmol/L (3.5-5.1); Sodium 137 mmol/L (137-145)
[2021-07-21] MEDS ORDERED: FUROSEMIDE 40 MG TAB PO STA (12:28)
[2021-07-21 13:21] LABS: Glucose,Whole Blood 91 mg/dL (75-99)
--- NOTE | 2021-07-21 13:24 | PN ---
PROGRESS NOTE DATE OF SERVICE: 07/21/2021 REASON FOR FOLLOWUP: Left second toe osteomyelitis. INTERVAL HISTORY: Patient is currently afebrile. Patient is breathing comfortably. The patient denies having any chest pain. No shortness of breath, cough, no abdominal pain or diarrhea. EXAMINATION: Blood pressure 135/79 with pulse of 73, temperature 98.2. He is 98% on room air. General description is an elderly male up in the chair in no distress. Respiratory system: Unlabored breathing, clear to auscultation anteriorly. Heart S1, S2. Regular rate and rhythm. Abdomen soft, no tenderness. Left foot is currently dressed. No drainage on the dressing. LABS: Hemoglobin is 12.1, white count 6.1, BUN of 16, creatinine 1.36. DIAGNOSTIC IMPRESSION AND PLAN: Patient with left second toe chronic nonhealing wound with secondary osteomyelitis, status post debridement. Culture has been negative for resistant pathogen. Plan is to finish therapy with IV Rocephin oral Flagyl. Local wound care with Aquacel silver dressing and follow up with the [facility]. MMODL / IJN: [id number] /
--- NOTE | 2021-07-21 15:12 | P.DS ---
Providers Date of admission: 07/13/21 17:28 Expected date of discharge: 07/21/21 Attending physician: Vikki Gandara Consults: 07/13/21 17:29 Consult Physician Urgent Consulting Provider: Juliette Dominguez Consult Reason/Comments: acute 2nd toe osteomyelitis, failed o/p tx Do you want consulting provider notified?: Yes 07/13/21 17:30 Consult Physician Urgent Consulting Provider: Hernandez Javed Consult Reason/Comments: acute 2nd toe osteomyelitis, failed o/p tx Do you want consulting provider notified?: Yes Primary care physician: [facility] Hospital Course: Final diagnosis Acute non-healing ulcer of the left second toe status post debridement. Cultures remain negative Left second toe gangrene. Rule out peripheral vascular disease Acute kidney injury possible ATN. Present on admission Diabetes type 2 Hypertension Hyperlipidemia History of [place] Gout History of cardiac disease status post CABG Obesity with BMI 38.8 Full code Discharge disposition Patient is being discharged in a stable condition with guarded prognosis to home. Patient will follow-up with [facility] upon discharge. Patient will continue on oral antibiotics in the form of vaginal 500 mg 3 times daily along with IV ceftriaxone 2 g daily for a period of 6 weeks. Patient to follow-up with infectious disease Dr. Dominguez at the wound care center in 1-2 weeks. Patient to continue with Lasix dosing at home and recommended close outpatient follow-up with repeat labs and primary care follow-up on discharge. Total time taken is greater than 35 minutes. Hospital course Patient is a 76-year-old male was admitted to the hospital with osteomyelitis of the second toe. Deep wound cultures were taken. Final culture report is pending. Otherwise patient denied any complaints of chest pain or shortness of. Foot pain is controlled with medications. Patient is on antibiotics involve Unasyn. ID is on board. 07/19/2021 Patient is currently resting in the chair comfortably. Left foot pain is better. No complaints of chest pain or shortness of breath. No nausea vomiting abdominal pain or diarrhea. Laboratory data reviewed and blood sugar is better controlled. Patient has been counseled on antibiotics involve Unasyn. Changed to ceftriaxone and Flagyl. ID is on board. Follow-up with cultures and final ID recommendations. 07/20/2021 Patient is seen and evaluated and follow-up currently maintained on IV ceftriaxone along with Flagyl with infectious disease following closely. Cultures remain negative. Patient has received a PICC line and awaiting [place] assisted home care in order to arrange for IV antibiotic therapy to be taught in the home care setting. Case management following and working on discharge planning needs. Patient is aware we are awaiting [place] authorization for the IV antibiotic therapy. 07/21/2021 Patient is seen in follow-up this morning no acute overnight issues. IV antibiotics are being arranged along with home care through the [place] and [facility] will be following the patient. Patient has received a PICC line and will be continued on 2 g of Rocephin along with oral Flagyl for the next 6 weeks and close outpatient follow-up at the wound care center. Patient having some increasing edema noted of bilateral lower extremities and has been off of his Lasix that he normally takes 80 mg a day and will give a dose of Lasix of 40 mg and instructed the patient to resume and take his normal dose at night. Recommend close outpatient follow-up with repeat labs and primary care follow- up. Patient also to continue with lower extremity compression stockings and elevating them while at rest. Patient takes metoprolol 25 mg twice daily and has been having a few episodes of lower heart rate and recommend to decrease the dose to 12.5 mg twice daily and instructed the patient to monitor heart rate and keep a diary for primary care follow-up along with his auto wash buffer which he states he has an appointment this week with. Instructed the patient to keep the appointment with cardiology. Currently no reports of chest pain, shortness of breath, or palpitations. Patient is afebrile. No reports of nausea or vomiting and patient is tolerating diet. Patient will be discharged home today with home care arranged by the [place]. On exam vital signs are stable. Cardio S1, S2 are muffled. Respiratory shows diminished breath sounds at the bases with no wheezing or rhonchi noted. Abdomen is soft and nontender. Nervous system shows no focal deficits. Please refer to medication reconciliation sheet for a list of medications. Patient Condition at Discharge: Stable Plan - Discharge Summary Discharge Rx Participant: No New Discharge Prescriptions: New metroNIDAZOLE [Flagyl] 500 mg PO Q8HR #90 tab cefTRIAXone [Rocephin] 2,000 mg IVP Q24HR #42 each RX: Metoprolol Tartrate [Lopressor] 12.5 mg PO BID 15 Days #30 tablet RX: Acetaminophen Tab [Tylenol] 500 mg PO Q6HR PRN tab PRN Reason: Fever And/ Or Pain Continue RX: Multivitamins, Thera [Multivitamin (formulary)] 1 tab PO DAILY RX: Atorvastatin [Lipitor] 40 mg PO HS RX: Pantoprazole Sodium 40 mg PO DAILY RX: Glimepiride [Amaryl] 1 mg PO DAILY RX: allopurinoL [Zyloprim] 300 mg PO DAILY RX: Pioglitazone [Actos] 30 mg PO DAILY RX: Furosemide [Lasix] 80 mg PO DAILY RX: [place]-3 Fatty Acids/Fish Oil [Fish Oil 1,000 mg Softgel] 2 cap PO DAILY RX: Ezetimibe [Zetia] 10 mg PO DAILY RX: Ergocalciferol [Vitamin D2 (1250 Mcg = 63201 Iu)] 1,250 mcg PO Q30D RX: Empagliflozin [Jardiance] 10 mg PO DAILY RX: Aspirin EC [Ecotrin Low Dose] 81 mg PO DAILY RX: Nitroglycerin Sl Tabs [Nitrostat] 0.4 mg SL Q5M PRN PRN Reason: Chest Pain Discontinued RX: lisinopriL 20 mg PO DAILY Sulfamethox-Tmp 800-160Mg [Bactrim Ds] 1 tab PO Q12H Metoprolol Tartrate [Lopressor] 25 mg PO BID Discharge Medication List RX: Atorvastatin [Lipitor] 40 mg PO HS 06/28/17 [History] RX: Glimepiride [Amaryl] 1 mg PO DAILY 06/28/17 [History] RX: Multivitamins, Thera [Multivitamin (formulary)] 1 tab PO DAILY 06/28/17 [History] RX: Pantoprazole Sodium 40 mg PO DAILY 06/28/17 [History] RX: allopurinoL [Zyloprim] 300 mg PO DAILY 06/28/17 [History] RX: Pioglitazone [Actos] 30 mg PO DAILY 11/11/19 [History] RX: Furosemide [Lasix] 80 mg PO DAILY 11/12/19 [History] RX: Aspirin EC [Ecotrin Low Dose] 81 mg PO DAILY 07/13/21 [History] RX: Empagliflozin [Jardiance] 10 mg PO DAILY 07/13/21 [History] RX: Ergocalciferol [Vitamin D2 (1250 Mcg = 85379 Iu)] 1,250 mcg PO Q30D 07/13/21 [History] RX: Ezetimibe [Zetia] 10 mg PO DAILY 07/13/21 [History] RX: Nitroglycerin Sl Tabs [Nitrostat] 0.4 mg SL Q5M PRN 07/13/21 [History] RX: [place]-3 Fatty Acids/Fish Oil [Fish Oil 1,000 mg Softgel] 2 cap PO DAILY 07/13/21 [History] cefTRIAXone [Rocephin] 2,000 mg IVP Q24HR #42 each 07/20/21 [Rx] metroNIDAZOLE [Flagyl] 500 mg PO Q8HR #90 tab 07/20/21 [Rx] RX: Acetaminophen Tab [Tylenol] 500 mg PO Q6HR PRN tab 07/21/21 [Rx] RX: Metoprolol Tartrate [Lopressor] 12.5 mg PO BID 15 Days #30 tablet 07/21/21 [Rx] Follow up Appointment(s)/Ref[facility] - 1 Week Juliette Dominguez MD [STAFF PHYSICIAN] - 08/10/21 2:15 pm [facility] [Primary Care Provider] - 07/23/21 2:00 pm Patient Instructions/Handouts: Metoprolol (By mouth), Metronidazole (By mouth), Ceftriaxone (By injection), Osteomyelitis (DC), Debridement (DC), Type 2 Diabetes in the Older Adult (DC), Peripherally Inserted Central Catheters and Midline Catheters (DC) Activity/Diet/Wound Care/Special Instructions: Manuelito Fusion Activity Limited until follow-up Continue heart healthy cardiac diet Continue with metoprolol 12.5 mg twice daily and monitor heart rate closely keep a diary of readings for primary and cardiology follow-up Keep cardiology appointment next week Continue with IV antibiotics per infectious disease Continue with oral antibiotics until finished and take with meals Continue using compression stockings and monitor the legs for any further reddening, drainage, or irritation Resume Lasix dose Hold lisinopril until cardiology appointment to discuss Use non-adherent pad to the brewer at the area of blistering and monitor for any worsening, continue with bacitracin on the small blisters Continue to elevate lower extremities while at rest Continue with home care follow up with primary care provider on discharge Follow-up the wound care center with Dr. Dominguez in 1-2 weeks Discharge Disposition: HOME WITH HOME HEALTH SERVICES
--- NOTE | 2021-07-28 13:45 | P.ARTDOP ---
Arterial Doppler LOWER EXTREMITY ARTERIAL DOPPLER: DATE OF SERVICE: 07/14/2021 Reason for study: Ulcer left foot. Doppler waveforms: Multiphasic to the dorsalis pedis on both sides. Digital waveforms are monophasic on the right and somewhat blunted on the left.. Pulse volume recording: []. Pressure gradients: Only at the foot level. 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 Suspect distal disease but perfusion pressures probably adequate for healing. Clinical correlation recommended.
== END 2021-07-21 14:25 | disposition home health service (06) | DRG 623 ==
LOC: EC 14:59 → 5NMEDONC 17:28
PROVIDERS: ADMIT Hospitalist; ATTEND Hospitalist
PROC: 0JBR0ZZ Excision of Left Foot Subcutaneous Tissue and Fascia, Open Approach (ICD-10-PCS; principal; 2021-07-15 13:30)
PROC: 02HV33Z Insertion of Infusion Device into Superior Vena Cava, Percutaneous Approach (ICD-10-PCS; 2021-07-20)
DX: E11.69 Type 2 diabetes mellitus with other specified complication (principal); E11.52 Type 2 diabetes mellitus with diabetic peripheral angiopathy with gangrene; M86.9 Osteomyelitis, unspecified; E11.621 Type 2 diabetes mellitus with foot ulcer; E11.628 Type 2 diabetes mellitus with other skin complications; E66.9 Obesity, unspecified; E78.5 Hyperlipidemia, unspecified; I10 Essential (primary) hypertension; I25.10 Atherosclerotic heart disease of native coronary artery without angina pectoris; I25.2 Old myocardial infarction; L97.524 Non-pressure chronic ulcer of other part of left foot with necrosis of bone; M10.9 Gout, unspecified; Z68.38 Body mass index [BMI] 38.0-38.9, adult; Z79.2 Long term (current) use of antibiotics; Z79.82 Long term (current) use of aspirin; Z79.84 Long term (current) use of oral hypoglycemic drugs; Z79.899 Other long term (current) drug therapy; Z83.3 Family history of diabetes mellitus; Z87.442 Personal history of urinary calculi; Z95.1 Presence of aortocoronary bypass graft; Z96.653 Presence of artificial knee joint, bilateral; Z82.49 Family history of ischemic heart disease and other diseases of the circulatory system; N17.0 Acute kidney failure with tubular necrosis
CPT/HCPCS: 36415; 36573; 78315; 80048; 80053; 80202; 82565; 83605; 85025; 85652; 86140; 87040; 87070; 87075; 87102; 87205; 93922; 94760; 99284

== ENCOUNTER 2023-10-04 09:56 | Emergency (ER) | payer OTHER ==
[2023-10-04] MEDS ORDERED: SODIUM CHLORIDE 0.9% 1,000 ML IV STA (11:10)
[2023-10-04] MEDS ORDERED: MORPHINE SULFATE 4 MG/ML SYRINGE IVP STA (11:11)
--- NOTE | 2023-10-04 11:14 | ED ---
General Adult HPI - General Chief complaint: Urogenital Stated complaint: Kidney Stones Time Seen by Provider: 10/04/23 10:39 Source: patient Mode of arrival: ambulatory Limitations: no limitations - History of Present Illness Initial comments: 78-year-old male presenting to the ED with a chief complaint of back pain. Patient states for the last 2 months has had "twinges" of left lower back pain. Last night, states drastic worsening of symptoms. Notes history of kidney stones and states pain feels similar. Denies urinary symptoms however patient notes history of 6 stones and notes that he only had urinary symptoms for one of them. Patient notes some nausea last night however now improved. No changes in bowel habits. No chest pain or shortness of breath. Denies fever or chills. No other complaints. - Related Data Home Medications Medication Instructions Recorded Confirmed Atorvastatin [Lipitor] 40 mg PO HS 06/28/17 07/13/21 Glimepiride [Amaryl] 1 mg PO DAILY 06/28/17 07/13/21 Multivitamins, Thera [Multivitamin 1 tab PO DAILY 06/28/17 07/13/21 (formulary)] Pantoprazole Sodium 40 mg PO DAILY 06/28/17 07/13/21 allopurinoL [Zyloprim] 300 mg PO DAILY 06/28/17 07/13/21 Pioglitazone [Actos] 30 mg PO DAILY 11/11/19 07/13/21 Furosemide [Lasix] 80 mg PO DAILY 11/12/19 07/13/21 Aspirin EC [Ecotrin Low Dose] 81 mg PO DAILY 07/13/21 07/13/21 Empagliflozin [Jardiance] 10 mg PO DAILY 07/13/21 07/13/21 Ergocalciferol [Vitamin D2 (1250 1,250 mcg PO Q30D 07/13/21 07/13/21 Mcg = 94919 Iu)] Ezetimibe [Zetia] 10 mg PO DAILY 07/13/21 07/13/21 Nitroglycerin Sl Tabs [Nitrostat] 0.4 mg SL Q5M PRN 07/13/21 07/13/21 [place]-3 Fatty Acids/Fish Oil [Fish 2 cap PO DAILY 07/13/21 07/13/21 Oil 1,000 mg Softgel] Previous Rx's Medication Instructions Recorded cefTRIAXone [Rocephin] 2,000 mg IVP Q24HR #42 each 07/20/21 metroNIDAZOLE [Flagyl] 500 mg PO Q8HR #90 tab 07/20/21 Acetaminophen Tab [Tylenol] 500 mg PO Q6HR PRN tab 07/21/21 Metoprolol Tartrate [Lopressor] 12.5 mg PO BID 15 Days #30 tablet 07/21/21 Allergies Allergy/AdvReac Type Severity Reaction Status Date / Time hazelnut Allergy Anaphylaxis Verified 10/04/23 10:07 Review of Systems ROS Statement: Those systems with pertinent positive or pertinent negative responses have been documented in the HPI. ROS Other: All systems not noted in ROS Statement are negative. Past Medical History Past Medical History: Diabetes Mellitus, Hyperlipidemia, Hypertension, Myocardial Infarction (VT) Additional Past Medical History / Comment(s): GOUT. HX: CELLULITIS POST RIGHT KNEE SCOPE (STREP). MRSA OF RIGHT BIG TOE. Coronary artery disease with previous CABG 3 vessel, myocardial infarction, kidney stones Last Myocardial Infarction Date:: 25 years ago History of Any Multi-Drug Resistant Organisms: MRSA Date of last positivie culture/infection: 05/09/10 MDRO Source:: RIGHT BIG TOE. Past Surgical History: Coronary Bypass/CABG, Heart Catheterization, Orthopedic Surgery, Tonsillectomy Additional Past Surgical History / Comment(s): BILATERAL KNEE REPLACEMENT. Past Anesthesia/Blood Transfusion Reactions: No Reported Reaction Past Psychological History: No Psychological Hx Reported Smoking Status: Never smoker Past Alcohol Use History: None Reported Past Drug Use History: None Reported - Past Family History Mother Family Medical History: Coronary Artery Disease (CAD), Diabetes Mellitus Father Family Medical History: Coronary Artery Disease (CAD), Diabetes Mellitus General Exam Limitations: no limitations General appearance: alert, in no apparent distress Neck exam: Present: normal inspection Respiratory exam: Present: normal lung sounds bilaterally Cardiovascular Exam: Present: regular rate, normal rhythm GI/Abdominal exam: Present: soft (Left CVA tenderness to percussion. No rebound guarding or rigidity.), normal bowel sounds Neurological exam: Present: alert, oriented X3 Skin exam: Present: warm, dry Course Vital Signs 10/04/23 10/04/23 10/04/23 10:04 10:40 11:35 Temperature 98.3 F 97.9 F Pulse Rate 59 L 55 L 65 Respiratory 18 20 18 Rate Blood Pressure 160/73 119/52 127/62 O2 Sat by Pulse 99 100 99 Oximetry 10/04/23 13:31 Temperature 98.0 F Pulse Rate 51 L Respiratory 18 Rate Blood Pressure 124/72 O2 Sat by Pulse 99 Oximetry Medical Decision Making - Medical Decision Making Was pt. sent in by a medical professional or institution (, TATY, CELL LINER, urgent care, hospital, or long-term...) When possible be specific @ -No Did you speak to anyone other than the patient for history (EMS, parent, family, police, friend...)? What history was obtained from this source @ -No Did you review nursing and triage notes (agree or disagree)? Why? @ -I reviewed and agree with nursing and triage notes Were old charts reviewed (outside hosp., previous admission, EMS record, old EKG, old radiological studies, urgent care reports/EKG's, long-term records)? Report findings @ -No old charts were reviewed Differential Diagnosis (chest pain, altered mental status, abdominal pain women, abdominal pain men, vaginal bleeding, weakness, fever, dyspnea, syncope, headache, dizziness, GI bleed, back pain, seizure, CVA, palpatations, mental health, musculoskeletal)? @ -Differential Abdominal Pain Men: Appendicitis, cholecystitis, diverticulosis, ischemic bowel, pancreatitis, hepatitis, UTI, gastroenteritis, AAA, incarcerated hernia, bowel obstruction, constipation, inflammatory bowel, hepatitis, peptic ulcer disease, splenic infarction, perforated viscus, testicular torsion, this is not meant to be an all-inclusive list EKG interpreted by me (3pts min.). @ -As above X-rays interpreted by me (1pt min.). @ -None done CT interpreted by me (1pt min.). @ -CT abdomen and pelvis interpreted by me has findings consistent with diverticulitis U/S interpreted by me (1pt. min.). @ -None done What testing was considered but not performed or refused? (CT, X-rays, U/S, labs)? Why? @ -None What meds were considered but not given or refused? Why? @ -None Did you discuss the management of the patient with other professionals (professionals i.e. , TATY, CELL LINER, lab, RT, psych nurse, social media community manager, caseworker protective services, teacher, tactical debriefer officer, hospice case manager)? Give summary @ -No Was smoking cessation discussed for >3mins.? @ -No Was critical care preformed (if so, how long)? @ -No Were there social determinants of health that impacted care today? How? (Homelessness, low income, unemployed, alcoholism, drug addiction, transportation, low edu. Level, literacy, decrease access to med. care, group home, rehab)? @ -No Was there de-escalation of care discussed even if they declined (Discuss DNR or withdrawal of care, Hospice)? DNR status @ -No What co-morbidities impacted this encounter? (DM, HTN, Smoking, COPD, CAD, Cancer, CVA, ARF, Chemo, Hep., AIDS, mental health diagnosis, sleep apnea, morbid obesity)? @ -None Was patient admitted / discharged? Hospital course, mention meds given and route, prescriptions, significant lab abnormalities, going to OR and other pertinent info. @ -Discharge Patient presented to the ED with a complaint of left back/abdominal pain. Laboratory studies significant for an amylase elevated 146, lipase elevated at 4445. CBC unremarkable. Urine has no evidence of infection. Symptoms consistent with diverticulitis. At this time, patient does not admit to any epigastric pain. Patient discharged home in stable condition with prescription for Augmentin and advised follow-up with his PCP/Candy Attendant. Advised follow-up of notable findings, namely elevated lipase and amylase. Also known to have severe atherosclerosis and advised follow-up with cardiology. Discussed return precautions with patient who verbalizes agreement. Undiagnosed new problem with uncertain prognosis? @ -No Drug Therapy requiring intensive monitoring for toxicity (Heparin, Nitro, Insulin, Cardizem)? @ -No Were any procedures done? @ -No Diagnosis/symptom? @ -Diverticulitis Acute, or Chronic, or Acute on Chronic? @ -Acute Uncomplicated (without systemic symptoms) or Complicated (systemic symptoms)? @ -Uncomplicated Side effects of treatment? @ -No Exacerbation, Progression, or Severe Exacerbation? @ -No Poses a threat to life or bodily function? How? (Chest pain, USA, VT, pneumonia, PE, COPD, DKA, ARF, appy, cholecystitis, CVA, Diverticulitis, Homicidal, [place] icidal, threat to staff... and all critical care pts) @ -No - Lab Data Result diagrams: 10/04/23 11:30 10/04/23 11:30 Lab Results 1110/04/23 10/04/23 Range/Units 11:20 11:30 11:30 WBC 8.0 (3.8-10.6) k/uL RBC 5.04 (4.30-5.90) m/uL Hgb 15.9 (13.0-17.5) gm/dL Hct 47.2 (39.0-53.0) % MCV 93.7 (80.0-100.0) fL MCH 31.5 (25.0-35.0) pg MCHC 33.6 (31.0-37.0) g/dL RDW 13.5 (11.5-15.5) % Plt Count 176 (150-450) k/uL MPV 8.0 Neutrophils % 52 % Lymphocytes % 33 % Monocytes % 8 % Eosinophils % 4 % Basophils % 1 % Neutrophils # 4.2 (1.3-7.7) k/uL Lymphocytes # 2.7 (1.0-4.8) k/uL Monocytes # 0.6 (0-1.0) k/uL Eosinophils # 0.3 (0-0.7) k/uL Basophils # 0.1 (0-0.2) k/uL PT 11.0 (10.0-12.5) sec INR 1.0 (<1.2) APTT 24.7 (22.0-30.0) sec Sodium (137-145) mmol/L Potassium (3.5-5.1) mmol/L Chloride (98-107) mmol/L Carbon Dioxide (22-30) mmol/L Anion Gap mmol/L BUN (9-20) mg/dL Creatinine (0.66-1.25) mg/dL Est GFR (CKD-EPI)AfAm (>60 ml/min/1.73 sqM) Est GFR (CKD-EPI)NonAf (>60 ml/min/1.73 sqM) Glucose (74-99) mg/dL Calcium (8.4-10.2) mg/dL Total Bilirubin (0.2-1.3) mg/dL AST (17-59) U/L ALT (4-49) U/L Alkaline Phosphatase (38-126) U/L Total Protein (6.3-8.2) g/dL Albumin (3.5-5.0) g/dL Amylase (30-110) U/L Lipase (23-300) U/L Urine Color Urine Appearance (Clear) Urine pH (5.0-8.0) Ur Specific [place] (1.001-1.035) Urine Protein (Negative) Urine Glucose (UA) (Negative) Urine Ketones (Negative) Urine Blood (Negative) Urine Nitrite (Negative) Urine Bilirubin (Negative) Urine Urobilinogen (<2.0) mg/dL Ur Leukocyte Esterase (Negative) Blood Type A Positive Blood Type Confirm Blood Type Recheck Bld Type Recheck Status Antibody Screen NEGATIVE Spec Expiration Date 10/04/23 10/04/23 10/04/23 Range/Units 11:30 11:30 11:30 WBC (3.8-10.6) k/uL RBC (4.30-5.90) m/uL Hgb (13.0-17.5) gm/dL Hct (39.0-53.0) % MCV (80.0-100.0) fL MCH (25.0-35.0) pg MCHC (31.0-37.0) g/dL RDW (11.5-15.5) % Plt Count (150-450) k/uL MPV Neutrophils % % Lymphocytes % % Monocytes % % Eosinophils % % Basophils % % Neutrophils # (1.3-7.7) k/uL Lymphocytes # (1.0-4.8) k/uL Monocytes # (0-1.0) k/uL Eosinophils # (0-0.7) k/uL Basophils # (0-0.2) k/uL PT (10.0-12.5) sec INR (<1.2) APTT (22.0-30.0) sec Sodium 142 (137-145) mmol/L Potassium 3.9 (3.5-5.1) mmol/L Chloride 101 (98-107) mmol/L Carbon Dioxide 30 (22-30) mmol/L Anion Gap 11 mmol/L BUN 29 H (9-20) mg/dL Creatinine 1.08 (0.66-1.25) mg/dL Est GFR (CKD-EPI)AfAm 77 (>60 ml/min/1.73 sqM) Est GFR (CKD-EPI)NonAf 66 (>60 ml/min/1.73 sqM) Glucose 132 H (74-99) mg/dL Calcium 9.5 (8.4-10.2) mg/dL Total Bilirubin 1.9 H (0.2-1.3) mg/dL AST 49 (17-59) U/L ALT 58 H (4-49) U/L Alkaline Phosphatase 116 (38-126) U/L Total Protein 7.2 (6.3-8.2) g/dL Albumin 4.7 (3.5-5.0) g/dL Amylase 146 H (30-110) U/L Lipase 445 H (23-300) U/L Urine Color Colorless Urine Appearance Clear (Clear) Urine pH 5.5 (5.0-8.0) Ur Specific [place] 1.012 (1.001-1.035) Urine Protein Negative (Negative) Urine Glucose (UA) 4+ H (Negative) Urine Ketones Negative (Negative) Urine Blood Negative (Negative) Urine Nitrite Negative (Negative) Urine Bilirubin Negative (Negative) Urine Urobilinogen <2.0 (<2.0) mg/dL Ur Leukocyte Esterase Negative (Negative) Blood Type Blood Type Confirm Blood Type Recheck No Previous Record Bld Type Recheck Status CABO Indicated Antibody Screen Spec Expiration Date 10/07/2023 - 232910/04/23 Range/Units 11:35 WBC (3.8-10.6) k/uL RBC (4.30-5.90) m/uL Hgb (13.0-17.5) gm/dL Hct (39.0-53.0) % MCV (80.0-100.0) fL MCH (25.0-35.0) pg MCHC (31.0-37.0) g/dL RDW (11.5-15.5) % Plt Count (150-450) k/uL MPV Neutrophils % % Lymphocytes % % Monocytes % % Eosinophils % % Basophils % % Neutrophils # (1.3-7.7) k/uL Lymphocytes # (1.0-4.8) k/uL Monocytes # (0-1.0) k/uL Eosinophils # (0-0.7) k/uL Basophils # (0-0.2) k/uL PT (10.0-12.5) sec INR (<1.2) APTT (22.0-30.0) sec Sodium (137-145) mmol/L Potassium (3.5-5.1) mmol/L Chloride (98-107) mmol/L Carbon Dioxide (22-30) mmol/L Anion Gap mmol/L BUN (9-20) mg/dL Creatinine (0.66-1.25) mg/dL Est GFR (CKD-EPI)AfAm (>60 ml/min/1.73 sqM) Est GFR (CKD-EPI)NonAf (>60 ml/min/1.73 sqM) Glucose (74-99) mg/dL Calcium (8.4-10.2) mg/dL Total Bilirubin (0.2-1.3) mg/dL AST (17-59) U/L ALT (4-49) U/L Alkaline Phosphatase (38-126) U/L Total Protein (6.3-8.2) g/dL Albumin (3.5-5.0) g/dL Amylase (30-110) U/L Lipase (23-300) U/L Urine Color Urine Appearance (Clear) Urine pH (5.0-8.0) Ur Specific [place] (1.001-1.035) Urine Protein (Negative) Urine Glucose (UA) (Negative) Urine Ketones (Negative) Urine Blood (Negative) Urine Nitrite (Negative) Urine Bilirubin (Negative) Urine Urobilinogen (<2.0) mg/dL Ur Leukocyte Esterase (Negative) Blood Type Blood Type Confirm A Positive Blood Type Recheck Bld Type Recheck Status Antibody Screen Spec Expiration Date Disposition Clinical Impression: Diverticulitis Disposition: HOME SELF-CARE Condition: Good Instructions (If sedation given, give patient instructions): Diverticulitis ( ED) Additional Instructions: Please return to the Emergency Department if symptoms worsen or any other concerns. Is patient prescribed a controlled substance at d/c from ED?: No Referrals: [facility],Clinic [Primary Care Provider] - 1-2 days Time of Disposition: 13:53
[2023-10-04 11:47] VITALS: RESP 18
[2023-10-04 11:49] LABS: Basophils # (A) 0.1 k/uL (0-0.2); Basophils % (A) 1 %; Eosinophils # (A) 0.3 k/uL (0-0.7); Eosinophils % (A) 4 %; HCT 47.2 % (39.0-53.0); HGB 15.9 gm/dL (13.0-17.5); Lymphocytes # (A) 2.7 k/uL (1.0-4.8); Lymphocytes % (A) 33 %; MCH 31.5 pg (25.0-35.0); MCHC 33.6 g/dL (31.0-37.0); MCV 93.7 fL (80.0-100.0); Monocytes # (A) 0.6 k/uL (0-1.0); Monocytes % (A) 8 %; Neutrophils # (A) 4.2 k/uL (1.3-7.7); Neutrophils % (A) 52 %; Platelet Count 176 k/uL (150-450); RBC 5.04 m/uL (4.30-5.90); RDW 13.5 % (11.5-15.5)
[2023-10-04 11:56] LABS: Appearance,Urine Clear (Clear); Bilirubin,Urine Negative (Negative); Blood,Urine Negative (Negative); Color,Urine Colorless; Glucose,Urine (UA) 4+ (Negative); Ketones,Urine Negative (Negative); Leukocyte Esterase,Urine Negative (Negative); Nitrite,Urine Negative (Negative); PH, Urine 5.5 (5.0-8.0); Protein,Urine Negative (Negative); Specific Gravity,Urine 1.012 (1.001-1.035); Urobilinogen,Urine <2.0 mg/dL (<2.0)
[2023-10-04 12:03] LABS: Partial Thromboplastin Time 24.7 sec (22.0-30.0)
[2023-10-04 12:05] LABS: ALT 58 U/L (4-49); AST 49 U/L (17-59); African American GFR (CKD) 77 (>60 ml/min/1.73 sqM); Albumin 4.7 g/dL (3.5-5.0); Alkaline Phosphatase 116 U/L (38-126); Amylase 146 U/L (30-110); Anion Gap 11 mmol/L; Blood Urea Nitrogen 29 mg/dL (9-20); Calcium 9.5 mg/dL (8.4-10.2); Carbon Dioxide 30 mmol/L (22-30); Chloride 101 mmol/L (98-107); Glucose 132 mg/dL (74-99); Lipase 445 U/L (23-300); Non-African American GFR(CKD) 66 (>60 ml/min/1.73 sqM); Potassium 3.9 mmol/L (3.5-5.1); Sodium 142 mmol/L (137-145); Total Bilirubin 1.9 mg/dL (0.2-1.3); Total Protein 7.2 g/dL (6.3-8.2)
--- NOTE | 2023-10-04 12:46 | CT ---
EXAMINATION TYPE: CT abdomen pelvis wo con CT DLP: 1125.2 mGycm, Automated exposure control for dose reduction was used. DATE OF EXAM: 10/04/2023 12:09 PM COMPARISON: 06/03/2020 CLINICAL INDICATION:Male, 78 years old with history of hx stone left flank pain; History of stone, le ft flank pain TECHNIQUE: Axial CT of the ;CT abdomen pelvis wo con;Sagittal and coronal reformats were created on a separate workstation. Contrast used: mL of , (none if empty) Oral contrast used: without Oral Contrast (none if empty) FINDINGS: LOWER CHEST: Cardiomegaly with severe coronary artery atherosclerosis. ABDOMEN LIVER: Unremarkable GALLBLADDER AND BILE DUCTS: Unremarkable. PANCREAS: Unremarkable. SPLEEN: Unremarkable. ADRENAL GLANDS: Unremarkable. KIDNEYS AND URETERS: No evidence of hydronephrosis or renal calculus. The ureters are unremarkable. PELVIS BLADDER: Unremarkable REPRODUCTIVE: Unremarkable. ABDOMEN & PELVIS STOMACH AND BOWEL: Small hiatal hernia, duodenum is unremarkable No evidence of bowel obstruction. Mi ld inflammation changes around the diverticula in left lower quadrant series 202 image 42. Additional scattered colonic diverticula. PERITONEUM/RETROPERITONEUM: No evidence of pneumoperitoneum or free fluid. VASCULATURE: Mild atherosclerotic calcifications are present throughout the abdominal aorta and its b ranches. No evidence of aortic aneurysm. MUSCULOSKELETAL: No acute osseous abnormalities. Moderate disc degeneration changes are present throu ghout the thoracolumbar spine. Grade 1 anterolisthesis of L4 and L5. LYMPH NODES: No gross evidence for lymphadenopathy. SOFT TISSUE/ABDOMINAL WALL: Bilateral fat-containing inguinal hernias right greater than left. Fat-co ntaining umbilical hernia. IMPRESSION: 1. There may be mild inflammation changes along the colon in the left lower quadrant. Correlate for mild minimal diverticulitis. No evidence for obstructive uropathy or renal calculus. 2. Cardiomegaly. 3. Severe coronary atherosclerosis. 4. Small hiatal hernia.
[2023-10-04 13:46] VITALS: BP 124/72; PULSE 51; TEMP 98
[2023-10-04] MEDS ORDERED: ACET/COD 300 MG/30 MG STARTER PACK 6 TAB BTL PO STA (13:53)
== END 2023-10-04 14:18 | disposition home or self-care (01) ==
LOC: EC 09:56
DX: K57.92 Diverticulitis of intestine, part unspecified, without perforation or abscess without bleeding (principal); E11.9 Type 2 diabetes mellitus without complications; E78.5 Hyperlipidemia, unspecified; I10 Essential (primary) hypertension; Z91.018 Allergy to other foods; Z79.82 Long term (current) use of aspirin; Z79.899 Other long term (current) drug therapy
CPT/HCPCS: 36415; 86900; 86901; 80053; 82150; 83690; 85025; 85610; 85730; 86850; 81003; 74176; 99284; 96374; 96361; J2270

== ENCOUNTER 2024-02-14 08:42 | Day surgery (SDC) | payer OTHER ==
[2024-02-07 13:24] VITALS: BMI 34.2
--- NOTE | 2024-02-13 11:22 | P.HPOR ---
History of Present Illness H&P Date: 02/13/24 Subjective: This is a 78 year old male that presents today for follow up evaluation regarding a year long history of progressively worsening left index and middle finger pain. He has tried some [id number] anti-inflammatory creams with minimal relief. He underwent index and middle finger MCP injections 6 months prior for a second time with only 3 weeks of symptom relief compared to 6 months of relief for his first set of injections. He has pain with grasping and when he bumps the fingers/knuckles. Physical Examination: LUE: AIN/PIN/Radial/Ulnar/Median motor intact. Radial/Ulnar/Median SILT. 2+/4 Radial/Ulnar pulses palpated. 5/5 APB, 5/5 FDI. Negative Finkelsteins, negative CMC grind, negative Durkan's compression. Range of motion 0-25 at index finger MCP joint. Range of motion 0-25 at middle finger MCP joint with pain at terminal range of motion. No locking, catching or clicking or tenderness over the A1 pulleys of any digits. Imaging: X-Rays of the left hand 3V reviewed from prior office visit demonstrate severe arthritic changes at the index and middle finger MCP joints. Advanced thumb CMC joint arthritis. Impression: 1.) Left index finger MCP arthritis, severe. 2.) Left middle finger MCP arthritis, severe. Plan: Diagnosis and treatment options were discussed with the patient. We discussed he may continue NSAIDs as needed and discussed steroid injections as well as possible MCPJ silastic implant arthroplasty. Due to the steroid injections providing steadily decreasing relief from his symptoms over the last year he wishes to pursue left index and middle finger MCP joint silastic arthroplasty. Risks and benefits of surgery including bleeding, infection, damage to surrounding tissue, need for further surgery, dislocation, residual numbness were discussed and the patient wished to go forward with surgery. PCP clearance is requested. He requests to not have a pre-operative nerve block. The patient was agreeable with this plan. CC: Chani FAUSTIN -Billy Barr DO Orthopedic Hand/Upper Extremity Surgeon Past Medical History Past Medical History: Coronary Artery Disease (CAD), Diabetes Mellitus, Hyperlipidemia, Hypertension, Myocardial Infarction (SD), Sleep Apnea/CPAP/BIPAP Additional Past Medical History / Comment(s): GOUT. HX: CELLULITIS POST RIGHT KNEE SCOPE (STREP). MRSA OF RIGHT BIG TOE. Coronary artery disease with previous CABG 3 vessel, myocardial infarction, kidney stones, Sleep Apnea- uses B-PAP. Last Myocardial Infarction Date:: 25 years ago History of Any Multi-Drug Resistant Organisms: MRSA Date of last positivie culture/infection: 05/09/10 MDRO Source:: RIGHT BIG TOE. Past Surgical History: Coronary Bypass/CABG, Heart Catheterization, Orthopedic Surgery, Tonsillectomy Additional Past Surgical History / Comment(s): BILATERAL KNEE REPLACEMENT, bi lat cataract removel. Past Anesthesia/Blood Transfusion Reactions: No Reported Reaction Smoking Status: Never smoker - Past Family History Mother Family Medical History: Coronary Artery Disease (CAD), Diabetes Mellitus Father Family Medical History: Coronary Artery Disease (CAD), Diabetes Mellitus Medications and Allergies Home Medications Medication Instructions Recorded Confirmed Type Atorvastatin [Lipitor] 40 mg PO HS 06/28/17 02/07/24 History Multivitamins, Thera [Multivitamin 1 tab PO QAM 06/28/17 07/13/21 History (formulary)] Pantoprazole Sodium 40 mg PO MOWEFR 06/28/17 02/07/24 History allopurinoL [Zyloprim] 300 mg PO QAM 06/28/17 02/07/24 History Pioglitazone [Actos] 30 mg PO QAM 11/11/19 02/07/24 History Furosemide [Lasix] 80 mg PO QAM 11/12/19 02/07/24 History Aspirin EC [Ecotrin Low Dose] 81 mg PO QAM 07/13/21 02/07/24 History Empagliflozin [Jardiance] 10 mg PO QAM 07/13/21 02/07/24 History Ezetimibe [Zetia] 10 mg PO QAM 07/13/21 02/07/24 History Nitroglycerin Sl Tabs [Nitrostat] 0.4 mg SL Q5M PRN 07/13/21 02/07/24 History Acetaminophen Tab [Tylenol] 500 mg PO Q6HR PRN tab 07/21/21 02/07/24 Rx Cholecalciferol (Vitamin D3) 2,000 unit PO QAM 02/07/24 02/07/24 History [Vitamin D3 (50 Mcg = 2000 Iu) Chew Tab] lisinopriL [Zestril] 10 mg PO QAM 02/07/24 02/07/24 History Allergies Allergy/AdvReac Type Severity Reaction Status Date / Time hazelnut Allergy Anaphylaxis Verified 02/07/24 12:18 [place] Allergy Itching Uncoded 02/07/24 12:18 "Itchy throat." Physical Examination Osteopathic Statement: *. No significant issues noted on an osteopathic structural exam other than those noted in the History and Physical/Consult.
[~2024-02-14 08:42] MED LIST changes: +HYDROmorphone 0.5 MG/0.5 ML SYRINGE IVP PRN; -LACTATED RINGERS 1,000 ML IV SCH; +LIDOCAINE 1% (10MG/ML) FOR IV START INTRADERMA PRN; -LIDOCAINE 1% 20 ML VIAL (10MG/ML) FOR IV START INTRADERMA PRN; +MIDAZOLAM 2 MG/2 ML VIAL IV PRN
[2024-02-14] MEDS: LACTATED RINGERS 1,000 ML IV SCH (09:08)
[2024-02-14 09:24] LABS: Glucose,Whole Blood 118 mg/dL (70-110)
[2024-02-14] MEDS: ONDANSETRON 4 MG/2 ML VIAL IVP ONE (09:40)
[2024-02-14] MEDS: DEXAMETHASONE SOD PHOSPHATE 4 MG/ML 1 ML VIAL IV ONE (09:40)
[2024-02-14] MEDS: MIDAZOLAM 2 MG/2 ML VIAL IVP ONE (09:50)
[2024-02-14 09:55] VITALS: RESP 16
[2024-02-14] MEDS ORDERED: KETAMINE HCL IN 0.9 % NACL 50 MG/5 ML SYRINGE ONE (10:14)
[2024-02-14] MEDS ORDERED: LIDOCAINE 1% INJ 10MG/ML (20 ML MDV) ONE (10:14)
[2024-02-14] MEDS ORDERED: PROPOFOL 10 MG/ML 20 ML VIAL IV ONE (10:14)
[2024-02-14] MEDS ORDERED: MIDAZOLAM 2 MG/2 ML VIAL ONE (10:14)
[2024-02-14] MEDS ORDERED: SODIUM CHLORIDE 0.9% (PF) 10 ML VIAL ONE (10:14)
[2024-02-14] MEDS ORDERED: DEXAMETHASONE SOD PHOSPHATE 4 MG/ML 1 ML VIAL ONE (10:14)
[2024-02-14] MEDS ORDERED: ROPIVACAINE 5 MG/ML 30 ML VIAL ONE (10:14)
[2024-02-14] MEDS: LACTATED RINGERS 1,000 ML IV ONE (11:43)
--- NOTE | 2024-02-14 12:28 | P.OP ---
Date of Procedure: 02/14/24 Preoperative Diagnosis: 1.) Left index finger MCP joint arthritis 2.) Left middle finger MCP joint arthritis Postoperative Diagnosis: 1.) Left index finger MCP joint arthritis 2.) Left middle finger MCP joint arthritis Procedure(s) Performed: 1.) Left index finger MCP joint arthroplasty with silastic implant 2.) Left middle finger MCP joint arthroplasty with silastic implant Implants: 1.) Emelina Adkins MCP joint silastic implant size 6 (Index finger) 2.) [place] Adkins MCP joint silastic implant size 5 (Middle finger) Anesthesia: regional Surgeon: Billy Barr Legal Administrator #1: Harpal Cooper Estimated Blood Loss (ml): 5 Pathology: none sent Condition: stable Disposition: PACU Description of Procedure: This is a 78 year old male who presents today for left index and middle finger MCP joint arthoplasty after failing conservative treatment in the past. Risks and benefits of surgery were discussed with the patient including bleeding, damage to surrounding tissue, infection, need for further surgery as well as risks of anesthesia including pulmonary embolism and even and the patient wished to proceed with surgical intervention. The patient was seen in the pre- operative area by myself. Consent and H&P were completed and updated. The correct extremity was marked in the pre-operative area by myself and all other questions were answered. Operative Narrative: The patient was brought to the operating room by the department of anesthesia. They remained on the portable stretcher and a rolling hand table was brought to the side of the operative extremity. Pre-operative time out was per formed indicating the correct patient, procedure and laterality. All in the room agreed. Pre-operative antibiotics were given prior to skin incision. The patient was then drifted off to sleep by the department of anesthesia. A nonsterile tourniquet was then applied to the operative extremity and the left upper extremity was then prepped and draped in normal sterile fashion. The operative extremity was the exsanguinated with an esmarch bandage and the tourniquet was inflated to 250mmHg. Attention was then drawn to the left index finger MCP joint. 15 blade scalpel was used to make a transverse incision over the dorsal aspect of the MCP joint from the index MCP to the middle finger MCP joint. Blunt dissection was taken down to the extensor tendons taking care to protect dorsal sensory nerves. Longitudinal incision was made just radial to the extensor tendon to reveal dorsal capsule. Retractors were placed deep to extensor tendon and plane was developed between dorsal capsule and extensor tendon. Longitudinal incision was made centered over the dorsal capsule and full thickness flaps were created. There was severe arthritic changes at the metacarpal head and proximal phalanx base. Osteophytes were removed with rongeur. Radial and ulnar collateral ligaments were preserved. The joint was then flexed and a micro saggital saw was used to make a parallel cut of the distal portion of the metacarpal head to remove the articular surface while preserving the metaphyseal flare and origins of the collateral ligaments. Mila was then utilized to enter into the medullary canal of the proximal phalanx, the bone was very hard and sclerotic. Canal finder awl was then used to enter the canal of the metacarpal. Sequential broaching was the performed and when a size 6 was reached, this had good fit and fill of the medullary canal. Starting awl was then inserted into the proximal phalanx shaft and sequential broaching was performed starting with a size 0 up to a size 6, this had good fit and fill of the medullary canal. Trial size 6 implant was then inserted and this matched the patients stockbridge anatomy best. The finger was ranged and stable flexion/extension was appreciated. Mini C -arm was utilized to confirm appropriate articular alignment and a symmetric gap. Attention was then drawn to the left middle finger MCP joint through the same transverse incision over the dorsal aspect of the MCP joint. Blunt dissection was taken down to the extensor tendons taking care to protect dorsal sensory nerves. Longitudinal incision was made just radial to the extensor tendon to reveal dorsal capsule. Retractors were placed deep to extensor tendon and plane was developed between dorsal capsule and extensor tendon. Longitudinal incision was made centered over the dorsal capsule and full thickness flaps were created. There was severe arthritic changes at the metacarpal head and proximal phalanx base. Osteophytes were removed with rongeur. Radial and ulnar collateral ligaments were preserved. The joint was then flexed and a micro saggital saw was used to make a parallel cut of the distal portion of the metacarpal head to remove the articular surface while preserving the metaphyseal flare and origins of the collateral ligaments. Mila was then utilized to enter into the medullary canal of the proximal phalanx, the bone was very hard and sclerotic. Canal finder awl was then used to enter the canal of the metacarpal. Sequential broaching was the performed and when a size 5 was reached, this had good fit and fill of the medullary canal. Starting awl was then inserted into the proximal phalanx shaft and sequential broaching was performed starting with a size 0 up to a size 5, this had good fit and fill of the medullary canal. Trial size 5 implant was then inserted and this matched the patients stockbridge anatomy best. The finger was ranged and stable flexion/extension was appreciated. Mini C-arm was utilized to confirm appropriate articular alignment and a symmetric gap. The wound was then irrigated. A final size 6 Adkins silastic implant was inserted into the medullary canal of the index finger and a size 5 for the middle finger under direct visualization. The finger was again ranged and stable flexion/extension was observed and radial and ulnar collateral ligaments were stressed and found to be providing good stability. Layered closure was performed with 4-0 Monocryl suture for capsular closure followed by extensor kenyon closure with running 4-0 Monocryl suture with skin closure being performed with running nylon suture. Sterile splint was applied, tourniquet was let down and the hand had immediate perfusion. Harpal POSEY was present to assist in implant placement and manipulation of the hand. The patient was transferred to PACU in stable condition. Billy Barr DO Orthopedic Hand/Upper Extremity Surgeon
[2024-02-14 12:35] VITALS: TEMP 97.4
[2024-02-14 12:44] LABS: Glucose,Whole Blood 122 mg/dL (70-110)
[2024-02-14 13:52] VITALS: BP 126/67; PULSE 47
== END 2024-02-14 14:23 | disposition home or self-care (01) ==
LOC: OR 08:42
PROVIDERS: ATTEND Orthopaedic Surgery Hand Surgery
DX: M19.042 Primary osteoarthritis, left hand (principal); E78.5 Hyperlipidemia, unspecified; G47.30 Sleep apnea, unspecified; I10 Essential (primary) hypertension; I25.10 Atherosclerotic heart disease of native coronary artery without angina pectoris; I25.2 Old myocardial infarction; M10.9 Gout, unspecified; E11.9 Type 2 diabetes mellitus without complications; Z79.84 Long term (current) use of oral hypoglycemic drugs; Z95.1 Presence of aortocoronary bypass graft; Z79.899 Other long term (current) drug therapy
CPT/HCPCS: 26531 ×2; 64415; C1713; J2250; J1100; J0690; J2405; J2001; J2795; J2704

== ENCOUNTER 2024-07-18 19:16 | Emergency (ER) | payer OTHER, MEDICARE ==
--- NOTE | 2024-07-18 19:42 | ED ---
Fall HPI - General Source: patient, family, RN notes reviewed <Paula Motley - Last Filed: 07/18/24 19:40> - General Source: patient, family, RN notes reviewed Mode of arrival: ambulatory Limitations: no limitations - History of Present Illness MD Complaint: fall <Christie Mane - Last Filed: 07/18/24 22:28> - General Chief Complaint: Fall Stated Complaint: fall, ear injury, abd pain Time Seen by Provider: 07/18/24 19:39 - History of Present Illness Initial Comments: Quick [id number] male presents emergency department from urgent care for chief complaint of a fall. Patient states that he was outside when he fell on the left year. Patient states that he is having right "kidney pain "after the fall. He denies loss of consciousness, currently denies headache, blurry vision or double vision. Denies blood thinner use. Last tetanus vaccination within the last 5 years (Paula Motley) This is a 79-year-old male who presents to the emergency department for a fall. States that he was standing on the plantar and tripped and fell off, landing on a wheelbarrow. He cut his left ear, but otherwise denies hitting his head. There was no loss of consciousness. Not taking any blood thinners. His largest concern is that he has pain over his right flank and is concerned that he may have "knocked a kidney stone loose". Pain is worse when trying to take a deep breath and with movement. Tetanus vaccine is up-to-date. He initially went to urgent care but was advised to come to the emergency department for further evaluation. (Christie Mane) - Related Data Home Medications Medication Instructions Recorded Confirmed Atorvastatin [Lipitor] 40 mg PO HS 06/28/17 02/14/24 Multivitamins, Thera [Multivitamin 1 tab PO QAM 06/28/17 02/14/24 (formulary)] Pantoprazole Sodium 40 mg PO MOWEFR 06/28/17 02/14/24 allopurinoL [Zyloprim] 300 mg PO QAM 06/28/17 02/14/24 Pioglitazone [Actos] 30 mg PO QAM 11/11/19 02/14/24 Furosemide [Lasix] 80 mg PO QAM 11/12/19 02/14/24 Aspirin EC [Ecotrin Low Dose] 81 mg PO QAM 07/13/21 02/14/24 Empagliflozin [Jardiance] 10 mg PO QAM 07/13/21 02/14/24 Ezetimibe [Zetia] 10 mg PO QAM 07/13/21 02/14/24 Nitroglycerin Sl Tabs [Nitrostat] 0.4 mg SL Q5M PRN 07/13/21 02/14/24 Cholecalciferol (Vitamin D3) 2,000 unit PO QAM 02/07/24 02/14/24 [Vitamin D3 (50 Mcg = 2000 Iu) Chew Tab] lisinopriL [Zestril] 10 mg PO QAM 02/07/24 02/14/24 Previous Rx's Medication Instructions Recorded Acetaminophen Tab [Tylenol] 500 mg PO Q6HR PRN tab 07/21/21 HYDROcodone/APAP 5-325MG [[place] 1 tab PO Q6HR PRN 3 Days #24 tab 02/14/24 5-325] Cyclobenzaprine [Flexeril] 10 mg PO TID PRN #30 tab 07/18/24 Lidocaine 5% Patch [Lidoderm 5% 1 patch TOPICAL DAILY PRN #30 patch 07/18/24 Patch] Naproxen Sodium 550 mg PO BID PRN #30 tablet 07/18/24 Allergies Allergy/AdvReac Type Severity Reaction Status Date / Time hazelnut Allergy Anaphylaxis Verified 07/18/24 19:52 Alexander Allergy Itching Uncoded 07/18/24 19:52 "Itchy throat." Review of Systems ROS Other: All systems not noted in ROS Statement are negative. <Paula Motley - Last Filed: 07/18/24 19:40> ROS Other: All systems not noted in ROS Statement are negative. <Christie Mane - Last Filed: 07/18/24 22:28> ROS Statement: Those systems with pertinent positive or pertinent negative responses have been documented in the HPI. Past Medical History Past Medical History: Coronary Artery Disease (CAD), Diabetes Mellitus, Hyperlipidemia, Hypertension, Myocardial Infarction ([place]), Sleep Apnea/CPAP/BIPAP Additional Past Medical History / Comment(s): GOUT. HX: CELLULITIS POST RIGHT KNEE SCOPE (STREP). MRSA OF RIGHT BIG TOE. Coronary artery disease with previous CABG 3 vessel, myocardial infarction, kidney stones, Sleep Apnea- uses B-PAP. Last Myocardial Infarction Date:: 25 years ago History of Any Multi-Drug Resistant Organisms: MRSA Date of last positivie culture/infection: 05/09/10 MDRO Source:: RIGHT BIG TOE. Past Surgical History: Coronary Bypass/CABG, Heart Catheterization, Orthopedic Surgery, Tonsillectomy Additional Past Surgical History / Comment(s): BILATERAL KNEE REPLACEMENT, bi lat cataract removel. Past Anesthesia/Blood Transfusion Reactions: No Reported Reaction Smoking Status: Never smoker - Past Family History Mother Family Medical History: Coronary Artery Disease (CAD), Diabetes Mellitus Father Family Medical History: Coronary Artery Disease (CAD), Diabetes Mellitus <Paula Motley - Last Filed: 07/18/24 19:40> General Exam <Paula Motley - Last Filed: 07/18/24 19:40> Limitations: no limitations General appearance: alert, in no apparent distress Head exam: Present: atraumatic, normocephalic, normal inspection Eye exam: Present: normal appearance, PERRL, EOMI. Absent: scleral icterus, conjunctival injection, periorbital swelling ENT exam: Present: other (Laceration to the left ear with minor active bleeding) Respiratory exam: Present: normal lung sounds bilaterally. Absent: respiratory distress, wheezes, rales, rhonchi, stridor Cardiovascular Exam: Present: regular rate, normal rhythm, normal heart sounds. Absent: systolic murmur, diastolic murmur, rubs, gallop, clicks GI/Abdominal exam: Present: soft, normal bowel sounds. Absent: distended, tenderness, guarding, rebound, rigid Back exam: Present: CVA tenderness (R) Neurological exam: Present: alert, oriented X3, CN II-XII intact Psychiatric exam: Present: normal affect, normal mood Skin exam: Present: warm, dry, intact, normal color. Absent: rash <Christie Mane - Last Filed: 07/18/24 22:28> - General Exam Comments Initial Comments: Visual Physical Exam Vital signs reviewed General: Well-appearing, nontoxic, no acute distress. Head: Normocephalic, atraumatic Eyes: PERRLA, EOMI ENT: Airway patent Chest: Nonlabored breathing Skin: No visual rash, normal skin tone Neuro: Alert and oriented 3 Musculoskeletal: No gross abnormalities (Paula Motley) Course Vital Signs 07/18/24 07/18/24 19:47 22:14 Temperature 97.9 F Pulse Rate 57 L 65 Respiratory 18 18 Rate Blood Pressure 126/74 129/76 O2 Sat by Pulse 100 98 Oximetry Procedures - Laceration Laceration #1 Consent Obtained: verbal consent Indication: laceration Site: other (left ear) Size (cm): 2 Description: linear Depth: simple, single layer Type of Sutures: other (Exofin) <Christie Mane - Last Filed: 07/18/24 22:28> Medical Decision Making <Paula Motley - Last Filed: 07/18/24 19:40> - Radiology Data Radiology results: report reviewed, image reviewed <Christie Mane - Last Filed: 07/18/24 22:28> - Medical Decision Making I completed the quick note portion of this chart signed Paula Motley PA-C (Paula Motley) This is a 79-year-old male who presents to the emergency department for a fall. Was pt. sent in by a medical professional or institution? @ -No Did you speak to anyone other than the patient for history? @ -No Did you review nursing and triage notes? @ -Yes, and I agree, it is accurate with regards to the patient's symptoms. Were old charts reviewed? @ -No Differential Diagnosis? @ - Differential Back Pain: Strain, zoster, cauda equina syndrome, epidural abscess, vertebral o steomyelitis, discitis, fracture, subluxation, disc herniation, DJD, spinal stenosis, dissection, AAA, pancreatitis, peptic ulcer disease, pyelonephritis, kidney stone, this is not meant to be an all-inclusive list. EKG interpreted by me (3pts min.)? @ -Not obtained X-rays interpreted by me (1pt min.)? @ -Not obtained CT interpreted by me (1pt min.)? @ -CT scan of the abdomen and pelvis obtained. My interpretation identifies no evidence of a ureteral calculus. U/S interpreted by me (1pt. min.)? @ -Not obtained What testing was considered but not performed? (CT, X-rays, U/S, labs)? Why? @ -None What meds were considered but not given? Why? @ -None Did you discuss the management of the patient with other professionals? @ -No Did you reconcile home meds? @ -No Was smoking cessation discussed for >3mins.? @ -No Was critical care preformed (if so, how long)? @ -No Were there social determinants of health that impacted care today? How? (Homelessness, low income, unemployed, alcoholism, drug addiction, transportation, low edu. Level, literacy, decrease access to med. care, [facility], rehab)? @ -No Was there de-escalation of care discussed even if they declined? (Discuss DNR or withdrawal of care, Hospice)? @ -No What co-morbidities impacted this encounter? (DM, HTN, Smoking, COPD, CAD, Cancer, CVA, Hep., AIDS, mental health diagnosis, sleep apnea, morbid obesity)? @ -None Was patient admitted / discharged? @ -Discharged. CT scan of the abdomen and pelvis obtained revealing no acute process. Patient did have tenderness over the right lower back but no traumatic changes were noted on exam. There was a laceration to his left ear that was already starting to heal and was well-approximated. This was further repaired with Exofin. Tetanus vaccine is already up-to-date. Pain was treated in the emergency department. Prescription for naproxen, Flexeril, and lidocaine patches provided. Otherwise advised follow-up with his primary care provider for reevaluation. Patient discharged home in stable condition. Case discussed with ED attending Dr. Hassan. Return precautions reviewed in depth, the patient is instructed to return to the emergency department with any new, worsening, or concerning symptoms. Patient v erbalized understanding. Undiagnosed new problem with uncertain prognosis? @ -None Drug Therapy requiring intensive monitoring for toxicity (Heparin, Nitro, Insu mariela, Cardizem)? @ -None Were any procedures done? @ -Laceration repair with exofin Diagnosis/symptom? @ -Fall, left ear laceration, low back contusion Acute, or Chronic, or Acute on Chronic? @ -Acute Uncomplicated (without systemic symptoms) or Complicated (systemic symptoms)? @ -Uncomplicated Side effects of treatment? @ -None Exacerbation, Progression, or Severe Exacerbation] @ -Not applicable Poses a threat to life or bodily function? @ -No (Christie Mane) Disposition <Paula Motley - Last Filed: 07/18/24 19:40> Is patient prescribed a controlled substance at d/c from ED?: No Time of Disposition: 21:52 <Christie Mane - Last Filed: 07/18/24 22:28> Clinical Impression: Fall, Laceration, Contusion of back Disposition: HOME SELF-CARE Condition: Fair Instructions (If sedation given, give patient instructions): Contusion in Adults (ED), Skin Adhesive Care (ED) Additional Instructions: Return to the emergency department with any new, worsening, or concerning symptoms. Keep the area dry, do not apply topical medications, and do not rub, scratch, or pick at the wound. The adhesive will naturally fall off within 5-10 days. Take the naproxen twice daily with Tylenol as needed for pain relief. You can take the Flexeril up to 3 times daily. Apply the lidocaine patches daily as well. Follow up with your primary care provider in 1-2 days. Prescriptions: Cyclobenzaprine [Flexeril] 10 mg PO TID PRN #30 tab PRN Reason: Pain Lidocaine 5% Patch [Lidoderm 5% Patch] 1 patch TOPICAL DAILY PRN #30 patch PRN Reason: Pain Naproxen Sodium 550 mg PO BID PRN #30 tablet PRN Reason: Pain Referrals: None,Stated [REFERRING] - 1-2 days
[2024-07-18 19:52] VITALS: RESP 18; TEMP 97.9
[2024-07-18] MEDS: MORPHINE SULFATE 4 MG/ML SYRINGE IVP STA (21:11)
[2024-07-18] MEDS: KETOROLAC 15 MG/ML 1 ML VIAL IVP STA (21:15)
[2024-07-18] MEDS: LIDOCAINE 4% PATCH TOPICAL ONE (21:16)
[2024-07-18] MEDS: TOPICAL SKIN ADHESIVE 1 EACH AMP TOPICAL ONE (21:17)
--- NOTE | 2024-07-18 21:25 | CT ---
EXAMINATION TYPE: CT abdomen pelvis wo con DATE OF EXAM: 07/18/2024 COMPARISON: 10/04/2023 INDICATION: Right flank pain after fall DLP: 1096.2 mGycm, Automated exposure control for dose reduction was used. CONTRAST: 0 mL of Isovue 300. Study performed without Oral Contrast TECHNIQUE: Axial images were obtained from above the diaphragm to the pubic rami in the axial plane a t 5 mm thick sections. Reconstructed images are reviewed on the computer in the coronal plane. FINDINGS: Limited CT sections are obtained the lung bases. The lung bases are clear. Small hiatal hernia is p resent. CT ABDOMEN: Liver: Normal Spleen: Normal Pancreas: Normal Adrenal glands: The adrenal glands are normal. Gallbladder: Normal Kidneys: No masses are evident. No hydronephrosis is present. No cysts are present. No renal stone s are evident. Aorta: Vascular calcification is within the aorta. Inferior vena cava: Normal. CT PELVIS: No right flank hematoma or contusion identified. Loops of bowel within the abdomen and pelvis are normal. This study is without oral contrast limi ting evaluation. Appendix: Not clearly identified. No dilated fracture or inflammatory changes evident. Urinary bladder: Normal. Genitourinary structures: Prostate has mild prominence Osseous structures: No suspicious lytic or sclerotic lesions. No acute fractures are evident IMPRESSION: 1. No acute posttraumatic abnormality
[2024-07-18] MEDS: ACET/COD 300 MG/30 MG STARTER PACK 6 TAB BTL PO STA (22:10)
[2024-07-18] MEDS: CYCLOBENZAPRINE 10MG STARTER 3 TAB BTL PO STA (22:10)
[2024-07-18] MEDS: IBUPROFEN 600 MG STARTER PACK 4 TAB BTL PO STA (22:10)
[2024-07-18 22:16] VITALS: BP 129/76; PULSE 65
== END 2024-07-18 22:16 | disposition home or self-care (01) ==
LOC: EC 19:16
CPT/HCPCS: 12001; 74176; 96374; 96375; 99284

== ENCOUNTER → 2025-02-17 | Outpatient (CLI) | payer MEDICARE, OTHER ==
--- NOTE | 2025-02-21 09:49 | MR ---
EXAMINATION TYPE: MR ankle RT wo/w con DATE OF EXAM: 02/17/2025 8:42 PM COMPARISON: None. 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 prior xray at [facility] and [facility]. TECHNIQUE: Multi planar, multi sequence imaging was performed. No Gadolinium given. IV Contrast: 11 mL Gadobutrol (None.) FINDINGS: LIGAMENTS AND TENDONS: The anterior talofibular ligament, calcaneofibular ligament, posterior talofi bular ligament, tibiofibular ligaments, and deltoid ligament are intact. The anterior compartment, p osterior compartment, lateral compartment, and medial compartment tendons have a normal appearance. The portion of the plantar fascia seen is unremarkable. OSSEOUS STRUCTURES AND CARTILAGE: r multiple calcified bodies are seen in the posterior aspect of th e tibiotalar joint largest on the anterior aspect measuring up to 10 mm and not large in the posterio r aspect measuring up to 6 mm. There is at least 6 calcified joint bodies both anteriorly and posteri krystal. There is degeneration changes of the anterior tibial plafond with subchondral bony cystic somers e. Scattered degeneration changes throughout the remainder of the visualized joints of the foot with subchondral cystic change and osteophyte formation joint space narrowing. There is calcaneal plantar spurring and Achilles enthesophyte formation. Diffuse soft tissue edema throughout the myofascial planes of the leg. IMPRESSION: 1. Multiple calcified joint bodies anterior and posterior to the tibiotalar joint suggestive of syno vial osteochondromatosis. There is associated degeneration changes of the anterior tibial plafond wit h bony edema possibly representing acute injury possibly from the joint bodies. 2. Moderate degeneration changes of the joints of the foot. 3. Diffuse soft tissue edema correlate for systemic causes. [facility], , 02/21/2025 9:47 AM
== END | disposition home or self-care (01) ==
LOC: RADMRIMAIN 20:15
PROVIDERS: ATTEND Podiatrist Foot & Ankle Surgery
DX: D16.31 Benign neoplasm of short bones of right lower limb (principal); D16.21 Benign neoplasm of long bones of right lower limb; M19.071 Primary osteoarthritis, right ankle and foot; R60.0 Localized edema
CPT/HCPCS: 73723; A9585

== ENCOUNTER 2025-02-19 07:12 | Day surgery (SDC) | payer OTHER ==
[2025-02-18 13:02] VITALS: BMI 33.0
[~2025-02-19 07:12] MED LIST changes: -HYDROmorphone 0.5 MG/0.5 ML SYRINGE IVP PRN; +LACTATED RINGERS 1,000 ML IV SCH; -LIDOCAINE 1% (10MG/ML) FOR IV START INTRADERMA PRN; -MIDAZOLAM 2 MG/2 ML VIAL IV PRN
--- NOTE | 2025-02-19 08:00 | P.GSHP ---
History of Present Illness H&P Date: 02/19/25 CHIEF COMPLAINT: Colon screen HISTORY OF PRESENT ILLNESS: The patient is a 79-year-old male who presents for colon screen. Lower endoscopy was offered for further evaluation and management. PAST MEDICAL HISTORY: Please see list. PAST SURGICAL HISTORY: Please see list. MEDICATIONS: Please see list. ALLERGIES: Please see list. SOCIAL HISTORY: No illicit drug use FAMILY HISTORY: No reports of Crohn disease or ulcerative colitis. REVIEW OF ORGAN SYSTEMS: CONSTITUTIONAL: No reports of fevers or chills. PHYSICAL EXAM: VITAL SIGNS: Stable GENERAL: Well-developed pleasant in no acute distress. HEENT: No scleral icterus. Extraocular movements grossly intact. Moist buccal mucosa. NECK: Supple without lymphadenopathy. CHEST: Unlabored respirations. Equal bilateral excursions. CARDIOVASCULAR: Regular rate and rhythm. Distal 2+ pulses. ABDOMEN: Soft, nontender, nondistended. MUSCULOSKELETAL: No clubbing, cyanosis, or edema. ASSESSMENT: 1. Colon screen. PLAN: 1. Recommend proceeding with a lower endoscopy Past Medical History Past Medical History: Coronary Artery Disease (CAD), Diabetes Mellitus, Hyperlipidemia, Hypertension, Myocardial Infarction ([place]), Sleep Apnea/CPAP/BIPAP Additional Past Medical History / Comment(s): GOUT. HX: CELLULITIS POST RIGHT KNEE SCOPE (STREP). MRSA OF RIGHT BIG TOE. Coronary artery disease with previous CABG 3 vessel, myocardial infarction, kidney stones, Sleep Apnea- uses B-PAP. NIDDM. arthritis. Last Myocardial Infarction Date:: 25 years ago History of Any Multi-Drug Resistant Organisms: MRSA Date of last positivie culture/infection: 05/09/10 MDRO Source:: RIGHT BIG TOE. Past Surgical History: Coronary Bypass/CABG, Heart Catheterization, Orthopedic Surgery, Tonsillectomy Additional Past Surgical History / Comment(s): BILATERAL KNEE REPLACEMENT, bi lat cataract removel. Lt hand surgery Past Anesthesia/Blood Transfusion Reactions: No Reported Reaction Smoking Status: Never smoker - Past Family History Mother Family Medical History: Coronary Artery Disease (CAD), Diabetes Mellitus Father Family Medical History: Coronary Artery Disease (CAD), Diabetes Mellitus Medications and Allergies Home Medications Medication Instructions Recorded Confirmed Type Atorvastatin [Lipitor] 40 mg PO HS 06/28/17 02/19/25 History Multivitamins, Thera [Multivitamin 1 tab PO QAM 06/28/17 02/19/25 History (formulary)] Pantoprazole Sodium 40 mg PO MOWEFR 06/28/17 02/19/25 History allopurinoL [Zyloprim] 300 mg PO QAM 06/28/17 02/19/25 History Pioglitazone [Actos] 30 mg PO QAM 11/11/19 02/19/25 History Furosemide [Lasix] 80 mg PO QAM 11/12/19 02/19/25 History Aspirin EC [Ecotrin Low Dose] 81 mg PO QAM 07/13/21 02/18/25 History Empagliflozin [Jardiance] 10 mg PO QAM 07/13/21 02/19/25 History Ezetimibe [Zetia] 10 mg PO QAM 07/13/21 02/19/25 History Nitroglycerin Sl Tabs [Nitrostat] 0.4 mg SL Q5M PRN 07/13/21 02/18/25 History Cholecalciferol (Vitamin D3) 2,000 unit PO QAM 02/07/24 02/18/25 History [Vitamin D3 (50 Mcg = 2000 Iu) Chew Tab] lisinopriL [Zestril] 10 mg PO QAM 02/07/24 02/19/25 History Allergies Allergy/AdvReac Type Severity Reaction Status Date / Time hazelnut Allergy Anaphylaxis Verified 02/19/25 07:51 [place] Allergy Anaphylaxis Uncoded 02/19/25 07:51
[2025-02-19 08:07] VITALS: RESP 16; TEMP 97
[2025-02-19] MEDS: IV FLUID CONTINUATION 1,000 ML IV ONE (08:07)
[2025-02-19] MEDS ORDERED: PROPOFOL 10 MG/ML 20 ML VIAL IV ONE (08:46)
[2025-02-19] MEDS ORDERED: LIDOCAINE 1% INJ 10MG/ML (20 ML MDV) ONE (08:46)
--- NOTE | 2025-02-19 09:09 | P.PCN ---
Date of Procedure: 02/19/25 Description of Procedure: PREOPERATIVE DIAGNOSIS: Personal history of colon polyps Colonoscopy screening. POSTOPERATIVE DIAGNOSIS: Colonoscopy screening. OPERATION: Colonoscopy to the cecum, ileocecal valve and appendiceal orifice. SURGEON: Whitley Goyal MD. ANESTHESIA: MAC. INDICATIONS: The patient is a 79-year-old female who presents for colonoscopy screening. Benefits and risks were described and informed consent was obtained. DESCRIPTION OF PROCEDURE: The patient had undergone Suprep. The patient had been brought into the operating room and laid in the left lateral decubitus position. After adequate intravenous sedation, the rectum was examined with 2% lidocaine jelly. No external hemorrhoids were encountered. The rectal tone was within normal limits. No lesions were palpated in the rectal vault. An Olympus colonoscope was advanced until the cecum, ileocecal valve and appendiceal orifice were clearly viewed. The prep was excellent. No scattered diverticulosis was encountered. No colonic polyps were found. No evidence of focal colitis was found. Retroflexion of the scope demonstrated grade 1 internal hemorrhoids without active bleeding or inflammation. The colon was desufflated. The patient had tolerated the procedure well. Withdrawal time was over 6 minutes. FINDINGS: Aronchick preparation quality scale 1 (1-5) Internal hemorrhoids, grade 1 No external prolapsed hemorrhoids. No arteriovenous malformations. No adenomatous polyps. No focal colitis. No scattered diverticulosis RECOMMENDATIONS: Lower endoscopy in 5 years2029 Plan - Discharge Summary Discharge Rx Participant: No New Discharge Prescriptions: Continue Multivitamins, Thera [Multivitamin (formulary)] 1 tab PO QAM Atorvastatin [Lipitor] 40 mg PO HS Pantoprazole Sodium 40 mg PO MOWEFR allopurinoL [Zyloprim] 300 mg PO QAM Pioglitazone [Actos] 30 mg PO QAM Furosemide [Lasix] 80 mg PO QAM Ezetimibe [Zetia] 10 mg PO QAM Empagliflozin [Jardiance] 10 mg PO QAM Aspirin EC [Ecotrin Low Dose] 81 mg PO QAM Nitroglycerin Sl Tabs [Nitrostat] 0.4 mg SL Q5M PRN PRN Reason: Chest Pain lisinopriL [Zestril] 10 mg PO QAM Cholecalciferol (Vitamin D3) [Vitamin D3 (50 Mcg = 2000 Iu) Chew Tab] 2,000 unit PO QAM Discharge Medication List Atorvastatin [Lipitor] 40 mg PO HS 06/28/17 [History] Multivitamins, Thera [Multivitamin (formulary)] 1 tab PO QAM 06/28/17 [History] Pantoprazole Sodium 40 mg PO MOWEFR 06/28/17 [History] allopurinoL [Zyloprim] 300 mg PO QAM 06/28/17 [History] Pioglitazone [Actos] 30 mg PO QAM 11/11/19 [History] Furosemide [Lasix] 80 mg PO QAM 11/12/19 [History] Aspirin EC [Ecotrin Low Dose] 81 mg PO QAM 07/13/21 [History] Empagliflozin [Jardiance] 10 mg PO QAM 07/13/21 [History] Ezetimibe [Zetia] 10 mg PO QAM 07/13/21 [History] Nitroglycerin Sl Tabs [Nitrostat] 0.4 mg SL Q5M PRN 07/13/21 [History] Cholecalciferol (Vitamin D3) [Vitamin D3 (50 Mcg = 2000 Iu) Chew Tab] 2,000 unit PO QAM 02/07/24 [History] lisinopriL [Zestril] 10 mg PO QAM 02/07/24 [History] Follow up Appointment(s)/Referral(s): Whitley Goyal MD [STAFF PHYSICIAN] - As Needed Patient Instructions/Handouts: Moderate Sedation (ED), Colonoscopy (GEN) Activity/Diet/Wound Care/Special Instructions: Lower endoscopy in 5 years2029 Discharge Disposition: HOME SELF-CARE
[2025-02-19 09:30] VITALS: BP 119/88; PULSE 51
== END 2025-02-19 09:56 | disposition home or self-care (01) ==
LOC: ORWHC2ENDO 07:12
PROVIDERS: ATTEND Surgery Plastic and Reconstructive Surgery
DX: Z12.11 Encounter for screening for malignant neoplasm of colon (principal); K64.0 First degree hemorrhoids; I25.10 Atherosclerotic heart disease of native coronary artery without angina pectoris; I25.2 Old myocardial infarction; I10 Essential (primary) hypertension; E78.5 Hyperlipidemia, unspecified; E11.9 Type 2 diabetes mellitus without complications; G47.33 Obstructive sleep apnea (adult) (pediatric); M10.9 Gout, unspecified; Z86.0100 Personal history of colon polyps, unspecified; Z95.1 Presence of aortocoronary bypass graft; Z90.89 Acquired absence of other organs; Z99.89 Dependence on other enabling machines and devices; Z87.442 Personal history of urinary calculi; Z96.653 Presence of artificial knee joint, bilateral; Z98.890 Other specified postprocedural states; Z83.3 Family history of diabetes mellitus; Z91.018 Allergy to other foods; Z79.02 Long term (current) use of antithrombotics/antiplatelets; Z79.82 Long term (current) use of aspirin; Z79.84 Long term (current) use of oral hypoglycemic drugs; Z79.899 Other long term (current) drug therapy
CPT/HCPCS: 45378; J2003; J2704